=== PATIENT | female | born 1940 | race Caucasian/White ===

== ENCOUNTER → 2016-07-23 | Outpatient (CLI) | payer OTHER, MEDICARE ==
[~2016-07-23] MED LIST: ASPEC81 PO; CARV25TA2 PO; CARV6.252 PO; CHOL2000 PO; CHOL4POW4 PO; CITA20TA9 PO; CLOP1TAB15 PO; DIGO0.2518 PO; DOCU-94 PO; ERGO500037 PO; FENO54TA PO; FURO20TA PO; GLC500 PO; HYG/25 PO; INSDGI SC; LDDP5 TD; LISI-729 PO; LOSA50TA6 PO; LPT40 PO; LVMIPEN SQ; NTRSLP4 SL; NVLGIPEN SQ; POTA10CA28 PO; POTA10TA PO; SDMC1 PO; VERA120T8 PO; WARF5TAB7 PO
== END | disposition home or self-care (01) ==
LOC: C.RDSM 15:00
PROVIDERS: ATTEND Physical Medicine & Rehabilitation Sports Medicine
DX: S62.109A Fracture of unspecified carpal bone, unspecified wrist, initial encounter for closed fracture (principal); X58.XXXA Exposure to other specified factors, initial encounter

== ENCOUNTER → 2016-09-06 | Outpatient (CLI) | payer OTHER, MEDICARE ==
--- NOTE | 2016-09-06 14:32 | DIAGNOSTIC IMAGING REPORT ---
LEFT WRIST 2 VIEWS CLINICAL HISTORY: CLOSED DISPLACED FX OF STYLOID PROCESS LEFT WRIST fracture COMPARISON: 06/25/2016 DISCUSSION: Patient is now out of casting material. Partial interval healing of a slightly impacted fracture distal radius. Degenerative change considered moderate of all remaining osseous structures. IMPRESSION: Partial interval healing of a slightly impacted fracture distal radius Electronically signed by: Romel Strickland M.D. 09/06/2016 2:30 PM Dictated Date/Time: 09/06/2016 2:29 PM
== END | disposition home or self-care (01) ==
LOC: C.RDSM 13:18
PROVIDERS: ATTEND Physical Medicine & Rehabilitation Sports Medicine
DX: S52.512D Displaced fracture of left radial styloid process, subsequent encounter for closed fracture with routine healing (principal); X58.XXXD Exposure to other specified factors, subsequent encounter

== ENCOUNTER 2017-01-17 13:38 | Inpatient (IN) | payer OTHER, MEDICARE ==
[~2017-01-17] VITALS: Ht 154.9 cm; Wt 60.0 kg
[~2017-01-17 13:38] MED LIST changes: -CARV6.252 PO; -CITA20TA9 PO; -CLOP1TAB15 PO; -DOCU-94 PO; -ERGO500037 PO; -FENO54TA PO; -FURO20TA PO; -HYG/25 PO; -LDDP5 TD; -LISI-729 PO; -LVMIPEN SQ; -NVLGIPEN SQ; -POTA10CA28 PO; -SDMC1 PO; -WARF5TAB7 PO
[2017-01-17] MEDS ORDERED: TRAMADOL HCL 50 MG TAB PO STA (14:01)
--- NOTE | 2017-01-17 14:06 | EMERGENCY ROOM VISIT NOTE ---
History First contact with patient: 13:44 Chief Complaint: BACK PAIN Stated Complaint: BACK PAIN-PAIN GOES TO LT SIDE OF PELVIS, LEG, History of Present Illness The patient is a 76 year old female who presents to the Emergency Room via private vehicle with complaints of "back pain, patient goes to left side of the pelvis, left leg". The patient states that for the past few weeks she has had left inferior low back pain that has been progressing, and now radiates around the left lower flank to the left side and the pelvis and down the front of the left leg. She has had 3 massages without relief. She is tried ice without relief. She is tried Tylenol and ibuprofen without relief. She rates the pain at this time as a 10/10. She ambulates without difficulty. She denies any recent heavy lifting. There is associated nausea, of which she says is secondary to the pain. There is also minimal left-sided abdominal pain. She has a history of coronary bypass, and pacemaker placement. She denies any urinary symptoms, vaginal discharge, fevers, chills, chest pain, shortness of breath. Review of Systems A complete 10-point Review of Systems was discussed with the patient, with pertinent positives and negatives listed in the History of Present Illness. All remaining Review of Systems questions can be considered negative unless otherwise specified. 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 (3) Hyponatremia (4) Pacemaker Family History Hypertension Stroke Social History Smoking Status: Former Smoker Alcohol Use: none Drug Use: none Marital Status: Housing Status: lives with family Occupation Status: retired Current/Historical Medications Scheduled Carvedilol (Coreg), 6.25 MG PO BID Chlorthalidone (Hygroton), 25 MG PO QAM Citalopram Hydrobromide (Celexa), 20 MG PO QAM Clopidogrel (Plavix), 75 MG PO QAM Ergocalciferol (Vitamin D 36792 Unit), 50,000 UNIT PO SATURDAY Fenofibrate (Tricor), 54 MG PO QAM Insulin Aspart (Novolog Flexpen), 18 UNITS SQ AC Insulin Detemir (Levemir Flextouch), 50 UNITS SQ BID Lisinopril (Zestril), 5 MG PO QAM Potassium Chloride (Micro-K Ext Rel), 10 MEQ PO BID Verapamil Hcl (Calan Sr Ext Rel), 120 MG PO HS Warfarin Sod (Jantoven), 5 MG PO HS Warfarin Sod (Jantoven), 7.5 MG PO HS Scheduled PRN Docusate Sodium (Colace), 1 CAP PO BID PRN for Constipation Allergies Coded Allergies: Amoxicillin (Unverified Allergy, Intermediate, ITCHING/, 01/17/17) Morphine (Verified Adverse Reaction, Mild, NOSE ITCHING , 01/11/16) Nifedipine (Verified Adverse Reaction, Mild, SHAKING, 01/11/16) Physical Exam Vital Signs Date Time Temp Pulse Resp B/P (MAP) Pulse Ox O2 Delivery O2 Flow Rate FiO2 01/17/17 19:32 83 16 194/80 97 Room Air 01/17/17 19:06 79 01/17/17 18:04 117/99 01/17/17 17:20 75 17 96 01/17/17 17:15 78 16 95 01/17/17 17:10 78 17 96 01/17/17 17:01 144/69 01/17/17 16:40 76 13 97 01/17/17 16:35 76 13 97 01/17/17 16:30 156/86 01/17/17 16:05 76 13 96 01/17/17 16:00 76 16 142/83 95 01/17/17 15:42 75 16 166/74 98 Room Air 01/17/17 15:41 166/74 01/17/17 14:14 75 01/17/17 14:11 96 Room Air 01/17/17 14:11 75 16 153/92 96 Room Air 01/17/17 13:40 36.5 102 20 150/86 97 Physical Exam VITAL SIGNS - Vital signs and nursing notes were reviewed. Patient is afebrile , hypertensive 150/86, suddenly tachycardic at a rate of 102 bpm, and is saturating well on room air at 97%. GENERAL -76-year-old female appearing her stated age who is in no acute distress. Communicates well with provider and answers questions appropriately. SKIN - Without rashes. Skin overlying the left flank is unremarkable. HEAD - NC/AT. LUNGS - Chest wall symmetric without accessory muscle use, intercostals retractions, or central cyanosis. Normal vesicular breath sounds CTA B/L. No wheezes, rales, or rhonchi appreciated. CARDIAC - RRR with S1/S2. No murmur, rubs, or gallops appreciated. ABDOMEN - Abdominal contour without pulsations or visible masses. BS normoactive all four quadrants. There is tenderness to palpation overlying the left mid and left lower quadrant. No suprapubic tenderness. No palpable masses , hepatosplenomegaly, or ascites noted. EXTREMITIES - No clubbing or peripheral cyanosis. No pretibial edema present. +5 /5 strength noted in UE/LE bilaterally. Positive straight leg raise on the left. There is tenderness to palpation overlying the left inferior lumbar region, left hip extending into the left leg. NEUROLOGIC - Cranial nerves II through XII grossly intact. Sensory intact to light touch throughout. PSYCH - A&Ox3 and cooperates fully with examiner. Pt is very pleasant and interacts well with examiner. RECTAL: There are what appear to be small external hemorrhoids, however rectal exam does reveal a rather circumstantial tightening of the rectum, without tenderness elicited. Hemoccult negative. Medical Decision & Procedures ER Provider Diagnostic Interpretation: LEFT PELVIS/UNILATERAL HIP 2-3VIEWS CLINICAL HISTORY: Left hip and lower back pain. COMPARISON: Pelvis and left hip radiograph June 16, 2015. FINDINGS: The sacroiliac joints and symphysis pubis are intact. There is no acute fracture within the pelvis or hips. Surgical clips projecting inferior to the left inferior pubic ramus. Left hip joint space is preserved. There is osteophytosis of the left hip. Degenerative changes at the symphysis pubis are noted. IMPRESSION: 1. No acute fracture within the pelvis or hips. 2. Mild osteoarthritis of the left hip. Electronically signed by: Delta Ervin M.D. 01/17/2017 3:09 PM Dictated Date/Time: 01/17/2017 3:07 PM L-SPINE MIN 4 VIEWS ROUTINE CLINICAL HISTORY: 76 years-old Female presenting with Left low back pain. TECHNIQUE: Frontal, lateral, and bilateral oblique views of the lumbar spine were obtained. COMPARISON: None. FINDINGS: Mild loss of vertebral body height at L5. No evidence of compression fracture. Intervertebral disc spaces are preserved. Mild spondylosis noted. No gross evidence of osseous neural foraminal narrowing. Normal bowel gas pattern. Atherosclerosis of the abdominal aorta and splenic artery noted. IMPRESSION: 1. No evidence of compression fracture. Multilevel degenerative changes with mild vertebral body height loss at L5. Electronically signed by: Cornel Naidu 01/17/2017 3:07 PM Dictated Date/Time: 01/17/2017 3:[address] SCAN OF THE ABDOMEN AND PELVIS WITHOUT CONTRAST CLINICAL HISTORY: Left low back pain, left flank and abdominal pain. COMPARISON STUDY: No previous studies for comparison. TECHNIQUE: CT scan of the abdomen and pelvis was performed from the lung bases to the proximal femurs. Images are reviewed in the axial, sagittal, and coronal planes. IV contrast was not administered for this examination. CT DOSE: 272.01 mGy.cm FINDINGS: Lower chest: There are mild basilar atelectatic changes. Liver: The unenhanced liver is normal in size, contour, and attenuation. There is no intrahepatic biliary ductal dilatation. Gallbladder: Not visualized and either contracted or surgically absent. Spleen: The spleen is mildly enlarged measuring 13 cm Pancreas: Unremarkable. Adrenal glands: Unremarkable. Kidneys: There is a 42 mm left renal cyst. There is a punctate nonobstructing lower pole right renal calculus. There is a 4 mm lower pole left renal calculus. No ureteral or bladder calculi are visualized. Bowel: There are no transition zones indicate bowel obstruction. There are scattered colonic diverticula present. There is no acute diverticulitis. There is mild fecal retention. By history the appendix is surgically absent. There is soft tissue prominence the lower rectum/anus. Correlation with digital rectal examination is recommended. Peritoneum: There is no intraperitoneal free air or abdominal ascites. Vasculature: The abdominal aorta is normal in course and caliber. Adenopathy: None. Pelvic viscera: The uterus appears surgically absent Skeletal structures: There is nonspecific edema within the left anterior abdominal wall. IMPRESSION: 1. Bilateral nephrolithiasis. No ureteral or bladder calculi identified 2. No evidence of bowel obstruction. No evidence of free air 3. Diverticulosis. No evidence of acute diverticulitis 4. Surgically absent appendix 5. Mild fecal retention 6. Nonspecific soft tissue prominence of the lower rectum/anus. Electronically signed by: Shane Nichole M.D. 01/17/2017 6:04 PM Dictated Date/Time: 01/17/2017 5:57 PM Laboratory Results 01/17/17 14:05 Red Blood Count 3.76, Mean Corpuscular Volume 89.9, Mean Corpuscular Hemoglobin 33.8, Mean Corpuscular Hemoglobin Concent 37.6, Mean Platelet Volume 9.4, Neutrophils (%) (Auto) 52.8, Lymphocytes (%) (Auto) 33.4, Monocytes (%) (Auto) 10.5, Eosinophils (%) (Auto) 2.7, Basophils (%) (Auto) 0.4, Neutrophils # (Auto ) 2.56, Lymphocytes # (Auto) 1.62, Monocytes # (Auto) 0.51, Eosinophils # (Auto ) 0.13, Basophils # (Auto) 0.02 01/17/17 14:05 01/17/17 16:56 Test 01/17/17 14:05 01/17/17 14:15 01/17/17 15:35 01/17/17 16:56 White Blood Count 4.85 K/uL (4.8-10.8) Red Blood Count 3.76 M/uL (4.2-5.4) Hemoglobin 12.7 g/dL (12.0-16.0) Hematocrit 33.8 % (37-47) Mean Corpuscular Volume 89.9 fL (80-100) Mean Corpuscular Hemoglobin 33.8 pg (25-34) Mean Corpuscular Hemoglobin Concent 37.6 g/dl (32-36) Platelet Count 169 K/uL (130-400) Mean Platelet Volume 9.4 fL (7.4-10.4) Neutrophils (%) (Auto) 52.8 % Lymphocytes (%) (Auto) 33.4 % Monocytes (%) (Auto) 10.5 % Eosinophils (%) (Auto) 2.7 % Basophils (%) (Auto) 0.4 % Neutrophils # (Auto) 2.56 K/uL (1.4-6.5) Lymphocytes # (Auto) 1.62 K/uL (1.2-3.4) Monocytes # (Auto) 0.51 K/uL (0.11-0.59) Eosinophils # (Auto) 0.13 K/uL (0-0.5) Basophils # (Auto) 0.02 K/uL (0-0.2) RDW Standard Deviation 43.2 fL (36.4-46.3) RDW Coefficient of Variation 13.2 % (11.5-14.5) Immature Granulocyte % (Auto) 0.2 % Immature Granulocyte # (Auto) 0.01 K/uL (0.00-0.02) Anion Gap 12.0 mmol/L (3-11) Est Creatinine Clear Calc Drug Dose 20.9 ml/min Estimated GFR () 29.2 Estimated GFR (Non- 25.2 BUN/Creatinine Ratio 15.4 (10-20) Calcium Level 9.8 mg/dl (8.5-10.1) Total Bilirubin 0.4 mg/dl (0.2-1) Alanine Aminotransferase (ALT/SGPT) 27 U/L (12-78) Alkaline Phosphatase 50 U/L (45-117) Creatine Kinase MB 1.3 ng/ml (0.5-3.6) Creatine Kinase MB Ratio (0-3.0) Total Protein 7.8 gm/dl (6.4-8.2) Albumin 4.2 gm/dl (3.4-5.0) Globulin 3.6 gm/dl (2.5-4.0) Albumin/Globulin Ratio 1.2 (0.9-2) Lipase 227 U/L (73-393) Beta-Hydroxybutyric Acid 1.38 mg/dL (0.2-2.81) Prothrombin Time 27.4 SECONDS (9.0-12.0) Prothromb Time International Ratio 2.5 (0.9-1.1) Activated Partial Thromboplast Time 43.1 SECONDS (21.0-31.0) Partial Thromboplastin Ratio 1.7 Urine Color YELLOW Urine Appearance CLEAR (CLEAR) Urine pH 6.5 (4.5-7.5) Urine Specific [place] 1.017 (1.000-1.030) Urine Protein NEG (NEG) Urine Glucose (UA) 3+ (NEG) Urine Ketones NEG (NEG) Urine Occult Blood NEG (NEG) Urine Nitrite NEG (NEG) Urine Bilirubin NEG (NEG) Urine Urobilinogen NEG (NEG) Urine Leukocyte Esterase NEG (NEG) Magnesium Level 1.9 mg/dl (1.8-2.4) Aspartate Amino Transf (AST/SGOT) 19 U/L (15-37) Total Creatine Kinase 88 U/L (26-192) Chemistry Specimen Hemolysis Test 01/17/17 19:55 Osmolality 287 mOsm/kg (280-300) Medications Administered Medications (Trade) Dose Ordered Sig/Estephanie Route Start Time Stop Time Status Last Admin Dose Admin Tramadol HCl (Ultram Tab) 50 mg NOW STAT PO 01/17/17 14:01 01/17/17 14:02 DC 01/17/17 14:08 50 MG Sodium Chloride 1,000 ml @ 200 mls/hr Q5H STAT IV 01/17/17 15:10 01/17/17 20:09 DC 01/17/17 15:37 200 MLS/HR Sodium Chloride 500 ml @ 500 mls/hr Q1H STAT IV 01/17/17 15:16 01/17/17 16:15 DC 01/17/17 15:37 500 MLS/HR Acetaminophen/ Hydrocodone Bitart ([place] 5/325 Tab) 1 tab NOW STAT PO 01/17/17 19:38 01/17/17 19:39 DC 01/17/17 19:47 1 TAB Medical Decision Patient was seen and evaluated as above. After obtaining a thorough history and physical examination IV access was initiated and the above workup was performed. Patient was asked to stay with left hip pain, as well as pain rating around from the low back to the left groin. There is been no vaginal discharge. Radiographs did not reveal any acute process. The case was discussed with my attending, and the decision was made to obtain a contrasted study of the abdomen and pelvis via oral contrast. Patient's creatinine was noted to be elevated therefore IV contrast was not pursued. This reveals that there is a potential rectal mass, as well as abdominal wall edema, but no fracture. Patient's CBC reveals no leukocytosis. Anemia noted with red blood cell count at 3.76. Hemoglobin is unremarkable. INR is 2.5. CMP reveals sodium low at 125, potassium is within normal limits, chloride low at 89, anion gap high at 12, BUN high at 29, and creatinine high at 1.9. Patient's random glucose was high at 338. I suspect the patient at this time is also experiencing nausea perhaps secondary to the sodium abnormality. She'll be given normal saline. She was given tramadol for her pain reevaluated still feeling pain therefore was given [place] tablet. At this time I do believe that inpatient management is warranted secondary to the patient's overall pain, low sodium, acute renal failure and clinical scenario. The case was discussed with my attending, and subsequently the hospitalist. Please refer to further documentation regarding her stay. In evaluation treatment this patient following differential diagnoses were entertained: Hyponatremia, fracture of the hip, abdominal etiologies, infection , among others. Patient's blood pressure was elevated today, which I believe secondary to the pain. I personally reviewed the medication list. Impression Primary Impression: Hip pain Additional Impressions: Hyponatremia Acute renal failure (ARF) Departure Information Referrals Shankar Payne M.D. (PCP) Patient Instructions My [facility] Problem Qualifiers Primary Impression: Hip pain Laterality: left Qualified Codes: M25.552 - Pain in left hip
[2017-01-17] MEDS ORDERED: DOCU-94 PO (14:20)
[2017-01-17 14:22] LABS: BASO % 0.4 %; BASO ABS # 0.02 K/uL (0-0.2); COMPLETE YES; EOS % 2.7 %; HEMATOCRIT 33.8 % (37-47); IG% 0.2 %; LYMPH % 33.4 %; LYMPH ABS # 1.62 K/uL (1.2-3.4); MEAN CELL VOLUME 89.9 fL (80-100); MEAN CORPUSCULAR HEMOGLOBIN 33.8 pg (25-34); MEAN CORPUSCULAR HGB CONC 37.6 g/dl (32-36); MEAN PLATELET VOLUME 9.4 fL (7.4-10.4); MONO % 10.5 %; NEUT % 52.8 %; PLATELET COUNT 169 K/uL (130-400); RED BLOOD COUNT 3.76 M/uL (4.2-5.4); WHITE BLOOD COUNT 4.85 K/uL (4.8-10.8)
[2017-01-17] MEDS ORDERED: LISI-729 PO (14:33)
[2017-01-17] MEDS ORDERED: POTA10CA28 PO (14:33)
[2017-01-17] MEDS ORDERED: ERGO500037 PO (14:33)
[2017-01-17] MEDS ORDERED: NVLGIPEN SQ (14:33)
[2017-01-17] MEDS ORDERED: CARV6.252 PO (14:33)
[2017-01-17] MEDS ORDERED: LVMIPEN SQ ×2 (14:33→14:42)
[2017-01-17] MEDS ORDERED: FENO54TA PO (14:33)
[2017-01-17] MEDS ORDERED: CLOP1TAB15 PO (14:33)
[2017-01-17] MEDS ORDERED: HYG/25 PO (14:33)
[2017-01-17] MEDS ORDERED: WARF5TAB7 PO (14:33)
[2017-01-17] MEDS ORDERED: CITA20TA9 PO (14:33)
[2017-01-17 15:07] LABS: ALB/GLOB RATIO 1.2 (0.9-2); ALKALINE PHOSPHATASE 50 U/L (45-117); ALT/SGPT 27 U/L (12-78); BLOOD UREA NITROGEN 29 mg/dl (7-18); BUN/CREATININE RATIO 15.4 (10-20); CALCIUM 9.8 mg/dl (8.5-10.1); CARBON DIOXIDE 24 mmol/L (21-32); CHLORIDE 89 mmol/L (98-107); GLUCOSE 338 mg/dl (70-99); SODIUM 125 mmol/L (136-145)
--- NOTE | 2017-01-17 15:08 | DIAGNOSTIC IMAGING REPORT ---
L-SPINE MIN 4 VIEWS ROUTINE CLINICAL HISTORY: 76 years-old Female presenting with Left low back pain. TECHNIQUE: Frontal, lateral, and bilateral oblique views of the lumbar spine were obtained. COMPARISON: None. FINDINGS: Mild loss of vertebral body height at L5. No evidence of compression fracture. Intervertebral disc spaces are preserved. Mild spondylosis noted. No gross evidence of osseous neural foraminal narrowing. Normal bowel gas pattern. Atherosclerosis of the abdominal aorta and splenic artery noted. IMPRESSION: 1. No evidence of compression fracture. Multilevel degenerative changes with mild vertebral body height loss at L5. Electronically signed by: Cornel Naidu 01/17/2017 3:07 PM Dictated Date/Time: 01/17/2017 3:04 PM
[2017-01-17] MEDS ORDERED: SODIUM CHLORIDE 0.9% 1000ML 1,000 ML IV STA (15:10)
--- NOTE | 2017-01-17 15:10 | DIAGNOSTIC IMAGING REPORT ---
LEFT PELVIS/UNILATERAL HIP 2-3VIEWS CLINICAL HISTORY: Left hip and lower back pain. COMPARISON: Pelvis and left hip radiograph June 16, 2015. FINDINGS: The sacroiliac joints and symphysis pubis are intact. There is no acute fracture within the pelvis or hips. Surgical clips projecting inferior to the left inferior pubic ramus. Left hip joint space is preserved. There is osteophytosis of the left hip. Degenerative changes at the symphysis pubis are noted. IMPRESSION: 1. No acute fracture within the pelvis or hips. 2. Mild osteoarthritis of the left hip. Electronically signed by: Delta Ervin M.D. 01/17/2017 3:09 PM Dictated Date/Time: 01/17/2017 3:07 PM
[2017-01-17] MEDS ORDERED: SODIUM CHLORIDE 0.9% 500ML 500 ML IV STA (15:16)
[2017-01-17 15:28] LABS: BETA-HYDROXYBUTYRATE 1.38 mg/dL (0.2-2.81)
[2017-01-17 15:54] LABS: URINE APPEARANCE CLEAR (CLEAR); URINE BILIRUBIN NEG (NEG); URINE COLOR YELLOW; URINE NITRITE NEG (NEG); URINE PH 6.5 (4.5-7.5); URINE SPECIFIC GRAVITY 1.017 (1.000-1.030); UROBILINOGEN NEG (NEG); ZZUR CULT IF INDIC CLEAN CATCH NO
[2017-01-17 16:03] LABS: MANUAL MICROSCOPIC REQUIRED? NO; REVIEW REQ? NO
[2017-01-17 16:05] LABS: INR 2.5 (0.9-1.1); PARTIAL THROMBOPLASTIN RATIO 1.7; PROTHROMBIN TIME (PATIENT) 27.4 SECONDS (9.0-12.0)
--- NOTE | 2017-01-17 16:32 | EMERGENCY ROOM VISIT NOTE ---
ED Visit Note First contact with patient: 13:44 Patient was seen by our PA/INVENTORY CONTROL MANAGER. I was involved in the patient's care and did evaluate the patient myself. I was involved in the care throughout the ER stay. The patient presents with some left sided flank and abdominal pain. Laboratory workup is suggestive of some renal insufficiency/failure. Sodium slightly low. Sugar is high in the 300s. No leukocytosis. A CT has been ordered of the abdomen and pelvis. This is being done for the possibility of urinary obstruction or even diverticulitis. This result is pending. The patient's disposition will be determined based on the results of the CT scan and her continued course in the ER.
[2017-01-17 18:05] LABS: MAGNESIUM 1.9 mg/dl (1.8-2.4)
--- NOTE | 2017-01-17 18:05 | DIAGNOSTIC IMAGING REPORT ---
CT SCAN OF THE ABDOMEN AND PELVIS WITHOUT CONTRAST CLINICAL HISTORY: Left low back pain, left flank and abdominal pain. COMPARISON STUDY: No previous studies for comparison. TECHNIQUE: CT scan of the abdomen and pelvis was performed from the lung bases to the proximal femurs. Images are reviewed in the axial, sagittal, and coronal planes. IV contrast was not administered for this examination. CT DOSE: 272.01 mGy.cm FINDINGS: Lower chest: There are mild basilar atelectatic changes. Liver: The unenhanced liver is normal in size, contour, and attenuation. There is no intrahepatic biliary ductal dilatation. Gallbladder: Not visualized and either contracted or surgically absent. Spleen: The spleen is mildly enlarged measuring 13 cm Pancreas: Unremarkable. Adrenal glands: Unremarkable. Kidneys: There is a 42 mm left renal cyst. There is a punctate nonobstructing lower pole right renal calculus. There is a 4 mm lower pole left renal calculus. No ureteral or bladder calculi are visualized. Bowel: There are no transition zones indicate bowel obstruction. There are scattered colonic diverticula present. There is no acute diverticulitis. There is mild fecal retention. By history the appendix is surgically absent. There is soft tissue prominence the lower rectum/anus. Correlation with digital rectal examination is recommended. Peritoneum: There is no intraperitoneal free air or abdominal ascites. Vasculature: The abdominal aorta is normal in course and caliber. Adenopathy: None. Pelvic viscera: The uterus appears surgically absent Skeletal structures: There is nonspecific edema within the left anterior abdominal wall. IMPRESSION: 1. Bilateral nephrolithiasis. No ureteral or bladder calculi identified 2. No evidence of bowel obstruction. No evidence of free air 3. Diverticulosis. No evidence of acute diverticulitis 4. Surgically absent appendix 5. Mild fecal retention 6. Nonspecific soft tissue prominence of the lower rectum/anus. Electronically signed by: Shane Nichole M.D. 01/17/2017 6:04 PM Dictated Date/Time: 01/17/2017 5:57 PM
[2017-01-17] MEDS ORDERED: HYDROCODONE/ACETAMOPHEN 5/325MG TAB PO STA (19:38)
[2017-01-17] MEDS ORDERED: DOCUSATE SODIUM 100 MG CAP PO PRN (19:45)
--- NOTE | 2017-01-17 19:59 | History and Physical ---
History & Physical Date & Time of Service: Jan 17, 2017 at 19:57 Chief Complaint: Back Pain-Pain Goes To Lt Side Of Pelvis, Leg, Primary Care Physician: Shankar Payne M.D. History of Present Illness Source: patient Family History Hypertension Stroke Social History Smoking Status: Former Smoker Drug Use: none Marital Status: Occupational Status: retired Immunizations History of Influenza Vaccine: Yes History of Tetanus Vaccine?: Yes History of Pneumococcal: No History of Hepatitis B Vaccine: No Multi-Drug Resistant Organisms History of MDRO: No Allergies Coded Allergies: Amoxicillin (Unverified Allergy, Intermediate, ITCHING/, 01/17/17) Morphine (Verified Adverse Reaction, Mild, NOSE ITCHING , 01/11/16) Nifedipine (Verified Adverse Reaction, Mild, SHAKING, 01/11/16) Home Medications Scheduled Carvedilol (Coreg), 6.25 MG PO BID Chlorthalidone (Hygroton), 25 MG PO QAM Citalopram Hydrobromide (Celexa), 20 MG PO QAM Clopidogrel (Plavix), 75 MG PO QAM Ergocalciferol (Vitamin D 89870 Unit), 50,000 UNIT PO SATURDAY Fenofibrate (Tricor), 54 MG PO QAM Insulin Aspart (Novolog Flexpen), 18 UNITS SQ AC Insulin Detemir (Levemir Flextouch), 50 UNITS SQ BID Lisinopril (Zestril), 5 MG PO QAM Potassium Chloride (Micro-K Ext Rel), 10 MEQ PO BID Verapamil Hcl (Calan Sr Ext Rel), 120 MG PO HS Warfarin Sod (Jantoven), 5 MG PO HS Warfarin Sod (Jantoven), 7.5 MG PO HS Scheduled PRN Docusate Sodium (Colace), 1 CAP PO BID PRN for Constipation Physical Exam Vital Signs Date Time Temp Pulse Resp B/P (MAP) Pulse Ox O2 Delivery O2 Flow Rate FiO2 01/17/17 19:32 83 16 194/80 97 Room Air 01/17/17 19:06 79 01/17/17 18:04 117/99 01/17/17 17:20 75 17 96 01/17/17 17:15 78 16 95 01/17/17 17:10 78 17 96 01/17/17 17:01 144/69 01/17/17 16:40 76 13 97 01/17/17 16:35 76 13 97 01/17/17 16:30 156/86 01/17/17 16:05 76 13 96 01/17/17 16:00 76 16 142/83 95 01/17/17 15:42 75 16 166/74 98 Room Air 01/17/17 15:41 166/74 01/17/17 14:14 75 01/17/17 14:11 96 Room Air 01/17/17 14:11 75 16 153/92 96 Room Air 01/17/17 13:40 36.5 102 20 150/86 97 Diagnostics Laboratory Results Results Past 24 Hours Test 01/17/17 14:05 01/17/17 14:15 01/17/17 15:35 01/17/17 16:56 Range/Units White Blood Count 4.85 4.8-10.8 K/uL Red Blood Count 3.76 4.2-5.4 M/uL Hemoglobin 12.7 12.0-16.0 g/dL Hematocrit 33.8 37-47 % Mean Corpuscular Volume 89.9 80-100 fL Mean Corpuscular Hemoglobin 33.8 25-34 pg Mean Corpuscular Hemoglobin Concent 37.6 32-36 g/dl Platelet Count 169 130-400 K/uL Mean Platelet Volume 9.4 7.4-10.4 fL Neutrophils (%) (Auto) 52.8 % Lymphocytes (%) (Auto) 33.4 % Monocytes (%) (Auto) 10.5 % Eosinophils (%) (Auto) 2.7 % Basophils (%) (Auto) 0.4 % Neutrophils # (Auto) 2.56 1.4-6.5 K/uL Lymphocytes # (Auto) 1.62 1.2-3.4 K/uL Monocytes # (Auto) 0.51 0.11-0.59 K/uL Eosinophils # (Auto) 0.13 0-0.5 K/uL Basophils # (Auto) 0.02 0-0.2 K/uL RDW Standard Deviation 43.2 36.4-46.3 fL RDW Coefficient of Variation 13.2 11.5-14.5 % Immature Granulocyte % (Auto) 0.2 % Immature Granulocyte # (Auto) 0.01 0.00-0.02 K/uL Sodium Level 125 136-145 mmol/L Potassium Level 4.0 3.5-5.1 mmol/L Chloride Level 89 98-107 mmol/L Carbon Dioxide Level 24 21-32 mmol/L Anion Gap 12.0 3-11 mmol/L Blood Urea Nitrogen 29 7-18 mg/dl Creatinine 1.90 0.60-1.20 mg/dl Est Creatinine Clear Calc Drug Dose 20.9 ml/min Estimated GFR () 29.2 Estimated GFR (Non- 25.2 BUN/Creatinine Ratio 15.4 10-20 Random Glucose 338 70-99 mg/dl Calcium Level 9.8 8.5-10.1 mg/dl Magnesium Level 1.9 1.8-2.4 mg/dl Total Bilirubin 0.4 0.2-1 mg/dl Aspartate Amino Transf (AST/SGOT) 19 15-37 U/L Alanine Aminotransferase (ALT/SGPT) 27 12-78 U/L Alkaline Phosphatase 50 45-117 U/L Total Creatine Kinase 88 26-192 U/L Creatine Kinase MB 1.3 0.5-3.6 ng/ml Creatine Kinase MB Ratio 0-3.0 Total Protein 7.8 6.4-8.2 gm/dl Albumin 4.2 3.4-5.0 gm/dl Globulin 3.6 2.5-4.0 gm/dl Albumin/Globulin Ratio 1.2 0.9-2 Lipase 227 73-393 U/L Beta-Hydroxybutyric Acid 1.38 0.2-2.81 mg/dL Prothrombin Time 27.4 9.0-12.0 SECONDS Prothromb Time International Ratio 2.5 0.9-1.1 Activated Partial Thromboplast Time 43.1 21.0-31.0 SECONDS Partial Thromboplastin Ratio 1.7 Urine Color YELLOW Urine Appearance CLEAR CLEAR Urine pH 6.5 4.5-7.5 Urine Specific [place] 1.017 1.000-1.030 Urine Protein NEG NEG Urine Glucose (UA) 3+ NEG Urine Ketones NEG NEG Urine Occult Blood NEG NEG Urine Nitrite NEG NEG Urine Bilirubin NEG NEG Urine Urobilinogen NEG NEG Urine Leukocyte Esterase NEG NEG Chemistry Specimen Hemolysis Test 01/17/17 19:08 Range/Units Diagnostic Radiology XR hip 1. No acute fracture within the pelvis or hips. 2. Mild osteoarthritis of the left hip. CT abd/pelvis 1. Bilateral nephrolithiasis. No ureteral or bladder calculi identified 2. No evidence of bowel obstruction. No evidence of free air 3. Diverticulosis. No evidence of acute diverticulitis 4. Surgically absent appendix 5. Mild fecal retention 6. Nonspecific soft tissue prominence of the lower rectum/anus. Impression VTE Prophylaxis VTE Risk Assessment Done? Y/N: Yes Risk Level: Moderate
[2017-01-17] MEDS ORDERED: HEPARIN SOD 5000 UNIT/0.5 ML CARP SQ SCH (20:00)
[2017-01-17] MEDS ORDERED: MAGNESIUM HYDROXIDE SUSP 30 ML UDC PO PRN (20:00)
[2017-01-17] MEDS ORDERED: ALUMINUM/MAGNESIUM/SIMETH (MAALOX MAX) 30 ML UDC PO PRN (20:00)
--- NOTE | 2017-01-17 20:30 | History and Physical ---
History & Physical Date & Time of Service: Jan 17, 2017 at 20:12 Chief Complaint: Back Pain-Pain Goes To Lt Side Of Pelvis, Leg, Primary Care Physician: Shankar Payne M.D. History of Present Illness Source: patient 76 y/o F Hx CAD - CABG 12/28, IDDM, HTN, AF, atrial pacer. Pt presents with a primary compliant of L hip pain. She states that this has been progressive over the course of 2 days and she now has difficulty walking. She denies trauma to the area. She denies CP, SOB, N/V, diarrhea, dysuria or fevers. Initial labs are notable for a sodium of 125, ARF and hyperglycemia. Imaging did not reveal any acute fractures. A CT abdomen/pelvis was however suspicious for a soft tissue mass in the rectum. She did not have any related symptoms. Past Medical/Surgical History 1) CAD - NSTEMI 12/28 - cath revealed 90% stenosis of the LAD and RCA - she was referred for CABG at [place] 2) Osteoarhritis - B/L knee arthroscopy, L wrist surgery 3) IDDM 4) HTN 5) HPL 6) Chronic AF 7) Atrial pacer Family History Hypertension Stroke Social History Smoking Status: Former Smoker Drug Use: none Marital Status: Occupational Status: retired Immunizations History of Influenza Vaccine: Yes History of Tetanus Vaccine?: Yes History of Pneumococcal: No History of Hepatitis B Vaccine: No Multi-Drug Resistant Organisms History of MDRO: No Allergies Coded Allergies: Amoxicillin (Unverified Allergy, Intermediate, ITCHING/, 01/17/17) Morphine (Verified Adverse Reaction, Mild, NOSE ITCHING , 01/11/16) Nifedipine (Verified Adverse Reaction, Mild, SHAKING, 01/11/16) Home Medications Scheduled Carvedilol (Coreg), 6.25 MG PO BID Chlorthalidone (Hygroton), 25 MG PO QAM Citalopram Hydrobromide (Celexa), 20 MG PO QAM Clopidogrel (Plavix), 75 MG PO QAM Ergocalciferol (Vitamin D 05603 Unit), 50,000 UNIT PO SATURDAY Fenofibrate (Tricor), 54 MG PO QAM Insulin Aspart (Novolog Flexpen), 18 UNITS SQ AC Insulin Detemir (Levemir Flextouch), 50 UNITS SQ BID Lisinopril (Zestril), 5 MG PO QAM Potassium Chloride (Micro-K Ext Rel), 10 MEQ PO BID Verapamil Hcl (Calan Sr Ext Rel), 120 MG PO HS Warfarin Sod (Jantoven), 5 MG PO HS Warfarin Sod (Jantoven), 7.5 MG PO HS Scheduled PRN Docusate Sodium (Colace), 1 CAP PO BID PRN for Constipation Review of Systems Constitutional: No fever, No chills, No sweats Eyes: No worsening of vision ENT: No hearing loss, No unusual epistaxis, No nasal symptoms Respiratory: No cough, No wheezing Cardiovascular: No chest pain, No orthopnea, No PND Abdomen: No pain, No nausea, No vomiting Musculoskeletal: + joint pain (L hip pain as above) Genitourinary - Female: No dysuria, No urinary frequency, No urinary urgency Neurologic: No memory loss, No paralysis, No weakness Psychiatric: No depression symptoms Endocrine: No fatigue Hematologic / Lymphatic: No abnormal bleeding/bruising Integumentary: No rash Allergic / Immunologic: No environmental allergies Physical Exam Vital Signs Date Time Temp Pulse Resp B/P (MAP) Pulse Ox O2 Delivery O2 Flow Rate FiO2 01/17/17 19:32 83 16 194/80 97 Room Air 01/17/17 19:06 79 01/17/17 18:04 117/99 01/17/17 17:20 75 17 96 01/17/17 17:15 78 16 95 01/17/17 17:10 78 17 96 01/17/17 17:01 144/69 01/17/17 16:40 76 13 97 01/17/17 16:35 76 13 97 01/17/17 16:30 156/86 01/17/17 16:05 76 13 96 01/17/17 16:00 76 16 142/83 95 01/17/17 15:42 75 16 166/74 98 Room Air 01/17/17 15:41 166/74 01/17/17 14:14 75 01/17/17 14:11 96 Room Air 01/17/17 14:11 75 16 153/92 96 Room Air 01/17/17 13:40 36.5 102 20 150/86 97 General Appearance: WD/WN, no apparent distress Head: normocephalic Eyes: normal inspection ENT: normal ENT inspection, hearing grossly normal, TMs normal, pharynx normal Neck: supple, no JVD Respiratory/Chest: chest non-tender, lungs clear Cardiovascular: regular rate, rhythm, no edema, no gallop, + systolic murmur ( Mild) Abdomen/GI: normal bowel sounds, non tender, soft Genitourinary - Female: external genitalia normal, normal pelvic exam, normal cervix Back: normal inspection, no CVA tenderness, no muscle spasm Extremities/Musculoskelatal: normal inspection, no calf tenderness, normal capillary refill, no pedal edema, + pertinent finding (There was no ROM limitiation of the LLE - hip pain was elicited with passive movement. ) Neurologic/Psych: automation qtp tester II-XII nml as tested, no motor/sensory deficits, alert, normal mood/affect, normal reflexes, oriented x 3 Skin: normal color, warm/dry, no rash Diagnostics Laboratory Results Results Past 24 Hours Test 01/17/17 14:05 01/17/17 14:15 01/17/17 15:35 01/17/17 16:56 Range/Units White Blood Count 4.85 4.8-10.8 K/uL Red Blood Count 3.76 4.2-5.4 M/uL Hemoglobin 12.7 12.0-16.0 g/dL Hematocrit 33.8 37-47 % Mean Corpuscular Volume 89.9 80-100 fL Mean Corpuscular Hemoglobin 33.8 25-34 pg Mean Corpuscular Hemoglobin Concent 37.6 32-36 g/dl Platelet Count 169 130-400 K/uL Mean Platelet Volume 9.4 7.4-10.4 fL Neutrophils (%) (Auto) 52.8 % Lymphocytes (%) (Auto) 33.4 % Monocytes (%) (Auto) 10.5 % Eosinophils (%) (Auto) 2.7 % Basophils (%) (Auto) 0.4 % Neutrophils # (Auto) 2.56 1.4-6.5 K/uL Lymphocytes # (Auto) 1.62 1.2-3.4 K/uL Monocytes # (Auto) 0.51 0.11-0.59 K/uL Eosinophils # (Auto) 0.13 0-0.5 K/uL Basophils # (Auto) 0.02 0-0.2 K/uL RDW Standard Deviation 43.2 36.4-46.3 fL RDW Coefficient of Variation 13.2 11.5-14.5 % Immature Granulocyte % (Auto) 0.2 % Immature Granulocyte # (Auto) 0.01 0.00-0.02 K/uL Sodium Level 125 136-145 mmol/L Potassium Level 4.0 3.5-5.1 mmol/L Chloride Level 89 98-107 mmol/L Carbon Dioxide Level 24 21-32 mmol/L Anion Gap 12.0 3-11 mmol/L Blood Urea Nitrogen 29 7-18 mg/dl Creatinine 1.90 0.60-1.20 mg/dl Est Creatinine Clear Calc Drug Dose 20.9 ml/min Estimated GFR () 29.2 Estimated GFR (Non- 25.2 BUN/Creatinine Ratio 15.4 10-20 Random Glucose 338 70-99 mg/dl Calcium Level 9.8 8.5-10.1 mg/dl Magnesium Level 1.9 1.8-2.4 mg/dl Total Bilirubin 0.4 0.2-1 mg/dl Aspartate Amino Transf (AST/SGOT) 19 15-37 U/L Alanine Aminotransferase (ALT/SGPT) 27 12-78 U/L Alkaline Phosphatase 50 45-117 U/L Total Creatine Kinase 88 26-192 U/L Creatine Kinase MB 1.3 0.5-3.6 ng/ml Creatine Kinase MB Ratio 0-3.0 Total Protein 7.8 6.4-8.2 gm/dl Albumin 4.2 3.4-5.0 gm/dl Globulin 3.6 2.5-4.0 gm/dl Albumin/Globulin Ratio 1.2 0.9-2 Lipase 227 73-393 U/L Beta-Hydroxybutyric Acid 1.38 0.2-2.81 mg/dL Prothrombin Time 27.4 9.0-12.0 SECONDS Prothromb Time International Ratio 2.5 0.9-1.1 Activated Partial Thromboplast Time 43.1 21.0-31.0 SECONDS Partial Thromboplastin Ratio 1.7 Urine Color YELLOW Urine Appearance CLEAR CLEAR Urine pH 6.5 4.5-7.5 Urine Specific [place] 1.017 1.000-1.030 Urine Protein NEG NEG Urine Glucose (UA) 3+ NEG Urine Ketones NEG NEG Urine Occult Blood NEG NEG Urine Nitrite NEG NEG Urine Bilirubin NEG NEG Urine Urobilinogen NEG NEG Urine Leukocyte Esterase NEG NEG Chemistry Specimen Hemolysis Test 01/17/17 19:55 Range/Units Diagnostic Radiology CT abdomen / pelvis 1. Bilateral nephrolithiasis. No ureteral or bladder calculi identified 2. No evidence of bowel obstruction. No evidence of free air 3. Diverticulosis. No evidence of acute diverticulitis 4. Surgically absent appendix 5. Mild fecal retention 6. Nonspecific soft tissue prominence of the lower rectum/anus. XR hip 1. No acute fracture within the pelvis or hips. 2. Mild osteoarthritis of the left hip. EKG Atrial pacing 75 BPM - previous anterior infarct Impression Assessment and Plan 76 y/o F Hx CAD - CABG 12/28, IDDM, HTN, AF, atrial pacer. Pt presents with a primary compliant of L hip pain. She states that this has been progressive over the course of 2 days and she now has difficulty walking. She denies trauma to the area. She denies CP, SOB, N/V, diarrhea, dysuria or fevers. Initial labs are notable for a sodium of 125, ARF and hyperglycemia. Imaging did not reveal any acute fractures. A CT abdomen/pelvis was however suspicious for a soft tissue mass in the rectum. She did not have any related symptoms. 1) Hip pain - having difficulty with ambulation - no evidence of fracture - per pt request we will consult her orthopedist. She can be scheduled for PT after evaluation. 2) Hyponatremia - likely closer to 128 when corrected for Glu - this is chronic to a degree so that target should likely be around 132 per previous records. Will provide IVF and recheck AM. Will obtain Jose and UOSM. We will hold Chlorthalidone and she may need a substitution prior to D/C. 3) ARF - possibly prerenal - Jose, Ucreat ordered - IVF - hold Chlorthalidone and Lisinopril - recheck BMP AM 4) Mass seen in rectum - surgery consulted - no related symptoms at present. 5) HTN - cont, Coreg - can provide Hydralazine PRN if needed 6) CAD - post CABG 12/28 - cont Coreg, statin, ASA 7) DM - placed on SS Full code - Heparin prophylaxis Total time for this admit including review of labs, meds, EKG, imaging, records - discussion with pt and ER attending - 40 min Level of Care Med/Surg Resuscitation Status FULL RESUSCITATION VTE Prophylaxis VTE Risk Assessment Done? Y/N: Yes Risk Level: Moderate Given or contraindicated: Unfractionated heparin SQ
[2017-01-17 21:00] VITALS: BP 161/88; PULSE 76; TEMP 36.9; O2SAT 94; BMI 25.0
[2017-01-17] MEDS: VERAPAMIL HCL 120 MG TABCR PO SCH (21:54)
[2017-01-17] MEDS: CARVEDILOL 6.25 MG TAB PO SCH (21:54)
[2017-01-17] MEDS: WARFARIN SOD 5 MG TAB PO SCH (21:55)
[2017-01-17] MEDS ORDERED: POLYETHYLENE (MIRALAX) 17 GM PACK PO PRN (22:00)
[2017-01-17] MEDS ORDERED: GLUCOSE 40% GEL 15 GM TUBE PO PRN (22:00)
[2017-01-17] MEDS: SODIUM CHLORIDE 0.9% 1000ML 1,000 ML IV SCH (22:00)
[2017-01-17] MEDS ORDERED: GLUCOSE 10 TABS/TUBE PO PRN (22:00)
[2017-01-17] MEDS ORDERED: GLUCAGON FOR INJ 1 MG VIAL SQ PRN (22:00)
[2017-01-17] MEDS ORDERED: DEXTROSE 50% 50 ML SYR IV PRN (22:00)
[2017-01-17] MEDS ORDERED: IV FLUIDS COMPLETED PRN (22:15)
--- NOTE | 2017-01-17 22:34 | Orthopedic Consultation ---
Orthopedic Consultation Date of Consultation: Jan 17, 2017. Attending Physician: Glen Martin M.D. Reason for Consultation: back /hip pain History of Present Illness several day history of back pain referred to l hip/ leg Past Medical/Surgical History Medical Problems: (1) Pacemaker malfunction Status: Acute (2) TIA (transient ischemic attack) Status: Acute Family History Hypertension Stroke lives with family Social History Smoking Status: Former Smoker Smokeless Tobacco Use: No Alcohol Use: none Drug Use: none Marital Status: Housing Status: lives with family Occupation Status: retired Allergies Coded Allergies: Amoxicillin (Unverified Allergy, Intermediate, ITCHING/, 01/17/17) Morphine (Verified Adverse Reaction, Mild, NOSE ITCHING , 01/11/16) Nifedipine (Verified Adverse Reaction, Mild, SHAKING, 01/11/16) Home Medications Scheduled Carvedilol (Coreg), 6.25 MG PO BID Chlorthalidone (Hygroton), 25 MG PO QAM Citalopram Hydrobromide (Celexa), 20 MG PO QAM Clopidogrel (Plavix), 75 MG PO QAM Ergocalciferol (Vitamin D 22771 Unit), 50,000 UNIT PO SATURDAY Fenofibrate (Tricor), 54 MG PO QAM Insulin Aspart (Novolog Flexpen), 18 UNITS SQ AC Insulin Detemir (Levemir Flextouch), 50 UNITS SQ BID Lisinopril (Zestril), 5 MG PO QAM Potassium Chloride (Micro-K Ext Rel), 10 MEQ PO BID Verapamil Hcl (Calan Sr Ext Rel), 120 MG PO HS Warfarin Sod (Jantoven), 5 MG PO HS Warfarin Sod (Jantoven), 7.5 MG PO HS Scheduled PRN Docusate Sodium (Colace), 1 CAP PO BID PRN for Constipation Current Inpatient Medications Current Inpatient Medications Medications (Trade) Dose Ordered Sig/Estephanie Route Start Time Stop Time Status Last Admin Dose Admin Carvedilol (Coreg Tab) 6.25 mg BID PO 01/17/17 21:00 02/16/17 20:59 Citalopram Hydrobromide (celeXA TAB) 20 mg QAM PO 01/18/17 09:00 02/17/17 08:59 Clopidogrel Bisulfate (plAVix TAB) 75 mg QAM PO 01/18/17 09:00 02/17/17 08:59 Docusate Sodium (coLACE CAP) 100 mg BID PRN PO 01/17/17 19:45 02/16/17 19:44 Insulin Detemir (Levemir Flexpen/ FlexTouch) 50 units BID SQ 01/17/17 21:00 02/16/17 20:59 Lisinopril (Zestril Tab) 5 mg QAM PO 01/18/17 09:00 02/17/17 08:59 Verapamil HCl (Calan-Sr Tab) 120 mg HS PO 01/17/17 21:00 02/16/17 20:59 Warfarin Sodium (Coumadin Tab) 5 mg HS PO 01/17/17 21:00 02/16/17 20:59 Sodium Chloride 1,000 ml @ 100 mls/hr Q10H IV 01/17/17 21:45 01/18/17 17:44 Tramadol HCl (Ultram Tab) 50 mg Q4H PRN PO 01/17/17 20:00 02/16/17 19:59 Acetaminophen (Tylenol Tab) 650 mg Q4H PRN PO 01/17/17 20:00 02/16/17 19:59 Al Hydrox/Mg Hydrox/Simethicone (Maalox Max Susp) 15 ml Q4H PRN PO 01/17/17 20:00 02/16/17 19:59 Magnesium Hydroxide (Milk Of Magnesia Susp) 30 ml Q6H PRN PO 01/17/17 20:00 02/16/17 19:59 Polyethylene (Miralax Powder Packet) 17 gm DAILY PRN PO 01/17/17 22:00 02/16/17 21:59 Ondansetron HCl (Zofran Inj) 4 mg Q6H PRN IV 01/17/17 20:00 02/16/17 19:59 Insulin Aspart (novoLOG ASPART) SLIDING SCALE G... ACHS SC 01/17/17 21:00 02/16/17 20:59 Glucose (Glucose 40% Gel) 15-30 GRAMS 15 GRAMS... UD PRN PO 01/17/17 22:00 02/16/17 21:59 Glucose (Glucose Chew Tab) 4-8 Tablets 4 Tabl... UD PRN PO 01/17/17 22:00 02/16/17 21:59 Dextrose (Dextrose 50% 50ML Syringe) 25-50ML OF 50% DW IV FOR... UD PRN IV 01/17/17 22:00 02/16/17 21:59 Glucagon (Glucagon Inj) 1 mg UD PRN SQ 01/17/17 22:00 02/16/17 21:59 Miscellaneous (Iv Fluids Completed) 1 ea PRN PRN N/A 01/17/17 22:15 01/17/18 22:14 Review of Systems Constitutional: + problem reported, No fever, No chills, No sweats, No weight loss, No weakness, No fatigue Musculoskeletal: + joint pain, + muscle pain, + swelling, + calf pain, + problem reported Genitourinary - Female: No dysuria, No urinary frequency, No urinary urgency, No urinary incontinence, No urinary retention, No hematuria, No dysmenorrhea, No menorrhagia, No metrorrhagia, No rash, No vaginal bleeding, No vaginal discharge, No vaginal itching, No vulvodynia, No , No problem reported Neurologic: No memory loss, No paralysis, No weakness, No numbness/tingling, No vertigo, No balance problems, No problem reported Psychiatric: No depression symptoms, No anhedonism, No anxiety, No insomnia, No substance abuse, No problem reported Hematologic / Lymphatic: No abnormal bleeding/bruising, No clotting problems, No swollen lymph nodes, No night sweats, No problem reported Integumentary: No rash, No itch, No new/changing skin lesions, No color change , No bleeding, No problem reported Physical Exam Date Time Temp Pulse Resp B/P (MAP) Pulse Ox O2 Delivery O2 Flow Rate FiO2 01/17/17 21:00 36.9 76 16 161/88 01/17/17 20:45 76 16 182/96 97 Room Air 01/17/17 19:32 83 16 194/80 97 Room Air 01/17/17 19:06 79 01/17/17 18:04 117/99 01/17/17 17:20 75 17 96 01/17/17 17:15 78 16 95 01/17/17 17:10 78 17 96 01/17/17 17:01 144/69 01/17/17 16:40 76 13 97 01/17/17 16:35 76 13 97 01/17/17 16:30 156/86 01/17/17 16:05 76 13 96 01/17/17 16:00 76 16 142/83 95 01/17/17 15:42 75 16 166/74 98 Room Air 01/17/17 15:41 166/74 01/17/17 14:14 75 01/17/17 14:11 96 Room Air 01/17/17 14:11 75 16 153/92 96 Room Air 01/17/17 13:40 36.5 102 20 150/86 97 General Appearance: + mild distress Head: normocephalic, atraumatic Eyes: PERRL, EOMI Neck: supple Respiratory/Chest: chest non-tender, no respiratory distress, no accessory muscle use Cardiovascular: regular rate, rhythm Abdomen/GI: non tender Back: + decreased range of motion Extremities/Musculoskelatal: normal inspection, no calf tenderness, no pedal edema, + pertinent finding (SI tenderness/mild trochanteric bursitis tenderness) Neurologic/Psych: flow match sofa cutter II-XII nml as tested, no motor/sensory deficits, alert, normal reflexes, oriented x 3 Laboratory Results Last 24 Hours Test 01/17/17 14:05 01/17/17 14:15 01/17/17 15:35 01/17/17 16:56 White Blood Count 4.85 K/uL Red Blood Count 3.76 M/uL Hemoglobin 12.7 g/dL Hematocrit 33.8 % Mean Corpuscular Volume 89.9 fL Mean Corpuscular Hemoglobin 33.8 pg Mean Corpuscular Hemoglobin Concent 37.6 g/dl Platelet Count 169 K/uL Mean Platelet Volume 9.4 fL Neutrophils (%) (Auto) 52.8 % Lymphocytes (%) (Auto) 33.4 % Monocytes (%) (Auto) 10.5 % Eosinophils (%) (Auto) 2.7 % Basophils (%) (Auto) 0.4 % Neutrophils # (Auto) 2.56 K/uL Lymphocytes # (Auto) 1.62 K/uL Monocytes # (Auto) 0.51 K/uL Eosinophils # (Auto) 0.13 K/uL Basophils # (Auto) 0.02 K/uL RDW Standard Deviation 43.2 fL RDW Coefficient of Variation 13.2 % Immature Granulocyte % (Auto) 0.2 % Immature Granulocyte # (Auto) 0.01 K/uL Sodium Level 125 mmol/L Potassium Level mmol/L mmol/L 4.0 mmol/L Chloride Level 89 mmol/L Carbon Dioxide Level 24 mmol/L Anion Gap 12.0 mmol/L Blood Urea Nitrogen 29 mg/dl Creatinine 1.90 mg/dl Est Creatinine Clear Calc Drug Dose 20.9 ml/min Estimated GFR () 29.2 Estimated GFR (Non- 25.2 BUN/Creatinine Ratio 15.4 Random Glucose 338 mg/dl Calcium Level 9.8 mg/dl Magnesium Level mg/dl mg/dl 1.9 mg/dl Total Bilirubin 0.4 mg/dl Aspartate Amino Transf (AST/SGOT) U/L U/L 19 U/L Alanine Aminotransferase (ALT/SGPT) 27 U/L Alkaline Phosphatase 50 U/L Total Creatine Kinase U/L U/L 88 U/L Creatine Kinase MB 1.3 ng/ml Creatine Kinase MB Ratio Total Protein 7.8 gm/dl Albumin 4.2 gm/dl Globulin 3.6 gm/dl Albumin/Globulin Ratio 1.2 Lipase 227 U/L Beta-Hydroxybutyric Acid 1.38 mg/dL Prothrombin Time 27.4 SECONDS Prothromb Time International Ratio 2.5 Activated Partial Thromboplast Time 43.1 SECONDS Partial Thromboplastin Ratio 1.7 Urine Color YELLOW Urine Appearance CLEAR Urine pH 6.5 Urine Specific [place] 1.017 Urine Protein NEG Urine Glucose (UA) 3+ Urine Ketones NEG Urine Occult Blood NEG Urine Nitrite NEG Urine Bilirubin NEG Urine Urobilinogen NEG Urine Leukocyte Esterase NEG Chemistry Specimen Hemolysis Test 01/17/17 19:55 01/17/17 21:12 01/17/17 21:15 Osmolality 287 mOsm/kg Bedside Glucose 318 mg/dl Urine Osmolality 245 mOms/kg Assessment & Plan (1) Hip pain Permanent Comment: back and SI joint pain Last Edited By: Sal Etienne on Jan 17, 2017 23:00 Assessment & Plan: back and hip 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
[2017-01-17] MEDS: INSULIN DETEMIR FLEXPEN/FLEX TOUCH 100 UNITS/ML 3ML SQ SCH (22:51)
[2017-01-17] MEDS: INSULIN ASPART 100 UNITS/ML 3 ML PEN SC SCH (22:52)
[2017-01-17 23:03] VITALS: BP 159/77; PULSE 76; TEMP 36.9; O2SAT 97
[2017-01-17] MEDS ORDERED: NURSING VERBAL MED ORDER ONE (23:15)
[2017-01-17] MEDS: TRAMADOL HCL 50 MG TAB PO PRN (23:39)
[2017-01-18] MEDS: TRAMADOL HCL 50 MG TAB PO PRN ×4 (03:46→17:45)
[2017-01-18] MEDS: SODIUM CHLORIDE 0.9% 1000ML 1,000 ML IV SCH (07:31)
[2017-01-18 07:33] LABS: INR 2.7 (0.9-1.1); PROTHROMBIN TIME (PATIENT) 29.8 SECONDS (9.0-12.0)
[2017-01-18 07:39] VITALS: BP 143/74; PULSE 75; TEMP 36.5; O2SAT 95
[2017-01-18 07:52] LABS: MEAN CELL VOLUME 88.1 fL (80-100); MEAN CORPUSCULAR HEMOGLOBIN 32.8 pg (25-34); MEAN CORPUSCULAR HGB CONC 37.2 g/dl (32-36); MEAN PLATELET VOLUME 8.9 fL (7.4-10.4); PLATELET COUNT 135 K/uL (130-400); RED BLOOD COUNT 3.29 M/uL (4.2-5.4); WHITE BLOOD COUNT 4.53 K/uL (4.8-10.8)
[2017-01-18 08:10] LABS: BUN/CREATININE RATIO 17.1 (10-20); CALCIUM 9.4 mg/dl (8.5-10.1); CREATININE 1.5 mg/dl (0.60-1.20); MAGNESIUM 1.7 mg/dl (1.8-2.4); POTASSIUM 3.7 mmol/L (3.5-5.1)
[2017-01-18] MEDS: INSULIN ASPART 100 UNITS/ML 3 ML PEN SC SCH ×4 (09:46→20:45)
[2017-01-18] MEDS: INSULIN DETEMIR FLEXPEN/FLEX TOUCH 100 UNITS/ML 3ML SQ SCH ×2 (09:47→20:45)
[2017-01-18] MEDS: CLOPIDOGREL BISULFATE 75 MG TAB PO SCH (09:47)
[2017-01-18] MEDS: CITALOPRAM 20 MG TAB PO SCH (09:47)
[2017-01-18] MEDS: LISINOPRIL 5 MG TAB PO SCH (09:47)
[2017-01-18] MEDS: CARVEDILOL 6.25 MG TAB PO SCH ×2 (09:47→20:48)
--- NOTE | 2017-01-18 10:09 | Medical Consult ---
Consultation Date of Consultation: Jan 18, 2017. Attending Physician: Glen Martin M.D. Reason for Consultation: Evaluation of soft tissue prominence of lower rectum/anus found on CT. History of Present Illness Ms. Garcia is a 76-year-old female who states that her granddaughter brought her to [facility] ED yesterday due to intense back pain. She states that this back pain is not new. Patient denies abdominal pain. Denies nausea or vomiting. Denies changes in bowel habits. Denies rectal bleeding. Reports that she is eating well at home. Patient reports that she has had polyps removed on two different occasions- the most recent occasion was last year with LUIS EDUARDO Bergman ([place])- she is not sure when she is supposed to follow-up with him. Past Medical/Surgical History Medical Problems: (1) Acute renal failure (ARF) Status: Acute (2) Hip pain Permanent Comment: back and SI joint pain Status: Acute (3) Pacemaker malfunction Status: Acute (4) TIA (transient ischemic attack) Status: Acute Family History Hypertension Stroke Social History Smoking Status: Former Smoker Smokeless Tobacco Use: No Alcohol Use: none Drug Use: none Marital Status: Housing Status: lives with family Occupation Status: retired Allergies Coded Allergies: Amoxicillin (Unverified Allergy, Intermediate, ITCHING/, 01/17/17) Morphine (Verified Adverse Reaction, Mild, NOSE ITCHING , 01/11/16) Nifedipine (Verified Adverse Reaction, Mild, SHAKING, 01/11/16) Home Medications Carvedilol (Coreg), 6.25 MG PO BID Chlorthalidone (Hygroton), 25 MG PO QAM Citalopram Hydrobromide (Celexa), 20 MG PO QAM Clopidogrel (Plavix), 75 MG PO QAM Ergocalciferol (Vitamin D 04194 Unit), 50,000 UNIT PO SATURDAY Fenofibrate (Tricor), 54 MG PO QAM Insulin Aspart (Novolog Flexpen), 18 UNITS SQ AC Insulin Detemir (Levemir Flextouch), 50 UNITS SQ BID Lisinopril (Zestril), 5 MG PO QAM Potassium Chloride (Micro-K Ext Rel), 10 MEQ PO BID Verapamil Hcl (Calan Sr Ext Rel), 120 MG PO HS Warfarin Sod (Jantoven), 5 MG PO HS Warfarin Sod (Jantoven), 7.5 MG PO HS Current Inpatient Medications Current Inpatient Medications Medications (Trade) Dose Ordered Sig/Estephanie Route Start Time Stop Time Status Last Admin Dose Admin Carvedilol (Coreg Tab) 6.25 mg BID PO 01/17/17 21:00 02/16/17 20:59 01/18/17 09:47 6.25 MG Citalopram Hydrobromide (celeXA TAB) 20 mg QAM PO 01/18/17 09:00 02/17/17 08:59 01/18/17 09:47 20 MG Clopidogrel Bisulfate (plAVix TAB) 75 mg QAM PO 01/18/17 09:00 02/17/17 08:59 01/18/17 09:47 75 MG Docusate Sodium (coLACE CAP) 100 mg BID PRN PO 01/17/17 19:45 02/16/17 19:44 Insulin Detemir (Levemir Flexpen/ FlexTouch) 50 units BID SQ 01/17/17 21:00 02/16/17 20:59 01/18/17 09:47 50 UNITS Lisinopril (Zestril Tab) 5 mg QAM PO 01/18/17 09:00 02/17/17 08:59 01/18/17 09:47 5 MG Verapamil HCl (Calan-Sr Tab) 120 mg HS PO 01/17/17 21:00 02/16/17 20:59 01/17/17 21:54 120 MG Warfarin Sodium (Coumadin Tab) 5 mg HS PO 01/17/17 21:00 02/16/17 20:59 01/17/17 21:55 5 MG Sodium Chloride 1,000 ml @ 100 mls/hr Q10H IV 01/17/17 21:45 01/18/17 17:44 01/18/17 07:31 100 MLS/HR Tramadol HCl (Ultram Tab) 50 mg Q4H PRN PO 01/17/17 20:00 02/16/17 19:59 01/18/17 07:45 50 MG Acetaminophen (Tylenol Tab) 650 mg Q4H PRN PO 01/17/17 20:00 02/16/17 19:59 Al Hydrox/Mg Hydrox/Simethicone (Maalox Max Susp) 15 ml Q4H PRN PO 01/17/17 20:00 02/16/17 19:59 Magnesium Hydroxide (Milk Of Magnesia Susp) 30 ml Q6H PRN PO 01/17/17 20:00 02/16/17 19:59 Polyethylene (Miralax Powder Packet) 17 gm DAILY PRN PO 01/17/17 22:00 02/16/17 21:59 Ondansetron HCl (Zofran Inj) 4 mg Q6H PRN IV 01/17/17 20:00 02/16/17 19:59 Insulin Aspart (novoLOG ASPART) SLIDING SCALE G... ACHS SC 01/17/17 21:00 02/16/17 20:59 01/18/17 09:46 9 UNITS Glucose (Glucose 40% Gel) 15-30 GRAMS 15 GRAMS... UD PRN PO 01/17/17 22:00 02/16/17 21:59 Glucose (Glucose Chew Tab) 4-8 Tablets 4 Tabl... UD PRN PO 01/17/17 22:00 02/16/17 21:59 Dextrose (Dextrose 50% 50ML Syringe) 25-50ML OF 50% DW IV FOR... UD PRN IV 01/17/17 22:00 02/16/17 21:59 Glucagon (Glucagon Inj) 1 mg UD PRN SQ 01/17/17 22:00 02/16/17 21:59 Miscellaneous (Iv Fluids Completed) 1 ea PRN PRN N/A 01/17/17 22:15 01/17/18 22:14 Review of Systems Constitutional: No fever, No chills Abdomen: No pain, No nausea, No vomiting, No diarrhea, No constipation, No GI bleeding Physical Exam Date Time Temp Pulse Resp B/P (MAP) Pulse Ox O2 Delivery O2 Flow Rate FiO2 01/18/17 08:05 Room Air 01/18/17 07:39 36.5 75 16 143/74 (97) 95 Room Air 01/17/17 23:40 Room Air 01/17/17 23:03 36.9 76 16 159/77 (104) 97 Room Air 01/17/17 21:00 36.9 76 16 161/88 94 Room Air 01/17/17 20:45 76 16 182/96 97 Room Air 01/17/17 19:32 83 16 194/80 97 Room Air 01/17/17 19:06 79 01/17/17 18:04 117/99 01/17/17 17:20 75 17 96 01/17/17 17:15 78 16 95 01/17/17 17:10 78 17 96 01/17/17 17:01 144/69 01/17/17 16:40 76 13 97 01/17/17 16:35 76 13 97 01/17/17 16:30 156/86 01/17/17 16:05 76 13 96 01/17/17 16:00 76 16 142/83 95 01/17/17 15:42 75 16 166/74 98 Room Air 01/17/17 15:41 166/74 01/17/17 14:14 75 01/17/17 14:11 96 Room Air 01/17/17 14:11 75 16 153/92 96 Room Air 01/17/17 13:40 36.5 102 20 150/86 97 General Appearance: WD/WN, no apparent distress Abdomen/GI: normal bowel sounds, non tender, soft, normal rectal exam (Digital rectal exam- benign. ) Laboratory Results Last 24 Hours Test 01/17/17 14:05 01/17/17 14:15 01/17/17 15:35 01/17/17 16:56 White Blood Count 4.85 K/uL Red Blood Count 3.76 M/uL Hemoglobin 12.7 g/dL Hematocrit 33.8 % Mean Corpuscular Volume 89.9 fL Mean Corpuscular Hemoglobin 33.8 pg Mean Corpuscular Hemoglobin Concent 37.6 g/dl Platelet Count 169 K/uL Mean Platelet Volume 9.4 fL Neutrophils (%) (Auto) 52.8 % Lymphocytes (%) (Auto) 33.4 % Monocytes (%) (Auto) 10.5 % Eosinophils (%) (Auto) 2.7 % Basophils (%) (Auto) 0.4 % Neutrophils # (Auto) 2.56 K/uL Lymphocytes # (Auto) 1.62 K/uL Monocytes # (Auto) 0.51 K/uL Eosinophils # (Auto) 0.13 K/uL Basophils # (Auto) 0.02 K/uL RDW Standard Deviation 43.2 fL RDW Coefficient of Variation 13.2 % Immature Granulocyte % (Auto) 0.2 % Immature Granulocyte # (Auto) 0.01 K/uL Sodium Level 125 mmol/L Potassium Level mmol/L mmol/L 4.0 mmol/L Chloride Level 89 mmol/L Carbon Dioxide Level 24 mmol/L Anion Gap 12.0 mmol/L Blood Urea Nitrogen 29 mg/dl Creatinine 1.90 mg/dl Est Creatinine Clear Calc Drug Dose 20.9 ml/min Estimated GFR () 29.2 Estimated GFR (Non- 25.2 BUN/Creatinine Ratio 15.4 Random Glucose 338 mg/dl Calcium Level 9.8 mg/dl Magnesium Level mg/dl mg/dl 1.9 mg/dl Total Bilirubin 0.4 mg/dl Aspartate Amino Transf (AST/SGOT) U/L U/L 19 U/L Alanine Aminotransferase (ALT/SGPT) 27 U/L Alkaline Phosphatase 50 U/L Total Creatine Kinase U/L U/L 88 U/L Creatine Kinase MB 1.3 ng/ml Creatine Kinase MB Ratio Total Protein 7.8 gm/dl Albumin 4.2 gm/dl Globulin 3.6 gm/dl Albumin/Globulin Ratio 1.2 Lipase 227 U/L Beta-Hydroxybutyric Acid 1.38 mg/dL Prothrombin Time 27.4 SECONDS Prothromb Time International Ratio 2.5 Activated Partial Thromboplast Time 43.1 SECONDS Partial Thromboplastin Ratio 1.7 Urine Color YELLOW Urine Appearance CLEAR Urine pH 6.5 Urine Specific [place] 1.017 Urine Protein NEG Urine Glucose (UA) 3+ Urine Ketones NEG Urine Occult Blood NEG Urine Nitrite NEG Urine Bilirubin NEG Urine Urobilinogen NEG Urine Leukocyte Esterase NEG Chemistry Specimen Hemolysis Test 01/17/17 19:55 01/17/17 21:12 01/17/17 21:15 01/18/17 01:58 Osmolality 287 mOsm/kg Bedside Glucose 318 mg/dl 293 mg/dl Urine Osmolality 245 mOms/kg Urine Random Creatinine 15.0 mg/dl Urine Random Sodium 55 mEq/L Test 01/18/17 06:02 01/18/17 07:56 White Blood Count 4.53 K/uL Red Blood Count 3.29 M/uL Hemoglobin 10.8 g/dL Hematocrit 29.0 % Mean Corpuscular Volume 88.1 fL Mean Corpuscular Hemoglobin 32.8 pg Mean Corpuscular Hemoglobin Concent 37.2 g/dl RDW Standard Deviation 42.5 fL RDW Coefficient of Variation 13.0 % Platelet Count 135 K/uL Mean Platelet Volume 8.9 fL Prothrombin Time 29.8 SECONDS Prothromb Time International Ratio 2.7 Sodium Level 128 mmol/L Potassium Level 3.7 mmol/L Chloride Level 93 mmol/L Carbon Dioxide Level 25 mmol/L Anion Gap 10.0 mmol/L Blood Urea Nitrogen 26 mg/dl Creatinine 1.50 mg/dl Est Creatinine Clear Calc Drug Dose 26.5 ml/min Estimated GFR () 38.8 Estimated GFR (Non- 33.5 BUN/Creatinine Ratio 17.1 Random Glucose 203 mg/dl Calcium Level 9.4 mg/dl Magnesium Level 1.7 mg/dl Chemistry Specimen Hemolysis Bedside Glucose 235 mg/dl Assessment & Plan Dr. Perez in to see and examine patient. No abnormal findings with rectal exam. Recommend that patient follow-up with Dr. Bruno, GI ([place]). No surgical intervention indicated. Thank you for this consult.
[2017-01-18 15:25] VITALS: BP 136/79; PULSE 74; TEMP 36.5; O2SAT 96
[2017-01-18 15:53] VITALS: BP 142/74; PULSE 77; O2SAT 96
[2017-01-18] MEDS: ONDANSETRON INJ 2 MG/ML 2 ML VIAL IV PRN (20:32)
[2017-01-18] MEDS: VERAPAMIL HCL 120 MG TABCR PO SCH (20:47)
[2017-01-18] MEDS: LIDODERM (LIDOCAINE) PATCH 5% TD SCH (20:47)
[2017-01-18] MEDS: WARFARIN SOD 5 MG TAB PO SCH (20:48)
[2017-01-18 23:15] VITALS: BP 166/85; PULSE 75; TEMP 36.5; O2SAT 96
--- NOTE | 2017-01-19 01:28 | Hospitalist Progress Note ---
Hospitalist Progress Note Date of Service Jan 18, 2017. Subjective Pt evaluation today including: conversation w/ patient Patient has back pain improved with tramadol Objective Vital Signs Date Time Temp Pulse Resp B/P (MAP) Pulse Ox O2 Delivery O2 Flow Rate FiO2 01/19/17 00:05 Room Air 01/18/17 23:15 36.5 75 16 166/85 (112) 96 Room Air 01/18/17 15:53 77 96 01/18/17 15:30 Room Air 01/18/17 15:25 36.5 74 18 136/79 (98) 96 Room Air 01/18/17 08:05 Room Air 01/18/17 07:39 36.5 75 16 143/74 (97) 95 Room Air Physical Exam General Appearance: no apparent distress ENT: hearing grossly normal Neck: supple, trachea midline Respiratory/Chest: lungs clear Cardiovascular: regular rate, rhythm Abdomen: non tender Neurologic/Psychiatric: alert Laboratory Results Last 24 Hours Test 01/18/17 01:58 01/18/17 06:02 01/18/17 07:56 01/18/17 11:55 Bedside Glucose 293 mg/dl 235 mg/dl 264 mg/dl White Blood Count 4.53 K/uL Red Blood Count 3.29 M/uL Hemoglobin 10.8 g/dL Hematocrit 29.0 % Mean Corpuscular Volume 88.1 fL Mean Corpuscular Hemoglobin 32.8 pg Mean Corpuscular Hemoglobin Concent 37.2 g/dl RDW Standard Deviation 42.5 fL RDW Coefficient of Variation 13.0 % Platelet Count 135 K/uL Mean Platelet Volume 8.9 fL Prothrombin Time 29.8 SECONDS Prothromb Time International Ratio 2.7 Sodium Level 128 mmol/L Potassium Level 3.7 mmol/L Chloride Level 93 mmol/L Carbon Dioxide Level 25 mmol/L Anion Gap 10.0 mmol/L Blood Urea Nitrogen 26 mg/dl Creatinine 1.50 mg/dl Est Creatinine Clear Calc Drug Dose 26.5 ml/min Estimated GFR () 38.8 Estimated GFR (Non- 33.5 BUN/Creatinine Ratio 17.1 Random Glucose 203 mg/dl Calcium Level 9.4 mg/dl Magnesium Level 1.7 mg/dl Chemistry Specimen Hemolysis Test 01/18/17 17:08 01/18/17 20:39 Bedside Glucose 234 mg/dl 248 mg/dl Assessment and Plan (1) Hyponatremia Assessment & Plan: Continue IV hydration (2) Hip pain Assessment & Plan: 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
[2017-01-19 07:32] VITALS: BP 148/80; PULSE 76; TEMP 36.4; O2SAT 96
[2017-01-19] MEDS: ONDANSETRON INJ 2 MG/ML 2 ML VIAL IV PRN ×2 (08:41→17:16)
--- NOTE | 2017-01-19 08:46 | Orthopedic Progress Note ---
Orthopedic Progress Note Date of Service Jan 19, 2017. Subjective Post OP Day: Additional Notes: Patient reports intermittent nausea and emesis. She denies any chest pain shortness of breath fever chills or fever. She most that the tramadol makes her a little bit lightheaded. She likes the Lidoderm patch. She notes her pain is much better. She is requesting to go home. Objective calves soft nontender, N/V intact Date Time Temp Pulse Resp B/P (MAP) Pulse Ox O2 Delivery O2 Flow Rate FiO2 01/19/17 07:32 36.4 76 16 148/80 (102) 96 Room Air 01/19/17 07:15 Room Air 01/19/17 00:05 Room Air 01/18/17 23:15 36.5 75 16 166/85 (112) 96 Room Air 01/18/17 15:53 77 96 01/18/17 15:30 Room Air 01/18/17 15:25 36.5 74 18 136/79 (98) 96 Room Air Assessment & Plan Assessment: Doing better from an orthopedic perspective. The nausea and emesis will need to be assessed by medicine. She has no abdominal pain or chest pain. This could be medication related. We'll wait for medicines assessment. From an orthopedic perspective she should be set up for outpatient pain medicine/ physiatry assessment. She is requesting Dr. Joseluis Dickey. He is at [facility]. Appointment can be made for her there. Phone number is [phone]. Plan: See above notation assessment. (1) Hip pain
[2017-01-19] MEDS: INSULIN ASPART 100 UNITS/ML 3 ML PEN SC SCH ×4 (08:52→21:40)
[2017-01-19] MEDS: INSULIN DETEMIR FLEXPEN/FLEX TOUCH 100 UNITS/ML 3ML SQ SCH ×2 (08:54→21:41)
[2017-01-19] MEDS: LIDODERM (LIDOCAINE) PATCH 5% TD SCH (09:26)
[2017-01-19] MEDS: CITALOPRAM 20 MG TAB PO SCH (10:03)
[2017-01-19] MEDS: LISINOPRIL 5 MG TAB PO SCH (10:03)
[2017-01-19] MEDS: CLOPIDOGREL BISULFATE 75 MG TAB PO SCH (10:03)
[2017-01-19] MEDS: CARVEDILOL 6.25 MG TAB PO SCH ×2 (10:03→21:35)
[2017-01-19 15:30] VITALS: BP 150/90; PULSE 77; TEMP 36.8; O2SAT 96
[2017-01-19] MEDS ORDERED: PHARMACY GLYCEMIC MGMT CONSULT PRN (17:55)
[2017-01-19] MEDS ORDERED: NURSING VERBAL MED ORDER ONE (18:45)
[2017-01-19] MEDS ORDERED: SODIUM CHLOR 0.45% + 20MEQ KCL 1,000 ML IV SCH (19:00)
--- NOTE | 2017-01-19 19:09 | Hospitalist Progress Note ---
Hospitalist Progress Note Date of Service Jan 19, 2017. Subjective Patient complaining of intractable nausea and vomiting Abdomen: + vomiting Objective Vital Signs Date Time Temp Pulse Resp B/P (MAP) Pulse Ox O2 Delivery O2 Flow Rate FiO2 01/19/17 15:45 Room Air 01/19/17 15:30 36.8 77 18 150/90 (110) 96 Room Air 01/19/17 07:32 36.4 76 16 148/80 (102) 96 Room Air 01/19/17 07:15 Room Air 01/19/17 00:05 Room Air 01/18/17 23:15 36.5 75 16 166/85 (112) 96 Room Air Physical Exam General Appearance: no apparent distress ENT: hearing grossly normal Neck: trachea midline Respiratory/Chest: lungs clear Cardiovascular: regular rate, rhythm Abdomen: normal bowel sounds, non tender, soft Laboratory Results Last 24 Hours Test 01/18/17 20:39 01/19/17 08:20 01/19/17 12:14 01/19/17 17:05 Bedside Glucose 248 mg/dl 251 mg/dl 228 mg/dl 215 mg/dl Assessment and Plan (1) Hyponatremia Assessment & Plan: Intractable nausea and vomiting will utilize IV hydration they can by mouth (2) Hip pain Assessment & Plan: Lidocaine patch working (3) Pacemaker Problem Qualifiers (1) Hip pain: Laterality: left Qualified Codes: M25.552 - Pain in left hip
--- NOTE | 2017-01-19 19:13 | Pharmacy Progress Note ---
Glycemic Control Intl Consult Date of Service Jan 19, 2017. Scope Glycemic Pharmacist consulted by Dr Lujan on 01/19/17 for glycemic control and to write orders per [facility] inpatient glycemic control protocol Objective Weight (Kilograms): 60.000 Accuchecks BSG (last 24hrs): Test 01/18/17 20:39 01/19/17 08:20 01/19/17 12:14 01/19/17 17:05 Bedside Glucose 248 mg/dl (70-90) 251 mg/dl (70-90) 228 mg/dl (70-90) 215 mg/dl (70-90) Recent Pertinent Medications Outpatient Anti-diabetic Regimen: * Levemir 50 units BID + Novolog 18 units AC The patient is currently receiving: * Basal insulin: Levemire 50 units every 12 hours * Correctional Insulin: Novolog Correction per scale ACHS Goal Range: Low 120 mg/dL - High 160 mg/dL Correction Factor: 40 mg/dL/unit * Prandial insulin: Per carb ratio of 1 unit per 10 grams CHO consumed Risk Factors for Insulin Resistance: * Diet: NPO except ice chips Assessment & Plan ASSESSMENT: * ADA & AACE recommend a goal blood sugar range 140-180 mg/dl for the majority of critically ill & non-critically ill patients. However, more stringent targets may be selected in individual cases. Will utilize more stringent goal of 110-140mg/dl based on patient age & comorbidities. Additionally, tighter glycemic control is warranted to minimize any complications from back pain. * Ms Garcia was admitted 01/17/17 with back pain. She was initially started on her home dose of Levemir 50 units twice daily plus correctional insulin with CF of 40 mg/dL/unit and CR of 1:10. Yesterday, the patient's blood sugars ranged from 203-264 mg/dL with a fasting of 235 mg/dL. Her total insulin dose was 127 units. At home her daily insulin dose is 154 units/day. * Now Ms Garcia is NPO except for ice chips. I reduced her Lantus dose by 20% to reflect an NPO status. The correctional insulin was still tightened signficiantly. Based upon an estimated current total daily insulin dose of 150 units/day, the correction factor should be 10 and carbohydrate ratio 4. I chose numbers between the current dose and what was recommended here. An 0200 accucheck was added to ensure overnight blood sugars are not high. PLAN FOR INPATIENT GLYCEMIC CONTROL: * DECREASING Lantus to 40 units SQ BID due to NPO status * TIGHTENING correction factor to 20 mg/dl/unit * TIGHTENING carb ratio to 1 unit per 6 grams CHO consumed * TIGHTENING goal range to Low 110 mg/dL - High 140 mg/dL * Please note that the plan above was derived based on current level of insulin resistance and hospital stress. These recommendations are appropriate for inpatient admission only. Plan of care upon discharge will need to be reassessed to avoid potential outpatient hypo/hyperglycemia. Thank you.
[2017-01-19] MEDS: METOCLOPRAMIDE HCL INJ 5 MG/ML 2 ML VIAL IV. SCH (19:44)
[2017-01-19] MEDS: NSS + 20MEQ KCL 1000ML 1,000 ML IV SCH (19:45)
[2017-01-19 21:33] VITALS: BP 158/86; PULSE 76
[2017-01-19] MEDS: VERAPAMIL HCL 120 MG TABCR PO SCH (21:35)
[2017-01-19] MEDS: WARFARIN SOD 5 MG TAB PO SCH (21:35)
[2017-01-19 22:55] VITALS: BP 153/87; PULSE 75; TEMP 36.9; O2SAT 96
[2017-01-19] MEDS ORDERED: NURSING DECISION MEDICATION ORDER SCH (23:30)
[2017-01-20] VITALS (7 sets, daily range): BP systolic 150–185; BP diastolic 71–89; PULSE 73–75; TEMP 36.7–36.8; O2SAT 94–96
[2017-01-20] MEDS: METOCLOPRAMIDE HCL INJ 5 MG/ML 2 ML VIAL IV. SCH ×4 (01:48→19:33)
[2017-01-20] MEDS ORDERED: INSULIN ASPART 100 UNITS/ML 3 ML PEN SC SCH (02:00)
[2017-01-20] MEDS: ONDANSETRON INJ 2 MG/ML 2 ML VIAL IV PRN ×2 (05:09→17:02)
[2017-01-20] MEDS: INSULIN ASPART 100 UNITS/ML 3 ML PEN SC SCH ×3 (06:22→19:57)
[2017-01-20 06:58] LABS: ALB/GLOB RATIO 1.1 (0.9-2); BUN/CREATININE RATIO 17.3 (10-20); CALCIUM 8.7 mg/dl (8.5-10.1); CREATININE 1.1 mg/dl (0.60-1.20); POTASSIUM 3.1 mmol/L (3.5-5.1)
[2017-01-20 07:41] LABS: HEMATOCRIT 26.5 % (37-47); MEAN CELL VOLUME 86.3 fL (80-100); MEAN CORPUSCULAR HEMOGLOBIN 32.8 pg (25-34); MEAN CORPUSCULAR HGB CONC 37.7 g/dl (32-36); MEAN PLATELET VOLUME 8.6 fL (7.4-10.4); PLATELET COUNT 126 K/uL (130-400); RED BLOOD COUNT 3.07 M/uL (4.2-5.4)
[2017-01-20 07:42] LABS: BASO % 0.2 %; BASO ABS # 0.01 K/uL (0-0.2); COMPLETE YES; EOS % 2.2 %; LYMPH % 28.8 %; MONO % 7.8 %
--- NOTE | 2017-01-20 07:54 | Progress Note ---
Progress Note Date of Service Jan 20, 2017. Progress Note Orthopedically no major issues at this point continues to need the support for nausea and vomiting. Hematocrit drifting likely based on my hydration and poor nutrition at this point. No obvious signs of blood loss. Need to be diligent for GI issues. Pain well-managed at this point orthopedically with Lidoderm. Mobilize to tolerance. Fall precautions. Continue management per hospitalist. We'll sign off orthopedically.
[2017-01-20] MEDS: CLOPIDOGREL BISULFATE 75 MG TAB PO SCH (08:50)
[2017-01-20] MEDS: CARVEDILOL 6.25 MG TAB PO SCH ×2 (08:50→21:12)
[2017-01-20] MEDS: CITALOPRAM 20 MG TAB PO SCH (08:50)
[2017-01-20] MEDS: LIDODERM (LIDOCAINE) PATCH 5% TD SCH (08:51)
[2017-01-20] MEDS: LISINOPRIL 5 MG TAB PO SCH (08:51)
[2017-01-20] MEDS: NSS + 20MEQ KCL 1000ML 1,000 ML IV SCH ×2 (08:59→22:34)
[2017-01-20] MEDS: INSULIN DETEMIR FLEXPEN/FLEX TOUCH 100 UNITS/ML 3ML SQ SCH ×2 (09:02→21:11)
--- NOTE | 2017-01-20 14:26 | Pharmacy Progress Note ---
Glycemic: Assessment & Plan Date of Service Jan 20, 2017. Assessment & Plan Current Insulin Regimen: * Basal insulin: Levemir 40 units every 12 hours * Correctional Insulin: Novolog Correction per scale ACHS Goal Range: Low 110 mg/dL - High 140 mg/dL Correction Factor: 20 mg/dL/unit * Prandial insulin: Per carb ratio of 1 unit per 6 grams CHO consumed ASSESSMENT: * Please see 01/19/17 note for full assessment * The patient received 102 units of insulin over the past 24 hours with BSGs ranging from 138 - 228 mg/dl. * Continue to tighten bolus insulin parameters for hyperglycemia throughout the day * Fasting BSG improved today - no changes to Lantus at this time * ADA & AACE recommend a goal blood sugar range 140-180 mg/dl for the majority of critically ill & non-critically ill patients. However, more stringent targets may be selected in individual cases. Will utilize more stringent goal of 110-140mg/dl based on patient age & comorbidities. Additionally, tighter glycemic control is warranted to minimize any complications from back pain. PLAN FOR INPATIENT GLYCEMIC CONTROL: * Continue Lantus 40 units SQ BID due to NPO status * TIGHTENING correction factor to 15 mg/dl/unit * TIGHTENING carb ratio to 1 unit per 5 grams CHO consumed * Continue goal range to Low 110 mg/dL - High 140 mg/dL * A1c ordered * Please note that the plan above was derived based on current level of insulin resistance and hospital stress. These recommendations are appropriate for inpatient admission only. Plan of care upon discharge will need to be reassessed to avoid potential outpatient hypo/hyperglycemia. Thank you.
[2017-01-20] MEDS: ACETAMINOPHEN 325 MG TAB PO PRN (17:02)
[2017-01-20] MEDS ORDERED: NURSING VERBAL MED ORDER ONE (17:30)
--- NOTE | 2017-01-20 18:22 | DIAGNOSTIC IMAGING REPORT ---
AP CHEST WITH ABDOMINAL SERIES CLINICAL HISTORY: Emesis. FINDINGS: An AP chest radiograph is obtained. No prior studies are available for comparison at the time of dictation. Examination is degraded by apical and out of positioning and patient rotation cardiac cardiac pacemaker is in place. The patient is status post midline sternotomy. The heart is enlarged and there is atherosclerotic calcification of the thoracic aorta. The pulmonary vasculature is noncongested. Chronic appearing interstitial thickening is observed. There is no airspace consolidation or large pleural effusion. No pneumothorax is seen. The skeletal structures are osteopenic. Degenerative changes noted throughout the thoracic spine. Supine and decubitus abdominal radiographs are correlated with abdominal CT dated 01/17/2017. There is a nonobstructed abdominal bowel gas pattern. Residual enteric contrast is present in the rectum. No evidence of intraperitoneal free air is seen. There are no abnormal abdominal calcifications. Small renal calculi seen by CT were not apparent on x-ray. The lumbosacral spine and bony pelvis appear intact. IMPRESSION: 1. Cardiomegaly and cardiac pacemaker. There is no radiographic evidence of congestive failure. 2. No airspace consolidation or pleural effusion is seen. 3. Nonobstructed abdominal bowel gas pattern. 4. No evidence of intraperitoneal free air is seen. Electronically signed by: Skyler Mac M.D. 01/20/2017 6:21 PM Dictated Date/Time: 01/20/2017 6:18 PM
--- NOTE | 2017-01-20 19:30 | Hospitalist Progress Note ---
Hospitalist Progress Note Date of Service Jan 20, 2017. Subjective Pt evaluation today including: conversation w/ patient PO Intake: patient with intractable nausea and vomiting Objective Vital Signs Date Time Temp Pulse Resp B/P (MAP) Pulse Ox O2 Delivery O2 Flow Rate FiO2 01/20/17 18:38 184/86 (118) 01/20/17 16:53 185/89 (121) 01/20/17 15:15 36.7 73 18 181/71 (107) 96 Room Air 01/20/17 08:30 Room Air 01/20/17 07:12 36.8 75 16 163/86 (111) 94 Room Air 01/19/17 23:35 Room Air 01/19/17 22:55 36.9 75 18 153/87 (109) 96 Room Air 01/19/17 21:33 76 158/86 (110) Physical Exam General Appearance: no apparent distress ENT: hearing grossly normal Neck: trachea midline Respiratory/Chest: lungs clear Cardiovascular: regular rate, rhythm Abdomen: + tenderness Extremities: normal range of motion Laboratory Results Last 24 Hours Test 01/19/17 20:22 01/19/17 23:50 01/20/17 01:46 01/20/17 05:29 Bedside Glucose 228 mg/dl 176 mg/dl 164 mg/dl White Blood Count 5.90 K/uL Red Blood Count 3.07 M/uL Hemoglobin 9.8 g/dL Hematocrit 26.5 % Mean Corpuscular Volume 86.3 fL Mean Corpuscular Hemoglobin 32.8 pg Mean Corpuscular Hemoglobin Concent 37.7 g/dl Platelet Count 126 K/uL Mean Platelet Volume 8.6 fL Neutrophils (%) (Auto) 61.0 % Lymphocytes (%) (Auto) 28.8 % Monocytes (%) (Auto) 7.8 % Eosinophils (%) (Auto) 2.2 % Basophils (%) (Auto) 0.2 % Neutrophils # (Auto) 3.60 K/uL Lymphocytes # (Auto) 1.70 K/uL Monocytes # (Auto) 0.46 K/uL Eosinophils # (Auto) 0.13 K/uL Basophils # (Auto) 0.01 K/uL RDW Standard Deviation 40.7 fL RDW Coefficient of Variation 12.7 % Immature Granulocyte % (Auto) 0.0 % Immature Granulocyte # (Auto) 0.00 K/uL Sodium Level 122 mmol/L Potassium Level 3.1 mmol/L Chloride Level 85 mmol/L Carbon Dioxide Level 30 mmol/L Anion Gap 7.0 mmol/L Blood Urea Nitrogen 19 mg/dl Creatinine 1.10 mg/dl Est Creatinine Clear Calc Drug Dose 36.2 ml/min Estimated GFR () 56.5 Estimated GFR (Non- 48.7 BUN/Creatinine Ratio 17.3 Random Glucose 138 mg/dl Calcium Level 8.7 mg/dl Total Bilirubin 0.5 mg/dl Aspartate Amino Transf (AST/SGOT) 17 U/L Alanine Aminotransferase (ALT/SGPT) 28 U/L Alkaline Phosphatase 42 U/L Total Protein 6.3 gm/dl Albumin 3.3 gm/dl Globulin 3.0 gm/dl Albumin/Globulin Ratio 1.1 Amylase Level 32 U/L Lipase 150 U/L Chemistry Specimen Hemolysis Test 01/20/17 06:12 01/20/17 12:00 01/20/17 18:34 Bedside Glucose 147 mg/dl 192 mg/dl 185 mg/dl Assessment and Plan (1) Hyponatremia Assessment & Plan: Continue IV hydration with saline CT of the abdomen and pelvis did not reveal obstruction however we will check abdominal films. Continue Reglan and Zofran and will consult gastroenterology in the morning on January 21 (2) Hip pain Assessment & Plan: Improved with lidocaine patch (3) Pacemaker Problem Qualifiers (1) Hip pain: Laterality: left Qualified Codes: M25.552 - Pain in left hip
[2017-01-20] MEDS: HYDROmorphone INJ 0.5 MG/0.5 ML SYR IV PRN (19:33)
[2017-01-20] MEDS: VERAPAMIL HCL 120 MG TABCR PO SCH (21:12)
[2017-01-20] MEDS: WARFARIN SOD 5 MG TAB PO SCH (21:12)
[2017-01-21] MEDS: HYDROmorphone INJ 0.5 MG/0.5 ML SYR IV PRN ×3 (00:05→21:15)
[2017-01-21] MEDS: INSULIN ASPART 100 UNITS/ML 3 ML PEN SC SCH ×5 (00:10→21:06)
[2017-01-21] MEDS: METOCLOPRAMIDE HCL INJ 5 MG/ML 2 ML VIAL IV. SCH ×4 (02:15→21:02)
[2017-01-21] MEDS ORDERED: INSULIN ASPART 100 UNITS/ML 3 ML PEN SC SCH (03:00)
[2017-01-21] MEDS: ONDANSETRON INJ 2 MG/ML 2 ML VIAL IV PRN ×2 (03:25→15:41)
[2017-01-21 07:05] VITALS: BP 164/80; PULSE 75; TEMP 36.7; O2SAT 95
[2017-01-21 07:55] LABS: ESTIMATED AVERAGE GLUCOSE 240 mg/dl; HA1C FLAG Normal (Normal)
[2017-01-21] MEDS: CITALOPRAM 20 MG TAB PO SCH (09:23)
[2017-01-21] MEDS: LISINOPRIL 5 MG TAB PO SCH (09:23)
[2017-01-21] MEDS: CARVEDILOL 6.25 MG TAB PO SCH ×2 (09:23→21:02)
[2017-01-21] MEDS: CLOPIDOGREL BISULFATE 75 MG TAB PO SCH (09:23)
[2017-01-21] MEDS: LIDODERM (LIDOCAINE) PATCH 5% TD SCH (09:24)
[2017-01-21] MEDS: INSULIN DETEMIR FLEXPEN/FLEX TOUCH 100 UNITS/ML 3ML SQ SCH ×2 (09:32→21:03)
--- NOTE | 2017-01-21 09:49 | Pharmacy Progress Note ---
Glycemic Control Progress Note Date of Service Jan 21, 2017. Scope Glycemic Pharmacist consulted for glycemic control to write orders per [facility] inpatient glycemic control protocol. Objective Accuchecks BSG (last 24hrs): Test 01/20/17 12:00 01/20/17 18:34 01/20/17 19:42 01/21/17 00:04 Bedside Glucose 192 mg/dl (70-90) 185 mg/dl (70-90) 205 mg/dl (70-90) 156 mg/dl (70-90) Test 01/21/17 03:05 01/21/17 06:11 Bedside Glucose 141 mg/dl (70-90) 157 mg/dl (70-90) HbA1c: Test 01/20/17 05:29 Hemoglobin A1c 10.0 % (4.5-5.6) H Recent Pertinent Medications The patient is currently receiving: * Basal insulin: Levemir 40 units every 12 hours * Correctional Insulin: Novolog Correction per scale ACHS Goal Range: Low 110 mg/dL - High 140 mg/dL Correction Factor: 15 mg/dL/unit * Prandial insulin: Per carb ratio of 1 unit per 5 grams CHO consumed Outpatient Anti-Diabetic Meds Basal Insulin Bolus Insulin Total daily outpatient insulin dose ~ 154 units/day Assessment & Plan ASSESSMENT: * See progress note from 01/19/17 for more background info, in short: * Pt receiving SQ basal bolus insulin regimen for hyperglycemia secondary to baseline DM. Pt is currently received reduced outpatient insulin dosing secondary to NPO. * Patient is currently receiving an average of 93 units of insulin per day * 80 units of basal insulin * 13 units of prandial/correctional insulin * BSGs ranging 141 - 205 mg/dl over the past 24hrs * Changes needed to insulin regimen: * AM Fasting BSG = 157 mg/dl. This is in slightly above goal range for patient based on inpatient targets and co-morbidities. Therefore Basal insulin needs increased. Pt is currently receiving reduced outpatient dosing for NPO. Dose reduction may have been too much. * Post-prandial BSGs are in range therefore no changes needed to CF/CR. Pt NPO so not really able to evaluate CR. * Total daily dose = 93 units/day. Pt uses 154 units/day as an outpatient. Dosing is reduced for NPO. May need a slightly increase in total daily dose to maintain BSGs < 180mg/dl. Total daily dose is all basal insulin + correctional insulin for hyperglycemia. PLAN FOR INPATIENT GLYCEMIC CONTROL: * Basal insulin: slightly increase * Levemir 44 units SQ BID * Bolus insulin: no change * NovoLog per scale ACHS or Q6hrs while NPO * Goal Range: Low 110 mg/dL - High 140 mg/dL * Correction Factor: 15 mg/dL/unit * Nutritional / Prandial insulin per carb ratio of 1 unit per 5 grams CHO consumed * Please note that the plan above was derived based on current level of insulin resistance and hospital stress. These recommendations are appropriate for inpatient admission only. Plan of care upon discharge will need to be reassessed to avoid potential outpatient hypo/hyperglycemia. Thank you.
--- NOTE | 2017-01-21 10:31 | Clinical Documentation Query ---
ASTON Flowers : CLINICAL DOCUMENTATION QUERY Admission documentation included acute renal failure. Subsequently, documentation of this clinical diagnosis has been discontinued. 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 In your clinical opinion is this patient being managed for: ( ) Acute kidney failure, POA, resolved ( ) Other explanation of clinical findings (Please Explain) ( ) Unable to determine (Please Define) ( ) Need to Discuss ( ) Not Agree The medical record reflects the following clinical findings, treatment, and risk factors. Clinical Indicators: As above Treatment: Labs, IVF, holding of nephrotoxic medications Risk Factors: Poor intake secondary to pain, nausea Please clarify and document your clinical opinion in the progress notes and discharge summary. Terms such as "probable", "suspected", "likely", "questionable", "possible", or "still to be ruled out" are acceptable. IF IN AGREEMENT, YOU MUST DOCUMENT ABOVE DIAGNOSTIC STATEMENT IN DAILY PROGRESS NOTES AND DISCHARGE SUMMARY. This document is not part of the patient's record. Thank You, Aston Sharp, RN [phone]
[2017-01-21] MEDS: NSS + 20MEQ KCL 1000ML 1,000 ML IV SCH (12:01)
[2017-01-21 14:28] VITALS: Ht 154.9 cm; Wt 60.0 kg
--- NOTE | 2017-01-21 14:57 | Progress Note ---
Subjective Date of Service: Jan 21, 2017. Subjective Pt evaluation today including: conversation w/ patient, physical exam, chart review, lab review, review of studies, review of inpatient medication list Pt resting comfortably in bed States pain better controlled No abd pain/chest pain No concerns addressed Wanting to go home Problem List Medical Problems: (1) Acute renal failure (ARF) Status: Acute (2) Hip pain Permanent Comment: back and SI joint pain Status: Acute (3) Pacemaker malfunction Status: Acute (4) TIA (transient ischemic attack) Status: Acute Review of Systems Constitutional: No fever, No chills, No sweats, No weight loss, No weakness ENT: No hearing loss, No unusual epistaxis, No nasal symptoms, No sore throat Respiratory: No cough, No sputum, No wheezing, No shortness of breath, No dyspnea on exertion Cardiac: No chest pain, No orthopnea, No PND, No edema Abdomen: No pain, No nausea, No vomiting, No diarrhea, No constipation Musculoskeletal: + joint pain, No muscle pain, No swelling, No calf pain Female : No dysuria, No urinary frequency, No hematuria, No incontinence Neurologic: No memory loss, No paralysis, No weakness, No numbness/tingling Psychiatric: No depression symptoms, No anhedonism, No anxiety, No insomnia Heme: No abnormal bleeding/bruising, No clotting problems Endo: No fatigue, No excessive thirst, No excessive urination Skin: No rash, No itch Objective Vital Signs Date Time Temp Pulse Resp B/P (MAP) Pulse Ox O2 Delivery O2 Flow Rate FiO2 01/21/17 08:30 Room Air 01/21/17 07:05 36.7 75 16 164/80 (108) 95 Room Air 01/21/17 00:10 Room Air 01/20/17 23:10 36.8 75 14 150/81 (104) 94 Room Air 01/20/17 21:07 75 164/89 (114) 01/20/17 19:58 75 168/83 (111) 01/20/17 18:38 184/86 (118) 01/20/17 16:53 185/89 (121) 01/20/17 15:20 Room Air 01/20/17 15:15 36.7 73 18 181/71 (107) 96 Room Air Physical Exam General Appearance: WD/WN, no apparent distress Eyes: normal inspection, PERRL, EOMI, sclerae normal Neck: supple, no adenopathy, thyroid normal, no JVD Respiratory/Chest: chest non-tender, lungs clear, normal breath sounds, no respiratory distress Cardiovascular: regular rate, rhythm, no edema, no gallop, no JVD Abdomen: normal bowel sounds, non tender, soft, no organomegaly Extremities: normal range of motion, non-tender, normal inspection, no pedal edema Neurologic/Psychiatric: no motor/sensory deficits, alert, normal mood/affect, oriented x 3 Laboratory Results Last 24 Hours Test 01/20/17 18:34 01/20/17 19:42 01/21/17 00:04 01/21/17 03:05 Bedside Glucose 185 mg/dl 205 mg/dl 156 mg/dl 141 mg/dl Test 01/21/17 06:11 01/21/17 12:10 01/21/17 14:45 Bedside Glucose 157 mg/dl 173 mg/dl Assessment and Plan (1) Hyponatremia (2) Hip pain (3) Pacemaker 76 y/o F Hx CAD - CABG 12/28, IDDM, HTN, AF, atrial pacer. Pt presents with a primary compliant of L hip pain. She states that this has been progressive over the course of 2 days and she now has difficulty walking. She denies trauma to the area. She denies CP, SOB, N/V, diarrhea, dysuria or fevers. Imaging did not reveal any acute fractures. A CT abdomen/pelvis was however suspicious for a soft tissue mass in the rectum. She did not have any related symptoms. Hip pain - having difficulty with ambulation - no evidence of fracture - orthopedics consulted, no surgical intervention required, pain controlled on lidoderm patch in addition to dilaudid Hyponatremia - 122 yesterday, awaiting labs for today, worsened with IVF, will check urine lytes to rule out SIADH, pt asymptomatic at this time. Chronic component as well but pt far from baseline of low 130s ARF - likely prerenal in nature - Improving, hold IVF likely secondary to SIADH Mass seen in rectum - surgery consulted - no related symptoms at present. HTN - cont, Coreg - can provide Hydralazine PRN if needed CAD - post CABG 12/28 - cont Coreg, statin, ASA DM - Hg A1c 10, cont levemir 44 units BID in addition to SSI, glycemic control consult appreciated Problem Qualifiers (1) Hip pain: Laterality: left Qualified Codes: M25.552 - Pain in left hip
[2017-01-21 15:10] VITALS: BP 176/83; PULSE 75; TEMP 36.8; O2SAT 96
[2017-01-21 15:56] LABS: BUN/CREATININE RATIO 16.3 (10-20); CALCIUM 8.6 mg/dl (8.5-10.1); POTASSIUM 3.1 mmol/L (3.5-5.1)
[2017-01-21] MEDS ORDERED: PROMETHAZINE HCL INJ 12.5 MG in SODIUM CHLORIDE 0.9% 50ML 50 ML IV PRN (16:00)
[2017-01-21] MEDS ORDERED: POTASSIUM CHLORIDE 10 MEQ TABCR PO ONE (16:30)
[2017-01-21] MEDS ORDERED: POTASSIUM CHLORIDE 20 MEQ TABCR PO ONE (16:30)
[2017-01-21] MEDS ORDERED: INSULIN DETEMIR FLEXPEN/FLEX TOUCH 100 UNITS/ML 3ML SQ SCH (21:00)
[2017-01-21] MEDS: WARFARIN SOD 5 MG TAB PO SCH (21:02)
[2017-01-21] MEDS: VERAPAMIL HCL 120 MG TABCR PO SCH (21:02)
[2017-01-21 22:15] VITALS: BP 184/92
[2017-01-21 22:55] VITALS: BP 194/97; PULSE 75; TEMP 36.9; O2SAT 97
[2017-01-21] MEDS ORDERED: NURSING VERBAL MED ORDER ONE (23:00)
[2017-01-21 23:48] VITALS: BP 183/101
[2017-01-21 23:51] VITALS: BP 184/93
[2017-01-22] VITALS (7 sets, daily range): BP systolic 122–170; BP diastolic 72–91; PULSE 73–78; TEMP 36.5–36.9; O2SAT 94–97
[2017-01-22] MEDS ORDERED: NURSING VERBAL MED ORDER ONE (00:15)
[2017-01-22] MEDS ORDERED: HydrALAZINE HCL 20 MG/ML VIAL IV. SCH (00:30)
[2017-01-22] MEDS: METOCLOPRAMIDE HCL INJ 5 MG/ML 2 ML VIAL IV. SCH ×4 (01:17→21:21)
[2017-01-22] MEDS: ONDANSETRON INJ 2 MG/ML 2 ML VIAL IV PRN (05:16)
[2017-01-22] MEDS: INSULIN DETEMIR FLEXPEN/FLEX TOUCH 100 UNITS/ML 3ML SQ SCH (05:24)
[2017-01-22 07:06] LABS: BUN/CREATININE RATIO 18.6 (10-20); CALCIUM 8.5 mg/dl (8.5-10.1); CREATININE 0.97 mg/dl (0.60-1.20); POTASSIUM 2.9 mmol/L (3.5-5.1)
[2017-01-22] MEDS ORDERED: POTASSIUM CHLR 20 MEQ / WTR 20 MEQ in PREMIXED WATER 100 ML IV STA (07:24)
[2017-01-22] MEDS: POTASSIUM CHLR 10MEQ / WTR IV SCH ×2 (08:04→09:26)
[2017-01-22] MEDS: CITALOPRAM 20 MG TAB PO SCH (08:28)
[2017-01-22] MEDS: CARVEDILOL 6.25 MG TAB PO SCH ×2 (08:29→21:23)
[2017-01-22] MEDS: POTASSIUM CHLORIDE 20 MEQ TABCR PO SCH ×2 (08:31→21:22)
[2017-01-22] MEDS: CLOPIDOGREL BISULFATE 75 MG TAB PO SCH (08:32)
[2017-01-22] MEDS: LISINOPRIL 5 MG TAB PO SCH (08:35)
[2017-01-22] MEDS: LIDODERM (LIDOCAINE) PATCH 5% TD SCH (08:36)
[2017-01-22] MEDS: TOLVAPTAN TAB 15 MG TAB PO SCH (09:06)
[2017-01-22] MEDS: INSULIN ASPART 100 UNITS/ML 3 ML PEN SC SCH ×4 (09:21→21:18)
--- NOTE | 2017-01-22 11:06 | Nephrology Consultation ---
Nephrology Consultation Date & Providers Date of Consultation: Jan 22, 2017. Primary Care Provider: Shankar Payne M.D. Referring Provider: Reason for Consultation Hyponatremia History of Present Illness Mrs. Garcia is a 76 year old white female who is seen at the request of Dr. Galindo for evaluation of hyponatremia. Medical records in the hospital EMR were reviewed and are summarized as follows: Mrs. Garcia has had stable stage III CKD monitored by Dr. Gregg ([place]). Baseline creatinine has been 1.0 w / EGFR 56 cc/min. She has also had longstanding arterial HTN. Her blood pressure has been controlled w/ a thiazide diuretic but she has had chronic hyponatremia w/ serum sodium 125 - 130 dating back to 2008. Mrs. Garcia's medical history is also significant for depression, hyperlipidemia, IDDM, chronic atrial fibrillation and ASCVD s/p CABG 2015. The patient reports a history of osteoarthritis and chronic low back pain. She was admitted to the hospital 01/16/17 with low back/L flank pain radiating down her back. X-ray studies were negative for vertebral compression or hip fracture. Noncontrast abdominal CT revealed a nonobstructing L lower pole renal calculus. Patient reports mild improvement in her discomfort following physical therapy. Since admission to the hospital Mrs. Garcia has been hydrated w/ 0.9 NS. Her serum sodium has progressively dropped from 125 to 114 mmol/L. Urine osmolality has been inappropriately elevated at 245. The patient currently denies [place], visual change or weakness. Primary service has stopped thiazide diuretic, stopped IVF and administered 15 mg Tolvaptan at 9am this morning. Past Medical/Surgical History Medical: # Chronic hyponatremia w/ serum sodium 125 - 130 mmol/L dating back to 2008 in hospital EMR # HTN # IDDM # Hyperlipidemia # Chronic atrial fibrillation # ASCVD s/p CABG 2016 # OA Surgical: # Atrial pacemaker # CABG Allergies Coded Allergies: Amoxicillin (Unverified Allergy, Intermediate, ITCHING/, 01/17/17) Morphine (Verified Adverse Reaction, Mild, NOSE ITCHING , 01/11/16) Nifedipine (Verified Adverse Reaction, Mild, SHAKING, 01/11/16) Inpatient Medications Current Inpatient Medications Medications (Trade) Dose Ordered Sig/Estephanie Route Start Time Stop Time Status Last Admin Dose Admin Carvedilol (Coreg Tab) 6.25 mg BID PO 01/17/17 21:00 02/16/17 20:59 01/22/17 08:29 6.25 MG Citalopram Hydrobromide (celeXA TAB) 20 mg QAM PO 01/18/17 09:00 02/17/17 08:59 01/22/17 08:28 20 MG Clopidogrel Bisulfate (plAVix TAB) 75 mg QAM PO 01/18/17 09:00 02/17/17 08:59 01/22/17 08:32 75 MG Docusate Sodium (coLACE CAP) 100 mg BID PRN PO 01/17/17 19:45 02/16/17 19:44 Lisinopril (Zestril Tab) 5 mg QAM PO 01/18/17 09:00 02/17/17 08:59 01/22/17 08:35 5 MG Verapamil HCl (Calan-Sr Tab) 120 mg HS PO 01/17/17 21:00 02/16/17 20:59 01/21/17 21:02 120 MG Warfarin Sodium (Coumadin Tab) 5 mg HS PO 01/17/17 21:00 02/16/17 20:59 01/21/17 21:02 5 MG Tramadol HCl (Ultram Tab) 50 mg Q4H PRN PO 01/17/17 20:00 02/16/17 19:59 01/18/17 17:45 50 MG Acetaminophen (Tylenol Tab) 650 mg Q4H PRN PO 01/17/17 20:00 02/16/17 19:59 01/20/17 17:02 650 MG Al Hydrox/Mg Hydrox/Simethicone (Maalox Max Susp) 15 ml Q4H PRN PO 01/17/17 20:00 02/16/17 19:59 01/19/17 11:09 15 ML Magnesium Hydroxide (Milk Of Magnesia Susp) 30 ml Q6H PRN PO 01/17/17 20:00 02/16/17 19:59 Polyethylene (Miralax Powder Packet) 17 gm DAILY PRN PO 01/17/17 22:00 02/16/17 21:59 Ondansetron HCl (Zofran Inj) 4 mg Q6H PRN IV 01/17/17 20:00 02/16/17 19:59 01/22/17 05:16 4 MG Glucose (Glucose 40% Gel) 15-30 GRAMS 15 GRAMS... UD PRN PO 01/17/17 22:00 02/16/17 21:59 Glucose (Glucose Chew Tab) 4-8 Tablets 4 Tabl... UD PRN PO 01/17/17 22:00 02/16/17 21:59 Dextrose (Dextrose 50% 50ML Syringe) 25-50ML OF 50% DW IV FOR... UD PRN IV 01/17/17 22:00 02/16/17 21:59 Glucagon (Glucagon Inj) 1 mg UD PRN SQ 01/17/17 22:00 02/16/17 21:59 Miscellaneous (Iv Fluids Completed) 1 ea PRN PRN N/A 01/17/17 22:15 01/17/18 22:14 Lidocaine (Lidoderm Patch 5%) 1 patch QAM TD 01/18/17 20:00 02/17/17 19:59 01/22/17 08:36 1 PATCH Miscellaneous (Remove Lidoderm Patch) 1 ea DAILY@21 N/A 01/19/17 06:00 02/18/17 05:59 01/21/17 21:05 1 EA Miscellaneous Information (Consult Glycemic Management Pharmacy) 1 ea UD PRN N/A 01/19/17 17:55 02/18/17 17:54 Metoclopramide HCl (Reglan Inj) 10 mg Q6H IV. 01/19/17 20:00 02/18/17 18:29 01/22/17 07:37 10 MG Hydromorphone HCl (Dilaudid Inj) 0.5 mg Q4H PRN IV 01/20/17 18:00 02/03/17 17:59 01/21/17 21:15 0.5 MG Promethazine HCl 12.5 mg/Sodium Chloride 50.5 ml @ 204 mls/hr Q6H PRN IV 01/21/17 16:00 02/20/17 15:59 Insulin Aspart (novoLOG ASPART) SLIDING SCALE G... ACHS SC 01/22/17 08:00 02/21/17 07:59 01/22/17 09:21 6 UNITS Tolvaptan (Samsca Tab) 15 mg QAM PO 01/22/17 09:00 8/10/17 08:59 01/22/17 09:06 15 MG Potassium Chloride (Klor-Con Tab) 40 meq BID PO 01/22/17 09:00 02/21/17 08:59 01/22/17 08:31 40 MEQ Insulin Detemir (Levemir Flexpen/ FlexTouch) 44 units BID SQ 01/22/17 21:00 02/21/17 20:59 Family History Hypertension Stroke Negative for CKD / ESRD Social History Smoking Status: Former Smoker Smokeless Tobacco Use: No Alcohol Use: none Drug Use: none Marital Status: Occupation: retired . Retired. Remote h/o tobacco use. Review of Systems Constitutional: No fever Respiratory: No shortness of breath Cardiovascular: No chest pain Abdomen: No pain, No nausea, No vomiting Genitourinary - Female: No dysuria Neurologic: No memory loss, No weakness A complete review of systems was performed. Pertinent positives are noted above. All other systems are negative. Physical Exam Date Time Temp Pulse Resp B/P (MAP) Pulse Ox O2 Delivery O2 Flow Rate FiO2 01/22/17 07:57 96 Room Air 01/22/17 07:31 36.6 78 14 158/86 (110) 96 Room Air 01/22/17 07:20 Room Air 01/22/17 02:54 152/83 (106) 01/22/17 00:42 170/89 (116) 01/21/17 23:51 184/93 (123) 01/21/17 23:48 183/101 (128) 01/21/17 23:30 Room Air 01/21/17 22:55 36.9 75 18 194/97 (129) 97 Room Air 01/21/17 22:15 184/92 (122) 01/21/17 16:30 Room Air 01/21/17 15:10 36.8 75 18 176/83 (114) 96 Room Air General Appearance: no apparent distress Head: normocephalic, atraumatic Eyes: PERRL, EOMI Neck: no adenopathy Respiratory/Chest: lungs clear, no respiratory distress Cardiovascular: regular rate, rhythm Abdomen/GI: normal bowel sounds, non tender, soft Back: no CVA tenderness Extremities/Musculoskelatal: no calf tenderness, no pedal edema Neurologic/Psych: alert, oriented x 3 Laboratory Results Last 24 Hours Test 01/21/17 12:10 01/21/17 15:08 01/21/17 18:02 01/21/17 20:58 Bedside Glucose 173 mg/dl 125 mg/dl 161 mg/dl Sodium Level 116 mmol/L Potassium Level 3.1 mmol/L Chloride Level 81 mmol/L Carbon Dioxide Level 24 mmol/L Anion Gap 11.0 mmol/L Blood Urea Nitrogen 16 mg/dl Creatinine 1.00 mg/dl Est Creatinine Clear Calc Drug Dose 39.8 ml/min Estimated GFR () 63.4 Estimated GFR (Non- 54.7 BUN/Creatinine Ratio 16.3 Random Glucose 132 mg/dl Calcium Level 8.6 mg/dl Test 01/22/17 05:38 01/22/17 07:52 01/22/17 10:26 01/22/17 10:28 Sodium Level 114 mmol/L Potassium Level 2.9 mmol/L Chloride Level 79 mmol/L Carbon Dioxide Level 25 mmol/L Anion Gap 10.0 mmol/L Blood Urea Nitrogen 18 mg/dl Creatinine 0.97 mg/dl Est Creatinine Clear Calc Drug Dose 41.0 ml/min Estimated GFR () 65.8 Estimated GFR (Non- 56.7 BUN/Creatinine Ratio 18.6 Random Glucose 116 mg/dl Calcium Level 8.5 mg/dl Bedside Glucose 132 mg/dl Impression (1) Hypertension (2) Hyponatremia (3) Hip pain (4) Acute renal failure (ARF) Mrs. Garcia was admitted for evaluation of low back, L leg pain and KELLY. She has chronic hyponatremia w/ serum sodium 125 - 130 mmol/l while on thiazide diuretic. Kidney function has recovered with IV hydration but serum sodium has progressively dropped to 114 mmol/L. Uosm is inappropriately elevated at 245. IVF and thiazide diuretic have been stopped. Patient has been given one dose of Tolvaptan this morning. She is asymptomatic. She has no headache, visual change or weakness. Recommendations HYPONATREMIA: -- Likely due to multiple factors including thiazide diuretic, pain, SSRI. -- Uosm is inappropriately elevated -- Agree w/ stopping thiazide diuretic and IVF -- Agree w/ administering one dose of Tolvaptan. Will monitor serial PRP -- Will recheck serum and urine osmolality in am -- 01/20 CXR films reviewed: negative for mass / nodule. No symptoms such as weight loss, night sweats, hemoptysis to suggest need for chest CT HYPOKALEMIA: -- Mg is mildly low. Will provide po Mag-ox -- Agree w/ IV KCl supplementation HYPERTENSION: -- Blood pressure is mildly elevated -- Once serum potassium is corrected will consider low dose loop diuretic vs. titration of Verapamil or Lisinopril -- Avoid thiazide diuretics OTHER: -- Continue physical therapy for strengthening
[2017-01-22 11:34] LABS: BUN/CREATININE RATIO 19.5 (10-20); CALCIUM 8.4 mg/dl (8.5-10.1); CREATININE 0.99 mg/dl (0.60-1.20); POTASSIUM 3.4 mmol/L (3.5-5.1)
[2017-01-22] MEDS: ACETAMINOPHEN 325 MG TAB PO PRN ×2 (13:18→21:21)
--- NOTE | 2017-01-22 14:24 | Progress Note ---
Subjective Date of Service: Jan 22, 2017. Subjective Pt evaluation today including: conversation w/ patient, physical exam, chart review, lab review, review of studies, review of inpatient medication list States having nausea this AM No acute events overnight Problem List Medical Problems: (1) Acute renal failure (ARF) Status: Acute (2) Hip pain Permanent Comment: back and SI joint pain Status: Acute (3) Pacemaker malfunction Status: Acute (4) TIA (transient ischemic attack) Status: Acute Review of Systems Constitutional: No fever, No chills, No sweats, No weight loss, No weakness ENT: No hearing loss, No unusual epistaxis, No nasal symptoms, No sore throat Respiratory: No cough, No sputum, No wheezing, No shortness of breath, No dyspnea on exertion Cardiac: No chest pain, No orthopnea, No PND, No edema, No claudication Abdomen: + nausea, No pain, No vomiting, No diarrhea, No constipation Musculoskeletal: No joint pain, No muscle pain, No swelling, No calf pain Female : No dysuria, No urinary frequency, No hematuria, No incontinence Neurologic: No memory loss, No paralysis, No weakness, No numbness/tingling Psychiatric: No depression symptoms, No anhedonism, No anxiety, No insomnia Skin: No rash, No itch Objective Vital Signs Date Time Temp Pulse Resp B/P (MAP) Pulse Ox O2 Delivery O2 Flow Rate FiO2 01/22/17 12:10 36.5 74 14 154/79 (104) 97 Room Air 01/22/17 07:57 96 Room Air 01/22/17 07:31 36.6 78 14 158/86 (110) 96 Room Air 01/22/17 07:20 Room Air 01/22/17 02:54 152/83 (106) 01/22/17 00:42 170/89 (116) 01/21/17 23:51 184/93 (123) 01/21/17 23:48 183/101 (128) 01/21/17 23:30 Room Air 01/21/17 22:55 36.9 75 18 194/97 (129) 97 Room Air 01/21/17 22:15 184/92 (122) 01/21/17 16:30 Room Air 01/21/17 15:10 36.8 75 18 176/83 (114) 96 Room Air Physical Exam General Appearance: WD/WN, + mild distress Eyes: normal inspection, PERRL, EOMI, sclerae normal Neck: supple, no adenopathy, thyroid normal, no JVD Respiratory/Chest: chest non-tender, lungs clear, normal breath sounds, no respiratory distress Cardiovascular: regular rate, rhythm, no edema, no gallop, no JVD Abdomen: normal bowel sounds, non tender, soft, no organomegaly Extremities: normal range of motion, non-tender, normal inspection, no pedal edema Neurologic/Psychiatric: no motor/sensory deficits, alert, normal mood/affect, oriented x 3 Laboratory Results Last 24 Hours Test 01/21/17 15:08 01/21/17 18:02 01/21/17 20:58 01/22/17 00:00 Sodium Level 116 mmol/L Potassium Level 3.1 mmol/L Chloride Level 81 mmol/L Carbon Dioxide Level 24 mmol/L Anion Gap 11.0 mmol/L Blood Urea Nitrogen 16 mg/dl Creatinine 1.00 mg/dl Est Creatinine Clear Calc Drug Dose 39.8 ml/min Estimated GFR () 63.4 Estimated GFR (Non- 54.7 BUN/Creatinine Ratio 16.3 Random Glucose 132 mg/dl Calcium Level 8.6 mg/dl Bedside Glucose 125 mg/dl 161 mg/dl Urine Osmolality 407 mOms/kg Urine Random Sodium 82 mEq/L Urine Random Potassium 36.2 mEq/L Test 01/22/17 05:38 01/22/17 07:52 01/22/17 10:37 01/22/17 11:59 Sodium Level 114 mmol/L 114 mmol/L Potassium Level 2.9 mmol/L 3.4 mmol/L Chloride Level 79 mmol/L 80 mmol/L Carbon Dioxide Level 25 mmol/L 27 mmol/L Anion Gap 10.0 mmol/L 7.0 mmol/L Blood Urea Nitrogen 18 mg/dl 19 mg/dl Creatinine 0.97 mg/dl 0.99 mg/dl Est Creatinine Clear Calc Drug Dose 41.0 ml/min 40.2 ml/min Estimated GFR () 65.8 64.2 Estimated GFR (Non- 56.7 55.4 BUN/Creatinine Ratio 18.6 19.5 Random Glucose 116 mg/dl 151 mg/dl Calcium Level 8.5 mg/dl 8.4 mg/dl Bedside Glucose 132 mg/dl Osmolality 252 mOsm/kg Thyroid Stimulating Hormone (TSH) 1.310 uIu/ml Test 01/22/17 14:07 Assessment and Plan (1) Hyponatremia (2) Hip pain (3) Pacemaker 76 y/o F Hx CAD - CABG 12/28, IDDM, HTN, AF, atrial pacer. Pt presents with a primary compliant of L hip pain. She states that this has been progressive over the course of 2 days and she now has difficulty walking. She denies trauma to the area. She denies CP, SOB, N/V, diarrhea, dysuria or fevers. Imaging did not reveal any acute fractures. A CT abdomen/pelvis was however suspicious for a soft tissue mass in the rectum. She did not have any related symptoms. Hip pain - having difficulty with ambulation - no evidence of fracture - orthopedics consulted, no surgical intervention required, pain controlled on lidoderm patch in addition to dilaudid Symptomatic hyponatremia - IV hydration dced on 01/21 due to worsening hyponatremia 114 this AM Repeat serum Na q 4hrs Pt also reports worsening N/V Nephrology consulted Samsca 15 mg PO given x 1 Fluid restriction of 1000 ml daily WIll also obtain urine ans serum OSM and urine Na, K ARF - likely prerenal in nature - Improving, hold IVF likely secondary to SIADH Mass seen in rectum - surgery consulted - no related symptoms at present. No surgical intervention required HTN - Stable, cont, Coreg - can provide Hydralazine PRN if needed CAD - post CABG 12/28 - cont Coreg, statin, ASA DM - Hg A1c 10, cont levemir 44 units BID in addition to SSI, glycemic control consult appreciated Problem Qualifiers (1) Hip pain: Laterality: left Qualified Codes: M25.552 - Pain in left hip
[2017-01-22 16:57] LABS: CREATININE 1.1 mg/dl (0.60-1.20); POTASSIUM 3.8 mmol/L (3.5-5.1)
[2017-01-22] MEDS: TRAMADOL HCL 50 MG TAB PO PRN (18:36)
[2017-01-22] MEDS ORDERED: INSULIN DETEMIR FLEXPEN/FLEX TOUCH 100 UNITS/ML 3ML SQ SCH (21:00)
[2017-01-22] MEDS: VERAPAMIL HCL 120 MG TABCR PO SCH (21:21)
[2017-01-22] MEDS: WARFARIN SOD 5 MG TAB PO SCH (21:23)
[2017-01-23] MEDS: METOCLOPRAMIDE HCL INJ 5 MG/ML 2 ML VIAL IV. SCH ×4 (01:50→21:17)
[2017-01-23 05:06] LABS: BUN/CREATININE RATIO 20.6 (10-20); CALCIUM 9.6 mg/dl (8.5-10.1); CREATININE 1.3 mg/dl (0.60-1.20); POTASSIUM 3.8 mmol/L (3.5-5.1)
[2017-01-23 07:26] VITALS: BP 156/90; PULSE 72; TEMP 36.8; O2SAT 97; O2SAT 98
[2017-01-23 07:38] VITALS: O2SAT 98
--- NOTE | 2017-01-23 08:37 | Nephrology Progress Note ---
Nephrology Progress Note Date of Service Jan 23, 2017. Chief Complaint Hyponatremia Subjective Mrs. Garcia was seen & examined in her hospital room this morning. She complains of weakness and continued low back discomfort. She denies [place] or nausea. Review of Systems Constitutional: No fever Cardiovascular: No chest pain Respiratory: No dyspnea at rest Abdomen: No pain, No nausea Extremities: No leg edema A complete review of systems was performed. Pertinent positives are noted above. All other systems are negative. Vital Signs Last 8 Hrs Date Time Temp Pulse Resp B/P (MAP) Pulse Ox O2 Delivery O2 Flow Rate FiO2 01/23/17 07:38 98 Room Air 01/23/17 07:26 36.8 72 14 156/90 (112) 98 Room Air Last Recorded Weight Weight (Kilograms): 60.000 Physical Exam General Appearance: no apparent distress Head: atraumatic Eyes: PERRL Neck: no adenopathy Respiratory/Chest: lungs clear Cardiovascular: regular rate, rhythm Back: + pertinent finding (mild low back discomfort) Abdomen/GI: normal bowel sounds, non tender, soft Extremities/Musculoskelatal: no calf tenderness, no pedal edema Neurologic/Psych: alert Family History Hypertension Stroke Negative for CKD / ESRD Social History Smokeless Tobacco Use: No Alcohol Use: none Drug Use: none Marital Status: Occupation: retired . Retired. Remote h/o tobacco use. Laboratory Results Past 24 Hours 01/22/17 10:37 01/22/17 16:18 01/22/17 20:24 01/22/17 23:46 01/23/17 04:19 01/23/17 07:38 Test 01/22/17 10:37 01/22/17 11:55 01/22/17 11:59 01/22/17 16:18 Anion Gap 7.0 mmol/L (3-11) 9.0 mmol/L (3-11) Est Creatinine Clear Calc Drug Dose 40.2 ml/min 36.2 ml/min Estimated GFR () 64.2 56.5 Estimated GFR (Non- 55.4 48.7 BUN/Creatinine Ratio 19.5 (10-20) 20.0 (10-20) Osmolality 252 mOsm/kg (280-300) Calcium Level 8.4 mg/dl (8.5-10.1) 9.0 mg/dl (8.5-10.1) Bedside Glucose 161 mg/dl (70-90) Thyroid Stimulating Hormone (TSH) 1.310 uIu/ml (0.300-4.500) Test 01/22/17 16:55 01/22/17 20:32 01/23/17 04:19 01/23/17 08:00 Bedside Glucose 131 mg/dl (70-90) 142 mg/dl (70-90) 112 mg/dl (70-90) Anion Gap 10.0 mmol/L (3-11) Est Creatinine Clear Calc Drug Dose 30.6 ml/min Estimated GFR () 46.2 Estimated GFR (Non- 39.8 BUN/Creatinine Ratio 20.6 (10-20) Osmolality 265 mOsm/kg (280-300) Calcium Level 9.6 mg/dl (8.5-10.1) Allergies Coded Allergies: Amoxicillin (Unverified Allergy, Intermediate, ITCHING/, 01/17/17) Morphine (Verified Adverse Reaction, Mild, NOSE ITCHING , 01/11/16) Nifedipine (Verified Adverse Reaction, Mild, SHAKING, 01/11/16) Medications Current Inpatient Medications Medications (Trade) Dose Ordered Sig/Estephanie Route Start Time Stop Time Status Last Admin Dose Admin Carvedilol (Coreg Tab) 6.25 mg BID PO 01/17/17 21:00 02/16/17 20:59 01/22/17 21:23 6.25 MG Citalopram Hydrobromide (celeXA TAB) 20 mg QAM PO 01/18/17 09:00 02/17/17 08:59 01/22/17 08:28 20 MG Clopidogrel Bisulfate (plAVix TAB) 75 mg QAM PO 01/18/17 09:00 02/17/17 08:59 01/22/17 08:32 75 MG Docusate Sodium (coLACE CAP) 100 mg BID PRN PO 01/17/17 19:45 02/16/17 19:44 Lisinopril (Zestril Tab) 5 mg QAM PO 01/18/17 09:00 02/17/17 08:59 01/22/17 08:35 5 MG Verapamil HCl (Calan-Sr Tab) 120 mg HS PO 01/17/17 21:00 02/16/17 20:59 01/22/17 21:21 120 MG Warfarin Sodium (Coumadin Tab) 5 mg HS PO 01/17/17 21:00 02/16/17 20:59 01/22/17 21:23 5 MG Tramadol HCl (Ultram Tab) 50 mg Q4H PRN PO 01/17/17 20:00 02/16/17 19:59 01/22/17 18:36 50 MG Acetaminophen (Tylenol Tab) 650 mg Q4H PRN PO 01/17/17 20:00 02/16/17 19:59 01/22/17 21:21 650 MG Al Hydrox/Mg Hydrox/Simethicone (Maalox Max Susp) 15 ml Q4H PRN PO 01/17/17 20:00 02/16/17 19:59 01/19/17 11:09 15 ML Magnesium Hydroxide (Milk Of Magnesia Susp) 30 ml Q6H PRN PO 01/17/17 20:00 02/16/17 19:59 Polyethylene (Miralax Powder Packet) 17 gm DAILY PRN PO 01/17/17 22:00 02/16/17 21:59 Ondansetron HCl (Zofran Inj) 4 mg Q6H PRN IV 01/17/17 20:00 02/16/17 19:59 01/22/17 05:16 4 MG Glucose (Glucose 40% Gel) 15-30 GRAMS 15 GRAMS... UD PRN PO 01/17/17 22:00 02/16/17 21:59 Glucose (Glucose Chew Tab) 4-8 Tablets 4 Tabl... UD PRN PO 01/17/17 22:00 02/16/17 21:59 Dextrose (Dextrose 50% 50ML Syringe) 25-50ML OF 50% DW IV FOR... UD PRN IV 01/17/17 22:00 02/16/17 21:59 Glucagon (Glucagon Inj) 1 mg UD PRN SQ 01/17/17 22:00 02/16/17 21:59 Miscellaneous (Iv Fluids Completed) 1 ea PRN PRN N/A 01/17/17 22:15 01/17/18 22:14 Lidocaine (Lidoderm Patch 5%) 1 patch QAM TD 01/18/17 20:00 02/17/17 19:59 01/22/17 08:36 1 PATCH Miscellaneous (Remove Lidoderm Patch) 1 ea DAILY@21 N/A 01/19/17 06:00 02/18/17 05:59 01/22/17 21:23 1 EA Miscellaneous Information (Consult Glycemic Management Pharmacy) 1 ea UD PRN N/A 01/19/17 17:55 02/18/17 17:54 Metoclopramide HCl (Reglan Inj) 10 mg Q6H IV. 01/19/17 20:00 02/18/17 18:29 01/23/17 08:17 10 MG Hydromorphone HCl (Dilaudid Inj) 0.5 mg Q4H PRN IV 01/20/17 18:00 02/03/17 17:59 01/21/17 21:15 0.5 MG Promethazine HCl 12.5 mg/Sodium Chloride 50.5 ml @ 204 mls/hr Q6H PRN IV 01/21/17 16:00 02/20/17 15:59 Insulin Aspart (novoLOG ASPART) SLIDING SCALE G... ACHS SC 01/22/17 08:00 02/21/17 07:59 01/22/17 21:18 1 UNITS Tolvaptan (Samsca Tab) 15 mg QAM PO 01/22/17 09:00 02/21/17 08:59 01/22/17 09:06 15 MG Potassium Chloride (Klor-Con Tab) 40 meq BID PO 01/22/17 09:00 02/21/17 08:59 01/22/17 21:22 40 MEQ Insulin Detemir (Levemir Flexpen/ FlexTouch) 40 units BID SQ 01/23/17 09:00 02/22/17 08:59 Impression (1) Hypertension (2) Hyponatremia (3) Hip pain (4) Acute renal failure (ARF) Mrs. Garcia was admitted for evaluation of low back, L leg pain and KELLY. She has chronic hyponatremia w/ serum sodium 125 - 130 mmol/l while on thiazide diuretic. Kidney function has recovered with IV hydration but serum sodium has progressively dropped to 114 mmol/L. Uosm is inappropriately elevated at 245. IVF and thiazide diuretic have been stopped. Patient has been given one dose of Tolvaptan this morning. She is asymptomatic. She has no headache, visual change or weakness. Recommendations HYPONATREMIA: -- Likely due to multiple factors including thiazide diuretic, pain, SSRI. -- Uosm is inappropriately elevated -- Agree w/ stopping thiazide diuretic and IVF -- Patient is scheduled for 2nd dose Tolvaptan this morning. Will stop following this dose and attempt to manage w/ fluid restriction and NaCl administration -- Will recheck serum and urine osmolality in am HYPOKALEMIA: -- Corrected. Will monitor HYPERTENSION: -- Blood pressure improved. Will monitor -- Avoid thiazide diuretics OTHER: -- Continue physical therapy for strengthening
[2017-01-23] MEDS: CITALOPRAM 20 MG TAB PO SCH (08:38)
[2017-01-23] MEDS: CARVEDILOL 6.25 MG TAB PO SCH ×2 (08:39→21:20)
[2017-01-23] MEDS: CLOPIDOGREL BISULFATE 75 MG TAB PO SCH (08:42)
[2017-01-23] MEDS: POTASSIUM CHLORIDE 20 MEQ TABCR PO SCH ×2 (08:42→21:19)
[2017-01-23] MEDS: LISINOPRIL 5 MG TAB PO SCH (08:43)
[2017-01-23] MEDS: TOLVAPTAN TAB 15 MG TAB PO SCH (08:43)
[2017-01-23] MEDS: LIDODERM (LIDOCAINE) PATCH 5% TD SCH (08:46)
[2017-01-23] MEDS ORDERED: INSULIN DETEMIR FLEXPEN/FLEX TOUCH 100 UNITS/ML 3ML SQ SCH ×2 (09:00→21:00)
[2017-01-23] MEDS: INSULIN ASPART 100 UNITS/ML 3 ML PEN SC SCH ×4 (09:09→21:18)
[2017-01-23] MEDS: ACETAMINOPHEN 325 MG TAB PO PRN (09:20)
--- NOTE | 2017-01-23 13:17 | Pharmacy Progress Note ---
Glycemic Control Progress Note Date of Service Jan 23, 2017. Scope Glycemic Pharmacist consulted for glycemic control to write orders per [facility] inpatient glycemic control protocol. Objective Accuchecks BSG (last 24hrs): Test 01/22/17 10:37 01/22/17 11:55 01/22/17 16:18 01/22/17 16:55 Random Glucose 151 mg/dl (70-99) 128 mg/dl (70-99) Bedside Glucose 161 mg/dl (70-90) 131 mg/dl (70-90) Test 01/22/17 20:32 01/23/17 04:19 01/23/17 08:00 Bedside Glucose 142 mg/dl (70-90) 112 mg/dl (70-90) Random Glucose 92 mg/dl (70-99) HbA1c: Test 01/20/17 05:29 Hemoglobin A1c 10.0 % (4.5-5.6) H Recent Pertinent Medications Outpatient Anti-diabetic Regimen: * Levemir 50 units BID + Novolog 18 units AC The patient is currently receiving: * Basal insulin: Levemir 44 units every 12 hours * Correctional Insulin: Novolog Correction per scale ACHS Goal Range: Low 110 mg/dL - High 140 mg/dL Correction Factor: 15 mg/dL/unit * Prandial insulin: Per carb ratio of 1 unit per 5 grams CHO consumed Risk Factors for Insulin Resistance: * Diet: AHA/Type 2 diabetic diet Outpatient Anti-Diabetic Meds Levemir 50 units twice daily Novolog 18 units AC Assessment & Plan ASSESSMENT: * ADA & AACE recommend a goal blood sugar range 140-180 mg/dl for the majority of critically ill & non-critically ill patients. However, more stringent targets may be selected in individual cases. Will utilize more stringent goal of 110-140mg/dl based on patient age & comorbidities. Additionally, tighter glycemic control is warranted to minimize any complications from back pain. * Ms Garcia was admitted 01/17/17 with back pain. She was initially started on her home dose of Levemir 50 units twice daily plus correctional insulin with CF of 40 mg/dL/unit and CR of 1:10. After pharmacy was consulted for glycemic management, her Levemir and correctional insulin have been changed to reflect her NPO status. Her blood sugars yesterday ranged from 132 mg/dL to 161 mg/dL. She received 114 units (88 units were Levemir) yesterday. She did start a type 2 diabetic diet, but she has tolerated this poorly. She is on a fluid restricted diet. Her creatinine increased from 0.97 mg/dL to 1.3 mg/dL today which could potentially make her insulin sensitive. * Ms Garcia's Levemir was increased from 40 units twice daily to 44 units twice daily about 2 days ago. Today, her fasting was 92 mg/dL which was below her goal range. While this is an appropriate fasting blood sugar for many individuals, I was concerned about the decrease from 132 mg/dL yesterday to 92 mg/dL today. The blood sugar today may reflect Levemir steady state. I returned the Levemir dose to 40 units twice daily. Correctional insulin was maintained. Her lunch blood sugar was 239 mg/dL - she received 16 units of correctional insulin. I am concerned that this may be too effective for her (decrease her blood sugar too much). Therefore I will continue the same regimen but add a scale for Lantus in the evening. PLAN FOR INPATIENT GLYCEMIC CONTROL: * CHANGE Lantus to 40-44 units SQ BID (Lantus 40 units if blood sugar less than 180 mg/dL and Lantus 44 units if blood sugar 180 mg/dL or greater) * CONTINUING correction factor of 15 mg/dl/unit * CONTINUING carb ratio of 1 unit per 5 grams CHO consumed * CONTINUING goal range of Low 110 mg/dL - High 140 mg/dL * Please note that the plan above was derived based on current level of insulin resistance and hospital stress. These recommendations are appropriate for inpatient admission only. Plan of care upon discharge will need to be reassessed to avoid potential outpatient hypo/hyperglycemia. Thank you.
--- NOTE | 2017-01-23 13:34 | Progress Note ---
Subjective Date of Service: Jan 23, 2017. Subjective Pt evaluation today including: conversation w/ patient, physical exam, chart review, lab review, review of studies, review of inpatient medication list Pt resting comfortably in bed Denies any nausea this AM States feeling better No incidents overnight Problem List Medical Problems: (1) Acute renal failure (ARF) Status: Acute (2) Hip pain Permanent Comment: back and SI joint pain Status: Acute (3) Pacemaker malfunction Status: Acute (4) TIA (transient ischemic attack) Status: Acute Review of Systems Constitutional: No fever, No chills, No sweats, No weight loss, No weakness Eyes: No worsening of vision, No eye pain, No discharge Respiratory: No cough, No sputum, No wheezing, No shortness of breath, No dyspnea on exertion Cardiac: No chest pain, No orthopnea, No PND, No edema, No claudication Abdomen: No pain, No nausea, No vomiting, No diarrhea, No constipation Musculoskeletal: No joint pain, No muscle pain, No swelling, No calf pain Female : No dysuria, No urinary frequency, No hematuria, No incontinence Neurologic: No memory loss, No paralysis, No weakness, No numbness/tingling Psychiatric: No depression symptoms, No anhedonism, No anxiety, No insomnia Endo: No fatigue, No excessive thirst, No excessive urination Skin: No rash, No itch Objective Vital Signs Date Time Temp Pulse Resp B/P (MAP) Pulse Ox O2 Delivery O2 Flow Rate FiO2 01/23/17 07:45 Room Air 01/23/17 07:38 98 Room Air 01/23/17 07:26 36.8 72 14 156/90 (112) 98 Room Air 01/22/17 23:30 Room Air 01/22/17 23:03 36.9 75 18 122/72 (89) 94 Room Air 01/22/17 15:50 Room Air 01/22/17 15:00 36.8 73 18 158/88 (111) 97 Room Air Physical Exam General Appearance: WD/WN, no apparent distress Eyes: normal inspection, PERRL, EOMI, sclerae normal Neck: supple, no adenopathy, thyroid normal, no JVD Respiratory/Chest: chest non-tender, lungs clear, normal breath sounds, no respiratory distress Cardiovascular: regular rate, rhythm, no edema, no gallop, no JVD Abdomen: normal bowel sounds, non tender, soft, no organomegaly Extremities: normal range of motion, non-tender, normal inspection, no pedal edema, no calf tenderness Neurologic/Psychiatric: no motor/sensory deficits, alert, normal mood/affect, oriented x 3 Laboratory Results Last 24 Hours Test 01/22/17 16:18 01/22/17 16:55 01/22/17 20:24 01/22/17 20:32 Sodium Level 117 mmol/L 121 mmol/L Potassium Level 3.8 mmol/L Chloride Level 84 mmol/L Carbon Dioxide Level 24 mmol/L Anion Gap 9.0 mmol/L Blood Urea Nitrogen 22 mg/dl Creatinine 1.10 mg/dl Est Creatinine Clear Calc Drug Dose 36.2 ml/min Estimated GFR () 56.5 Estimated GFR (Non- 48.7 BUN/Creatinine Ratio 20.0 Random Glucose 128 mg/dl Calcium Level 9.0 mg/dl Bedside Glucose 131 mg/dl 142 mg/dl Test 01/22/17 23:46 01/23/17 04:19 01/23/17 07:38 01/23/17 08:00 Sodium Level 123 mmol/L 124 mmol/L 123 mmol/L Potassium Level 3.8 mmol/L Chloride Level 91 mmol/L Carbon Dioxide Level 23 mmol/L Anion Gap 10.0 mmol/L Blood Urea Nitrogen 27 mg/dl Creatinine 1.30 mg/dl Est Creatinine Clear Calc Drug Dose 30.6 ml/min Estimated GFR () 46.2 Estimated GFR (Non- 39.8 BUN/Creatinine Ratio 20.6 Random Glucose 92 mg/dl Osmolality 265 mOsm/kg Calcium Level 9.6 mg/dl Bedside Glucose 112 mg/dl Test 01/23/17 09:30 01/23/17 12:20 Urine Osmolality 221 mOms/kg Sodium Level 124 mmol/L Assessment and Plan (1) Hyponatremia (2) Hip pain (3) Pacemaker 76 y/o F Hx CAD - CABG 12/28, IDDM, HTN, AF, atrial pacer. Pt presents with a primary compliant of L hip pain. She states that this has been progressive over the course of 2 days and she now has difficulty walking. She denies trauma to the area. She denies CP, SOB, N/V, diarrhea, dysuria or fevers. Imaging did not reveal any acute fractures. A CT abdomen/pelvis was however suspicious for a soft tissue mass in the rectum. She did not have any related symptoms. Hip pain - having difficulty with ambulation - no evidence of fracture - orthopedics consulted, no surgical intervention required, PAIN RESOLVED Continue lidoderm patch Patient has not needed dilaudid in last 24 hrs Symptomatic hyponatremia - resolving IV hydration dced on 01/21 due to worsening hyponatremia 124 this AM, seconda dose of samsca 15 mg given 01/23 Continue to repeat serum Na q 4hrs Nephrology consulted Fluid restriction of 1000 ml daily ARF - likely prerenal in nature - slightly worsening, hold IVF likely secondary to SIADH Mass seen in rectum - surgery consulted - no related symptoms at present. No surgical intervention required HTN - Stable, cont, Coreg - can provide Hydralazine PRN if needed CAD - post CABG 12/28 - cont Coreg, statin, ASA DM - Hg A1c 10, cont levemir 44 units BID in addition to SSI, glycemic control consult appreciated Problem Qualifiers (1) Hip pain: Laterality: left Qualified Codes: M25.552 - Pain in left hip
[2017-01-23 13:43] VITALS: BP_SYST 128; BP_SYST 129; BP_DIAS 72; BP_DIAS 73; PULSE 72; TEMP 36.6; O2SAT 93
[2017-01-23] MEDS: TRAMADOL HCL 50 MG TAB PO PRN (14:14)
[2017-01-23 15:35] LABS: BUN/CREATININE RATIO 19.3 (10-20); CALCIUM 9.4 mg/dl (8.5-10.1); CREATININE 1.8 mg/dl (0.60-1.20); POTASSIUM 4.1 mmol/L (3.5-5.1)
[2017-01-23 15:43] VITALS: BP 161/92; PULSE 75; TEMP 36.4; O2SAT 97
[2017-01-23 18:39] VITALS: BP 147/88
[2017-01-23] MEDS: VERAPAMIL HCL 120 MG TABCR PO SCH (21:17)
[2017-01-23] MEDS: WARFARIN SOD 5 MG TAB PO SCH (21:20)
[2017-01-23 22:50] VITALS: BP 145/93; PULSE 75; TEMP 36.5; O2SAT 99
[2017-01-24] MEDS: METOCLOPRAMIDE HCL INJ 5 MG/ML 2 ML VIAL IV. SCH ×4 (02:28→20:30)
[2017-01-24 06:53] LABS: BUN/CREATININE RATIO 24.5 (10-20); CALCIUM 9.7 mg/dl (8.5-10.1); CREATININE 1.5 mg/dl (0.60-1.20); MAGNESIUM 2.2 mg/dl (1.8-2.4); POTASSIUM 4.6 mmol/L (3.5-5.1)
[2017-01-24 07:34] VITALS: BP 130/82; PULSE 76; TEMP 36.6; O2SAT 96
[2017-01-24 08:13] VITALS: O2SAT 96
[2017-01-24] MEDS: CITALOPRAM 20 MG TAB PO SCH (08:37)
[2017-01-24] MEDS: CARVEDILOL 6.25 MG TAB PO SCH ×2 (08:38→21:06)
[2017-01-24] MEDS: POTASSIUM CHLORIDE 20 MEQ TABCR PO SCH ×2 (08:39→21:05)
[2017-01-24] MEDS: TOLVAPTAN TAB 15 MG TAB PO SCH (08:40)
[2017-01-24] MEDS: CLOPIDOGREL BISULFATE 75 MG TAB PO SCH (08:40)
[2017-01-24] MEDS: LISINOPRIL 5 MG TAB PO SCH (08:41)
[2017-01-24] MEDS: LIDODERM (LIDOCAINE) PATCH 5% TD SCH (08:42)
[2017-01-24] MEDS ORDERED: SODIUM CHLORIDE 1 GM TAB PO ONE (09:00)
[2017-01-24 09:02] LABS: BASO % 0.2 %; BASO ABS # 0.01 K/uL (0-0.2); COMPLETE YES; EOS % 3.6 %; HEMATOCRIT 32.7 % (37-47); IG% 0.5 %; LYMPH % 33.6 %; LYMPH ABS # 1.86 K/uL (1.2-3.4); MEAN CELL VOLUME 88.9 fL (80-100); MEAN CORPUSCULAR HEMOGLOBIN 31.8 pg (25-34); MEAN CORPUSCULAR HGB CONC 35.8 g/dl (32-36); MEAN PLATELET VOLUME 8.3 fL (7.4-10.4); MONO % 10.7 %; NEUT % 51.4 %; PLATELET COUNT 187 K/uL (130-400); RED BLOOD COUNT 3.68 M/uL (4.2-5.4); WHITE BLOOD COUNT 5.53 K/uL (4.8-10.8)
[2017-01-24] MEDS: INSULIN ASPART 100 UNITS/ML 3 ML PEN SC SCH ×4 (09:10→21:10)
[2017-01-24] MEDS: INSULIN DETEMIR FLEXPEN/FLEX TOUCH 100 UNITS/ML 3ML SQ SCH ×2 (09:11→21:11)
--- NOTE | 2017-01-24 09:45 | Nephrology Progress Note ---
Nephrology Progress Note Date of Service Jan 24, 2017. Chief Complaint Hyponatremia Subjective Mrs. Garcia was seen & examined in her room this morning. She participated in physical therapy yesterday. She was able to walk using a rolling walker and climb stairs with assistance. This morning she complains of weakness and persistent low back pain. The patient has received a third dose of Tolvaptan this morning at 9 am. Review of Systems Constitutional: No fever Cardiovascular: No chest pain Respiratory: No dyspnea at rest Abdomen: No pain, No nausea Extremities: No leg edema A complete review of systems was performed. Pertinent positives are noted above. All other systems are negative. Vital Signs Last 8 Hrs Date Time Temp Pulse Resp B/P (MAP) Pulse Ox O2 Delivery O2 Flow Rate FiO2 01/24/17 08:13 96 Room Air 01/24/17 07:34 36.6 76 12 130/82 (98) 96 Room Air 01/24/17 07:10 Room Air Last Recorded Weight Weight (Kilograms): 60.000 Physical Exam General Appearance: no apparent distress Head: atraumatic Eyes: PERRL Neck: no adenopathy Respiratory/Chest: lungs clear, no respiratory distress Cardiovascular: regular rate, rhythm Abdomen/GI: normal bowel sounds, non tender, soft Extremities/Musculoskelatal: no pedal edema Neurologic/Psych: alert, oriented x 3 Family History Hypertension Stroke Negative for CKD / ESRD Social History Smokeless Tobacco Use: No Alcohol Use: none Drug Use: none Marital Status: Occupation: retired . Retired. Remote h/o tobacco use. Laboratory Results Past 24 Hours 01/24/17 06:04 Red Blood Count 3.68, Mean Corpuscular Volume 88.9, Mean Corpuscular Hemoglobin 31.8, Mean Corpuscular Hemoglobin Concent 35.8, Mean Platelet Volume 8.3, Neutrophils (%) (Auto) 51.4, Lymphocytes (%) (Auto) 33.6, Monocytes (%) (Auto) 10.7, Eosinophils (%) (Auto) 3.6, Basophils (%) (Auto) 0.2, Neutrophils # (Auto ) 2.84, Lymphocytes # (Auto) 1.86, Monocytes # (Auto) 0.59, Eosinophils # (Auto ) 0.20, Basophils # (Auto) 0.01 01/23/17 12:20 01/23/17 15:03 01/24/17 06:04 Test 01/23/17 11:53 01/23/17 15:03 01/23/17 17:09 01/23/17 20:59 Bedside Glucose 239 mg/dl (70-90) 80 mg/dl (70-90) 216 mg/dl (70-90) Anion Gap 10.0 mmol/L (3-11) Est Creatinine Clear Calc Drug Dose 22.1 ml/min Estimated GFR () 31.1 Estimated GFR (Non- 26.9 BUN/Creatinine Ratio 19.3 (10-20) Calcium Level 9.4 mg/dl (8.5-10.1) Test 01/24/17 06:04 01/24/17 08:16 White Blood Count 5.53 K/uL (4.8-10.8) Red Blood Count 3.68 M/uL (4.2-5.4) Hemoglobin 11.7 g/dL (12.0-16.0) Hematocrit 32.7 % (37-47) Mean Corpuscular Volume 88.9 fL (80-100) Mean Corpuscular Hemoglobin 31.8 pg (25-34) Mean Corpuscular Hemoglobin Concent 35.8 g/dl (32-36) Platelet Count 187 K/uL (130-400) Mean Platelet Volume 8.3 fL (7.4-10.4) Neutrophils (%) (Auto) 51.4 % Lymphocytes (%) (Auto) 33.6 % Monocytes (%) (Auto) 10.7 % Eosinophils (%) (Auto) 3.6 % Basophils (%) (Auto) 0.2 % Neutrophils # (Auto) 2.84 K/uL (1.4-6.5) Lymphocytes # (Auto) 1.86 K/uL (1.2-3.4) Monocytes # (Auto) 0.59 K/uL (0.11-0.59) Eosinophils # (Auto) 0.20 K/uL (0-0.5) Basophils # (Auto) 0.01 K/uL (0-0.2) RDW Standard Deviation 44.4 fL (36.4-46.3) RDW Coefficient of Variation 13.6 % (11.5-14.5) Immature Granulocyte % (Auto) 0.5 % Immature Granulocyte # (Auto) 0.03 K/uL (0.00-0.02) Anion Gap 9.0 mmol/L (3-11) Est Creatinine Clear Calc Drug Dose 26.5 ml/min Estimated GFR () 38.8 Estimated GFR (Non- 33.5 BUN/Creatinine Ratio 24.5 (10-20) Calcium Level 9.7 mg/dl (8.5-10.1) Magnesium Level 2.2 mg/dl (1.8-2.4) Bedside Glucose 171 mg/dl (70-90) Allergies Coded Allergies: Amoxicillin (Unverified Allergy, Intermediate, ITCHING/, 01/17/17) Morphine (Verified Adverse Reaction, Mild, NOSE ITCHING , 01/11/16) Nifedipine (Verified Adverse Reaction, Mild, SHAKING, 01/11/16) Medications Current Inpatient Medications Medications (Trade) Dose Ordered Sig/Estehpanie Route Start Time Stop Time Status Last Admin Dose Admin Carvedilol (Coreg Tab) 6.25 mg BID PO 01/17/17 21:00 02/16/17 20:59 01/24/17 08:38 6.25 MG Citalopram Hydrobromide (celeXA TAB) 20 mg QAM PO 01/18/17 09:00 02/17/17 08:59 01/24/17 08:37 20 MG Clopidogrel Bisulfate (plAVix TAB) 75 mg QAM PO 01/18/17 09:00 02/17/17 08:59 01/24/17 08:40 75 MG Docusate Sodium (coLACE CAP) 100 mg BID PRN PO 01/17/17 19:45 02/16/17 19:44 Lisinopril (Zestril Tab) 5 mg QAM PO 01/18/17 09:00 02/17/17 08:59 01/24/17 08:41 5 MG Verapamil HCl (Calan-Sr Tab) 120 mg HS PO 01/17/17 21:00 02/16/17 20:59 01/23/17 21:17 120 MG Warfarin Sodium (Coumadin Tab) 5 mg HS PO 01/17/17 21:00 02/16/17 20:59 01/23/17 21:20 5 MG Tramadol HCl (Ultram Tab) 50 mg Q4H PRN PO 01/17/17 20:00 02/16/17 19:59 01/23/17 14:14 50 MG Acetaminophen (Tylenol Tab) 650 mg Q4H PRN PO 01/17/17 20:00 02/16/17 19:59 01/23/17 09:20 650 MG Al Hydrox/Mg Hydrox/Simethicone (Maalox Max Susp) 15 ml Q4H PRN PO 01/17/17 20:00 02/16/17 19:59 01/19/17 11:09 15 ML Magnesium Hydroxide (Milk Of Magnesia Susp) 30 ml Q6H PRN PO 01/17/17 20:00 02/16/17 19:59 Polyethylene (Miralax Powder Packet) 17 gm DAILY PRN PO 01/17/17 22:00 02/16/17 21:59 Ondansetron HCl (Zofran Inj) 4 mg Q6H PRN IV 01/17/17 20:00 02/16/17 19:59 01/22/17 05:16 4 MG Glucose (Glucose 40% Gel) 15-30 GRAMS 15 GRAMS... UD PRN PO 01/17/17 22:00 02/16/17 21:59 Glucose (Glucose Chew Tab) 4-8 Tablets 4 Tabl... UD PRN PO 01/17/17 22:00 02/16/17 21:59 Dextrose (Dextrose 50% 50ML Syringe) 25-50ML OF 50% DW IV FOR... UD PRN IV 01/17/17 22:00 02/16/17 21:59 Glucagon (Glucagon Inj) 1 mg UD PRN SQ 01/17/17 22:00 02/16/17 21:59 Miscellaneous (Iv Fluids Completed) 1 ea PRN PRN N/A 01/17/17 22:15 01/17/18 22:14 Lidocaine (Lidoderm Patch 5%) 1 patch QAM TD 01/18/17 20:00 02/17/17 19:59 01/24/17 08:42 1 PATCH Miscellaneous (Remove Lidoderm Patch) 1 ea DAILY@21 N/A 01/19/17 06:00 02/18/17 05:59 01/23/17 21:21 1 EA Miscellaneous Information (Consult Glycemic Management Pharmacy) 1 ea UD PRN N/A 01/19/17 17:55 02/18/17 17:54 Metoclopramide HCl (Reglan Inj) 10 mg Q6H IV. 01/19/17 20:00 02/18/17 18:29 01/24/17 07:57 10 MG Hydromorphone HCl (Dilaudid Inj) 0.5 mg Q4H PRN IV 01/20/17 18:00 02/03/17 17:59 01/21/17 21:15 0.5 MG Promethazine HCl 12.5 mg/Sodium Chloride 50.5 ml @ 204 mls/hr Q6H PRN IV 01/21/17 16:00 02/20/17 15:59 Insulin Aspart (novoLOG ASPART) SLIDING SCALE G... ACHS SC 01/22/17 08:00 02/21/17 07:59 01/24/17 09:10 11 UNITS Potassium Chloride (Klor-Con Tab) 40 meq BID PO 01/22/17 09:00 02/21/17 08:59 01/24/17 08:39 40 MEQ Insulin Detemir (Levemir Flexpen/ FlexTouch) 44 units BID SQ 01/24/17 09:00 02/23/17 08:59 01/24/17 09:11 44 UNITS Impression (1) Hypertension (2) Hyponatremia (3) Hip pain (4) Acute renal failure (ARF) Mrs. Garcia was admitted for evaluation of low back, L leg pain and KELLY. She has chronic hyponatremia w/ serum sodium 125 - 130 mmol/l while on thiazide diuretic. Kidney function has recovered with IV hydration but serum sodium has progressively dropped to 114 mmol/L. Uosm is inappropriately elevated at 245. IVF and thiazide diuretic have been stopped. Patient has been given Tolvaptan this morning. She is asymptomatic. She has no headache or visual change. Recommendations HYPONATREMIA: -- Likely due to multiple factors including thiazide diuretic, pain, SSRI. -- Uosm has been inappropriately elevated -- Recommend avoiding Thiazide diuretics -- Patient received 3rd dose Tolvaptan this morning. Will stop Tolvaptan following this dose and attempt to manage w/ fluid restriction and NaCl administration -- Will recheck serum and urine osmolality in am -- Recommend hospitalization until serum sodium is stable on oral regimen of NaCl, oral fluid restriction +/- low dose loop diuretic HYPOKALEMIA: -- Corrected. Will monitor HYPERTENSION: -- Blood pressure improved. Will monitor -- Avoid thiazide diuretics OTHER: -- Continue physical therapy for strengthening
--- NOTE | 2017-01-24 12:24 | Progress Note ---
Subjective Date of Service: Jan 24, 2017. Subjective Pt evaluation today including: conversation w/ patient, physical exam, chart review, lab review, review of studies, review of inpatient medication list Pt resting comfortably in bed No acute distress No acute events overnight Problem List Medical Problems: (1) Acute renal failure (ARF) Status: Acute (2) Hip pain Permanent Comment: back and SI joint pain Status: Acute (3) Pacemaker malfunction Status: Acute (4) TIA (transient ischemic attack) Status: Acute Review of Systems Constitutional: No fever, No chills, No sweats, No weight loss ENT: No hearing loss, No unusual epistaxis, No nasal symptoms, No sore throat Respiratory: No cough, No sputum, No wheezing, No shortness of breath Cardiac: No chest pain, No orthopnea, No PND, No edema Abdomen: No pain, No nausea, No vomiting, No diarrhea Musculoskeletal: No joint pain, No muscle pain, No swelling, No calf pain Female : No dysuria, No urinary frequency, No hematuria, No incontinence Neurologic: No memory loss, No paralysis, No weakness, No numbness/tingling Psychiatric: No depression symptoms, No anhedonism, No anxiety, No insomnia Endo: No fatigue, No excessive thirst Skin: No rash, No itch Objective Vital Signs Date Time Temp Pulse Resp B/P (MAP) Pulse Ox O2 Delivery O2 Flow Rate FiO2 01/24/17 08:13 96 Room Air 01/24/17 07:34 36.6 76 12 130/82 (98) 96 Room Air 01/24/17 07:10 Room Air 01/24/17 00:10 Room Air 01/23/17 22:50 36.5 75 16 145/93 (110) 99 Room Air 01/23/17 18:39 147/88 (107) 01/23/17 16:10 Room Air 01/23/17 15:43 36.4 75 18 161/92 (115) 97 Room Air 01/23/17 13:43 36.6 72 14 128/72 (90) 93 Room Air Physical Exam General Appearance: WD/WN, no apparent distress Eyes: normal inspection, PERRL, EOMI, sclerae normal ENT: normal ENT inspection, hearing grossly normal, TMs normal, pharynx normal Respiratory/Chest: chest non-tender, lungs clear, normal breath sounds, no respiratory distress Cardiovascular: no edema, no gallop, no JVD, no murmur Abdomen: normal bowel sounds, non tender, soft, no organomegaly Neurologic/Psychiatric: no motor/sensory deficits, alert, normal mood/affect, oriented x 3 Laboratory Results Last 24 Hours Test 01/23/17 15:03 01/23/17 17:09 01/23/17 20:59 01/24/17 06:04 Sodium Level 127 mmol/L 128 mmol/L Potassium Level 4.1 mmol/L 4.6 mmol/L Chloride Level 95 mmol/L 99 mmol/L Carbon Dioxide Level 22 mmol/L 20 mmol/L Anion Gap 10.0 mmol/L 9.0 mmol/L Blood Urea Nitrogen 35 mg/dl 37 mg/dl Creatinine 1.80 mg/dl 1.50 mg/dl Est Creatinine Clear Calc Drug Dose 22.1 ml/min 26.5 ml/min Estimated GFR () 31.1 38.8 Estimated GFR (Non- 26.9 33.5 BUN/Creatinine Ratio 19.3 24.5 Random Glucose 105 mg/dl 140 mg/dl Calcium Level 9.4 mg/dl 9.7 mg/dl Bedside Glucose 80 mg/dl 216 mg/dl White Blood Count 5.53 K/uL Red Blood Count 3.68 M/uL Hemoglobin 11.7 g/dL Hematocrit 32.7 % Mean Corpuscular Volume 88.9 fL Mean Corpuscular Hemoglobin 31.8 pg Mean Corpuscular Hemoglobin Concent 35.8 g/dl Platelet Count 187 K/uL Mean Platelet Volume 8.3 fL Neutrophils (%) (Auto) 51.4 % Lymphocytes (%) (Auto) 33.6 % Monocytes (%) (Auto) 10.7 % Eosinophils (%) (Auto) 3.6 % Basophils (%) (Auto) 0.2 % Neutrophils # (Auto) 2.84 K/uL Lymphocytes # (Auto) 1.86 K/uL Monocytes # (Auto) 0.59 K/uL Eosinophils # (Auto) 0.20 K/uL Basophils # (Auto) 0.01 K/uL RDW Standard Deviation 44.4 fL RDW Coefficient of Variation 13.6 % Immature Granulocyte % (Auto) 0.5 % Immature Granulocyte # (Auto) 0.03 K/uL Magnesium Level 2.2 mg/dl Test 01/24/17 08:16 01/24/17 11:52 Bedside Glucose 171 mg/dl Assessment and Plan (1) Hyponatremia (2) Hip pain (3) Pacemaker 76 y/o F Hx CAD - CABG 12/28, IDDM, HTN, AF, atrial pacer. Pt presents with a primary compliant of L hip pain. She states that this has been progressive over the course of 2 days and she now has difficulty walking. She denies trauma to the area. She denies CP, SOB, N/V, diarrhea, dysuria or fevers. Imaging did not reveal any acute fractures. A CT abdomen/pelvis was however suspicious for a soft tissue mass in the rectum. She did not have any related symptoms. Hip pain - having difficulty with ambulation - no evidence of fracture - orthopedics consulted, no surgical intervention required, PAIN RESOLVED Continue lidoderm patch 5% daily Patient has not needed dilaudid in last 2 days Symptomatic hyponatremia - resolving IV hydration dced on 01/21 due to worsening hyponatremia 128 this AM, Total of 3 doses of samsca 15 mg PO given including dose this AM Continue to repeat serum Na q 4hrs Nephrology consulted Fluid restriction of 1000 ml daily in addition to salt tabs Would like to watch pt for one more night, likely DC in AM ARF - likely prerenal in nature - slightly improving, hold IVF, better PO intake Mass seen in rectum - surgery consulted - no related symptoms at present. No surgical intervention required HTN - Stable, cont, Coreg - can provide Hydralazine PRN if needed CAD - post CABG 12/28 - cont Coreg, statin, ASA DM - Hg A1c 10, cont levemir 44 units BID in addition to SSI, glycemic control consult appreciated Problem Qualifiers (1) Hip pain: Laterality: left Qualified Codes: M25.552 - Pain in left hip
[2017-01-24 12:27] LABS: SODIUM 129 mmol/L (136-145)
--- NOTE | 2017-01-24 13:48 | Pharmacy Progress Note ---
Glycemic Control Progress Note Date of Service Jan 24, 2017. Scope Glycemic Pharmacist consulted for glycemic control to write orders per [facility] inpatient glycemic control protocol. Objective Accuchecks BSG (last 24hrs): Test 01/23/17 15:03 01/23/17 17:09 01/23/17 20:59 01/24/17 06:04 Random Glucose 105 mg/dl (70-99) 140 mg/dl (70-99) Bedside Glucose 80 mg/dl (70-90) 216 mg/dl (70-90) Test 01/24/17 08:16 Bedside Glucose 171 mg/dl (70-90) HbA1c: Test 01/20/17 05:29 Hemoglobin A1c 10.0 % (4.5-5.6) H Recent Pertinent Medications Outpatient Anti-diabetic Regimen: * Levemir 50 units BID + Novolog 18 units AC The patient is currently receiving: * Basal insulin: Levemir 44 units every 12 hours * Correctional Insulin: Novolog Correction per scale ACHS Goal Range: Low 110 mg/dL - High 140 mg/dL Correction Factor: 15 mg/dL/unit * Prandial insulin: Per carb ratio of 1 unit per 5 grams CHO consumed Risk Factors for Insulin Resistance: * Diet: AHA/Type 2 diabetic diet Outpatient Anti-Diabetic Meds Levemir 50 units BID Novolog 18 units with meals Assessment & Plan ASSESSMENT: * ADA & AACE recommend a goal blood sugar range 140-180 mg/dl for the majority of critically ill & non-critically ill patients. However, more stringent targets may be selected in individual cases. Will utilize more stringent goal of 110-140mg/dl based on patient age & comorbidities. Additionally, tighter glycemic control is warranted to minimize any complications from back pain. * Ms Garcia was admitted 01/17/17 with back pain. She was initially started on her home dose of Levemir 50 units twice daily plus correctional insulin with CF of 40 mg/dL/unit and CR of 1:10. After pharmacy was consulted for glycemic management, her Levemir and correctional insulin have been changed to reflect her NPO status to type 2 diabetic diet that she is tolerating better. Her blood sugars yesterday ranged from 80 mg/dL to 239 mg/dL. She received 124 units (84 units were Levemir) yesterday. She is on a fluid restricted diet. Her creatinine appeared to peak yesterday at 1.8 mg/dL because it is 1.5 mg/dL today which could potentially make her insulin sensitive. * Ms Garcia's Levemir was decreased yesterday to 40 units in the morning. She did receive 44 units yesterday evening. Her fasting blood sugar today was 140 mg /dL which was higher than yesterday. Since her blood sugar trended upwards yesterday and her fasting was higher today, I increased the Lantus back to the previous dose of 44 units twice daily. I believe that her daily requirement is approximately 120 units/day. Therefore I altered the carbohydrate ratio to 4 from 5 to reflect this goal. I hope that this will push the patient towards a 50 /50 split of basal-bolus. PLAN FOR INPATIENT GLYCEMIC CONTROL: * CONTINUE Lantus 44 units SQ BID * CONTINUING correction factor of 15 mg/dl/unit * TIGHTENING carb ratio to 1 unit per 4 grams CHO consumed * CONTINUING goal range of Low 110 mg/dL - High 140 mg/dL * Please note that the plan above was derived based on current level of insulin resistance and hospital stress. These recommendations are appropriate for inpatient admission only. Plan of care upon discharge will need to be reassessed to avoid potential outpatient hypo/hyperglycemia. Thank you.
[2017-01-24 15:12] VITALS: BP 131/82; PULSE 74; TEMP 36.7; O2SAT 95
[2017-01-24] MEDS ORDERED: SODIUM CHLORIDE 1 GM TAB PO SCH (21:00)
[2017-01-24 21:02] VITALS: BP 148/90; PULSE 74
[2017-01-24] MEDS: WARFARIN SOD 5 MG TAB PO SCH (21:06)
[2017-01-24] MEDS: VERAPAMIL HCL 120 MG TABCR PO SCH (21:06)
[2017-01-24 22:55] VITALS: BP 123/79; PULSE 82; TEMP 36.8; O2SAT 93
[2017-01-25] MEDS: METOCLOPRAMIDE HCL INJ 5 MG/ML 2 ML VIAL IV. SCH ×4 (02:08→20:18)
[2017-01-25 07:30] VITALS: O2SAT 96
[2017-01-25 07:41] VITALS: BP 128/88; PULSE 78; TEMP 36.8; O2SAT 96
[2017-01-25 07:56] VITALS: O2SAT 96
[2017-01-25 08:17] LABS: BUN/CREATININE RATIO 24.8 (10-20); CALCIUM 9.2 mg/dl (8.5-10.1); CREATININE 1.5 mg/dl (0.60-1.20)
[2017-01-25 08:20] LABS: POTASSIUM 5.3 mmol/L (3.5-5.1)
[2017-01-25] MEDS: CITALOPRAM 20 MG TAB PO SCH (08:33)
[2017-01-25] MEDS: CARVEDILOL 6.25 MG TAB PO SCH ×2 (08:34→20:24)
[2017-01-25] MEDS: CLOPIDOGREL BISULFATE 75 MG TAB PO SCH (08:36)
[2017-01-25] MEDS: LISINOPRIL 5 MG TAB PO SCH (08:37)
[2017-01-25] MEDS: LIDODERM (LIDOCAINE) PATCH 5% TD SCH (08:38)
[2017-01-25] MEDS: INSULIN ASPART 100 UNITS/ML 3 ML PEN SC SCH ×4 (08:50→20:30)
[2017-01-25] MEDS ORDERED: SODIUM CHLORIDE 1 GM TAB PO ONE (08:52)
[2017-01-25] MEDS: INSULIN DETEMIR FLEXPEN/FLEX TOUCH 100 UNITS/ML 3ML SQ SCH ×2 (08:52→20:33)
[2017-01-25] MEDS ORDERED: FUROSEMIDE 20 MG TAB PO ONE (08:52)
[2017-01-25] MEDS: SODIUM CHLORIDE 1 GM TAB PO SCH ×2 (09:33→20:25)
--- NOTE | 2017-01-25 10:09 | Nephrology Progress Note ---
Nephrology Progress Note Date of Service Jan 25, 2017. Chief Complaint Hyponatremia Subjective Mrs. Garcia was seen & examined in her hospital room this morning. She has persistent low back pain but was able to participate in physical therapy yesterday. She currently denies angina or dyspnea. She is tolerating her diet. Review of Systems Constitutional: No fever Cardiovascular: No chest pain Respiratory: No dyspnea at rest Abdomen: No pain, No nausea, No vomiting Extremities: No leg edema A complete review of systems was performed. Pertinent positives are noted above. All other systems are negative. Vital Signs Last 8 Hrs Date Time Temp Pulse Resp B/P (MAP) Pulse Ox O2 Delivery O2 Flow Rate FiO2 01/25/17 07:56 96 Room Air 01/25/17 07:41 36.8 78 12 128/88 (101) 96 Room Air 01/25/17 07:30 96 Room Air Last Recorded Weight Weight (Kilograms): 60.000 Physical Exam General Appearance: no apparent distress Head: normocephalic, atraumatic Eyes: PERRL Neck: no adenopathy Respiratory/Chest: lungs clear Cardiovascular: regular rate, rhythm Abdomen/GI: normal bowel sounds, non tender, soft Extremities/Musculoskelatal: no pedal edema Neurologic/Psych: alert, oriented x 3 Family History Hypertension Stroke Negative for CKD / ESRD Social History Smokeless Tobacco Use: No Alcohol Use: none Drug Use: none Marital Status: Occupation: retired . Retired. Remote h/o tobacco use. Laboratory Results Past 24 Hours 01/24/17 11:52 01/24/17 16:20 01/24/17 20:37 01/25/17 07:26 Test 01/24/17 11:52 01/24/17 12:08 01/24/17 13:50 01/24/17 16:59 Chemistry Specimen Hemolysis Bedside Glucose 174 mg/dl (70-90) 76 mg/dl (70-90) Urine Osmolality 450 mOms/kg (500-800) Test 01/24/17 20:41 01/25/17 07:26 01/25/17 08:10 Bedside Glucose 189 mg/dl (70-90) 169 mg/dl (70-90) Anion Gap 8.0 mmol/L (3-11) Est Creatinine Clear Calc Drug Dose 26.5 ml/min Estimated GFR () 38.8 Estimated GFR (Non- 33.5 BUN/Creatinine Ratio 24.8 (10-20) Calcium Level 9.2 mg/dl (8.5-10.1) Allergies Coded Allergies: Amoxicillin (Unverified Allergy, Intermediate, ITCHING/, 01/17/17) Morphine (Verified Adverse Reaction, Mild, NOSE ITCHING , 01/11/16) Nifedipine (Verified Adverse Reaction, Mild, SHAKING, 01/11/16) Medications Current Inpatient Medications Medications (Trade) Dose Ordered Sig/Estephanie Route Start Time Stop Time Status Last Admin Dose Admin Carvedilol (Coreg Tab) 6.25 mg BID PO 01/17/17 21:00 02/16/17 20:59 01/25/17 08:34 6.25 MG Citalopram Hydrobromide (celeXA TAB) 20 mg QAM PO 01/18/17 09:00 02/17/17 08:59 01/25/17 08:33 20 MG Clopidogrel Bisulfate (plAVix TAB) 75 mg QAM PO 01/18/17 09:00 02/17/17 08:59 01/25/17 08:36 75 MG Docusate Sodium (coLACE CAP) 100 mg BID PRN PO 01/17/17 19:45 02/16/17 19:44 Lisinopril (Zestril Tab) 5 mg QAM PO 01/18/17 09:00 02/17/17 08:59 01/25/17 08:37 5 MG Verapamil HCl (Calan-Sr Tab) 120 mg HS PO 01/17/17 21:00 02/16/17 20:59 01/24/17 21:06 120 MG Warfarin Sodium (Coumadin Tab) 5 mg HS PO 01/17/17 21:00 02/16/17 20:59 01/24/17 21:06 5 MG Tramadol HCl (Ultram Tab) 50 mg Q4H PRN PO 01/17/17 20:00 02/16/17 19:59 01/23/17 14:14 50 MG Acetaminophen (Tylenol Tab) 650 mg Q4H PRN PO 01/17/17 20:00 02/16/17 19:59 01/23/17 09:20 650 MG Al Hydrox/Mg Hydrox/Simethicone (Maalox Max Susp) 15 ml Q4H PRN PO 01/17/17 20:00 02/16/17 19:59 01/19/17 11:09 15 ML Magnesium Hydroxide (Milk Of Magnesia Susp) 30 ml Q6H PRN PO 01/17/17 20:00 02/16/17 19:59 Polyethylene (Miralax Powder Packet) 17 gm DAILY PRN PO 01/17/17 22:00 02/16/17 21:59 Ondansetron HCl (Zofran Inj) 4 mg Q6H PRN IV 01/17/17 20:00 02/16/17 19:59 01/22/17 05:16 4 MG Glucose (Glucose 40% Gel) 15-30 GRAMS 15 GRAMS... UD PRN PO 01/17/17 22:00 02/16/17 21:59 Glucose (Glucose Chew Tab) 4-8 Tablets 4 Tabl... UD PRN PO 01/17/17 22:00 02/16/17 21:59 Dextrose (Dextrose 50% 50ML Syringe) 25-50ML OF 50% DW IV FOR... UD PRN IV 01/17/17 22:00 02/16/17 21:59 Glucagon (Glucagon Inj) 1 mg UD PRN SQ 01/17/17 22:00 02/16/17 21:59 Miscellaneous (Iv Fluids Completed) 1 ea PRN PRN N/A 01/17/17 22:15 01/17/18 22:14 Lidocaine (Lidoderm Patch 5%) 1 patch QAM TD 01/18/17 20:00 02/17/17 19:59 01/25/17 08:38 1 PATCH Miscellaneous (Remove Lidoderm Patch) 1 ea DAILY@21 N/A 01/19/17 06:00 02/18/17 05:59 01/24/17 21:06 1 EA Miscellaneous Information (Consult Glycemic Management Pharmacy) 1 ea UD PRN N/A 01/19/17 17:55 02/18/17 17:54 Metoclopramide HCl (Reglan Inj) 10 mg Q6H IV. 01/19/17 20:00 02/18/17 18:29 01/25/17 08:53 10 MG Hydromorphone HCl (Dilaudid Inj) 0.5 mg Q4H PRN IV 01/20/17 18:00 02/03/17 17:59 01/21/17 21:15 0.5 MG Promethazine HCl 12.5 mg/Sodium Chloride 50.5 ml @ 204 mls/hr Q6H PRN IV 01/21/17 16:00 02/20/17 15:59 Insulin Aspart (novoLOG ASPART) SLIDING SCALE G... ACHS SC 01/22/17 08:00 02/21/17 07:59 01/25/17 08:50 17 UNITS Insulin Detemir (Levemir Flexpen/ FlexTouch) 48 units BID SQ 01/25/17 09:00 02/24/17 08:59 01/25/17 08:52 48 UNITS Sodium Chloride (Sodium Chloride Tab) 2 gm BID PO 01/25/17 09:00 02/24/17 08:59 01/25/17 09:33 2 GM Furosemide (Lasix Tab) 10 mg BID17 PO 01/25/17 17:00 02/24/17 16:59 Impression (1) Hypertension (2) Hyponatremia (3) Hip pain (4) Acute renal failure (ARF) Mrs. Garcia was admitted for evaluation of low back, L leg pain and KELLY. She has chronic hyponatremia w/ serum sodium 125 - 130 mmol/l while on thiazide diuretic. Kidney function has recovered with IV hydration but serum sodium has progressively dropped to 114 mmol/L. Uosm is inappropriately elevated at 245. IVF and thiazide diuretic have been stopped. Patient has been given Tolvaptan this morning. She is asymptomatic. She has no headache or visual change. Recommendations HYPONATREMIA: -- Likely due to multiple factors including thiazide diuretic, pain, SSRI. -- Uosm has been inappropriately elevated -- Recommend avoiding Thiazide diuretics -- Tolvaptan has been stopped. Uosm remains inappropriately elevated -- Will start NaCl 2 g po BID and Furosemide 10 mg po BID -- Monitor serum sodium, urine osmolality, kidney function and volume status HYPOKALEMIA: -- Corrected. Will monitor HYPERTENSION: -- Blood pressure improved. Will monitor -- Avoid thiazide diuretics OTHER: -- Continue physical therapy for strengthening
--- NOTE | 2017-01-25 11:10 | Pharmacy Progress Note ---
Glycemic Control Progress Note Date of Service Jan 25, 2017. Scope Glycemic Pharmacist consulted for glycemic control to write orders per [facility] inpatient glycemic control protocol. Objective Accuchecks BSG (last 24hrs): Test 01/24/17 12:08 01/24/17 16:59 01/24/17 20:41 01/25/17 07:26 Bedside Glucose 174 mg/dl (70-90) 76 mg/dl (70-90) 189 mg/dl (70-90) Random Glucose 168 mg/dl (70-99) Test 01/25/17 08:10 Bedside Glucose 169 mg/dl (70-90) HbA1c: Test 01/20/17 05:29 Hemoglobin A1c 10.0 % (4.5-5.6) H Recent Pertinent Medications The patient is currently receiving: * Basal insulin: Lantus 44 units every 12 hours * Correctional Insulin: Novolog Correction per scale ACHS Goal Range: Low 110 mg/dL - High 140 mg/dL Correction Factor: 15 mg/dL/unit * Prandial insulin: Per carb ratio of 1 unit per 4 grams CHO consumed Outpatient Anti-Diabetic Meds * Levemir 50 units BID + Novolog 18 units AC Assessment & Plan ASSESSMENT: * See progress note from 01/24 for more background info, in short: * Pt receiving SQ basal bolus insulin regimen for hyperglycemia secondary to baseline DM (outpatient regimen on hold) * Patient is currently receiving an average of 114 units of insulin per day * 88 units of basal insulin * BSGs ranging 76 - 189 mg/dl over the past 24hrs * Changes needed to insulin regimen: * AM Fasting BSG = 169 mg/dl. This is slightly above goal range for patient based on inpatient targets and co-morbidities. Therefore Basal insulin needs increased - will plan to do so by ~10% * Post-prandial BSGs are somewhat all over the place. She continues to have lower BSGs prior to dinner - not sure if this is the Levemir "peaking" or just too much correctional with lunch. Since I am increasing the basal secondary to elevated fasting BSGs, will plan to loosen the CF to prevent a low prior to dinner. She may eventually need more prandial insulin but I'm hesitant to do this until I see what today's changes do. PLAN FOR INPATIENT GLYCEMIC CONTROL: * Increase Levemir to 48 units SQ BID * LOOSEN correction factor to 20 mg/dl/unit * Continue carb ratio of 1 unit per 4 grams CHO consumed * Continue goal range of Low 110 mg/dL - High 140 mg/dL RECOMMENDATIONS FOR DISCHARGE: * Continue current regimen. 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
[2017-01-25 15:21] VITALS: BP 131/69; PULSE 76; TEMP 36.5; O2SAT 97
[2017-01-25 15:35] LABS: BUN/CREATININE RATIO 25.2 (10-20); CALCIUM 9.3 mg/dl (8.5-10.1); CREATININE 1.6 mg/dl (0.60-1.20)
[2017-01-25 15:41] LABS: POTASSIUM 4.1 mmol/L (3.5-5.1)
--- NOTE | 2017-01-25 16:25 | Progress Note ---
Subjective Date of Service: Jan 25, 2017. Subjective Pt evaluation today including: conversation w/ patient, physical exam, chart review, lab review, review of studies, review of inpatient medication list Resting comfortably in bed Denies any more nausea, vomiting No acute events overnight Problem List Medical Problems: (1) Acute renal failure (ARF) Status: Acute (2) Hip pain Permanent Comment: back and SI joint pain Status: Acute (3) Pacemaker malfunction Status: Acute (4) TIA (transient ischemic attack) Status: Acute Review of Systems Constitutional: No fever, No chills, No sweats, No weight loss, No weakness ENT: No hearing loss, No unusual epistaxis, No nasal symptoms, No sore throat Respiratory: No cough, No sputum, No wheezing, No shortness of breath, No dyspnea on exertion Cardiac: No chest pain, No orthopnea, No PND, No edema Abdomen: No pain, No nausea, No vomiting, No diarrhea, No constipation Musculoskeletal: No joint pain, No muscle pain, No swelling, No calf pain Female : No dysuria, No urinary frequency, No hematuria, No incontinence Neurologic: No memory loss, No paralysis, No weakness, No numbness/tingling Psychiatric: No depression symptoms, No anhedonism, No anxiety, No insomnia Endo: No see HPI, No fatigue, No excessive thirst, No excessive urination Skin: No rash, No itch, No new/changing skin lesions, No color change Objective Vital Signs Date Time Temp Pulse Resp B/P (MAP) Pulse Ox O2 Delivery O2 Flow Rate FiO2 01/25/17 15:21 36.5 76 16 131/69 (89) 97 Room Air 01/25/17 07:56 96 Room Air 01/25/17 07:41 36.8 78 12 128/88 (101) 96 Room Air 01/25/17 07:30 96 Room Air 01/24/17 23:50 Room Air 01/24/17 22:55 36.8 82 16 123/79 (94) 93 Room Air 01/24/17 21:02 74 148/90 (109) Physical Exam General Appearance: WD/WN, no apparent distress Eyes: normal inspection, PERRL, EOMI, sclerae normal Neck: supple, no adenopathy, thyroid normal, no JVD Respiratory/Chest: chest non-tender, lungs clear, normal breath sounds, no respiratory distress Cardiovascular: regular rate, rhythm, no edema, no gallop, no JVD Abdomen: normal bowel sounds, non tender, soft, no organomegaly Extremities: normal range of motion, non-tender, normal inspection, no pedal edema Neurologic/Psychiatric: no motor/sensory deficits, alert, normal mood/affect, oriented x 3 Laboratory Results Last 24 Hours Test 01/24/17 16:59 01/24/17 20:37 01/24/17 20:41 01/25/17 07:26 Bedside Glucose 76 mg/dl 189 mg/dl Sodium Level 128 mmol/L 126 mmol/L Potassium Level 5.3 mmol/L Chloride Level 98 mmol/L Carbon Dioxide Level 20 mmol/L Anion Gap 8.0 mmol/L Blood Urea Nitrogen 37 mg/dl Creatinine 1.50 mg/dl Est Creatinine Clear Calc Drug Dose 26.5 ml/min Estimated GFR () 38.8 Estimated GFR (Non- 33.5 BUN/Creatinine Ratio 24.8 Random Glucose 168 mg/dl Calcium Level 9.2 mg/dl Test 01/25/17 08:10 01/25/17 11:53 01/25/17 12:01 01/25/17 15:03 Bedside Glucose 169 mg/dl 142 mg/dl Sodium Level 129 mmol/L 129 mmol/L Potassium Level 4.1 mmol/L Chloride Level 100 mmol/L Carbon Dioxide Level 22 mmol/L Anion Gap 7.0 mmol/L Blood Urea Nitrogen 40 mg/dl Creatinine 1.60 mg/dl Est Creatinine Clear Calc Drug Dose 24.9 ml/min Estimated GFR () 35.9 Estimated GFR (Non- 31.0 BUN/Creatinine Ratio 25.2 Random Glucose 146 mg/dl Calcium Level 9.3 mg/dl Assessment and Plan (1) Hyponatremia (2) Hip pain (3) Pacemaker 76 y/o F Hx CAD - CABG 12/28, IDDM, HTN, AF, atrial pacer. Pt presents with a primary compliant of L hip pain. She states that this has been progressive over the course of 2 days and she now has difficulty walking. She denies trauma to the area. She denies CP, SOB, N/V, diarrhea, dysuria or fevers. Imaging did not reveal any acute fractures. A CT abdomen/pelvis was however suspicious for a soft tissue mass in the rectum. She did not have any related symptoms. Hip pain - having difficulty with ambulation - no evidence of fracture - orthopedics consulted, no surgical intervention required, PAIN RESOLVED Continue lidoderm patch 5% daily Patient has not needed dilaudid in last 2 days Symptomatic hyponatremia - resolving improved to 129 today IV hydration dced on 01/21 due to worsening hyponatremia Total of 3 doses of samsca 15 mg PO given during hospital course Continue to repeat serum Na q 4hrs Nephrology consulted Fluid restriction of 1000 ml daily in addition to salt tabs Would like to watch pt for one more night, likely DC in AM ARF - likely prerenal in nature - slightly worsening, hold IVF, better PO intake hold lasix and lisinopril Mass seen in rectum - surgery consulted - no related symptoms at present. No surgical intervention required HTN - Stable, cont, Coreg - can provide Hydralazine PRN if needed CAD - post CABG 12/28 - cont Coreg, statin, ASA DM - Hg A1c 10, cont levemir 44 units BID in addition to SSI, glycemic control consult appreciated Problem Qualifiers (1) Hip pain: Laterality: left Qualified Codes: M25.552 - Pain in left hip
[2017-01-25] MEDS ORDERED: FUROSEMIDE 20 MG TAB PO SCH (17:00)
[2017-01-25 20:23] VITALS: BP 132/83
[2017-01-25] MEDS: VERAPAMIL HCL 120 MG TABCR PO SCH (20:24)
[2017-01-25] MEDS: WARFARIN SOD 5 MG TAB PO SCH (20:25)
[2017-01-25 23:05] VITALS: BP 113/71; PULSE 76; TEMP 36.6; O2SAT 94
[2017-01-26] MEDS: METOCLOPRAMIDE HCL INJ 5 MG/ML 2 ML VIAL IV. SCH ×3 (02:39→14:00)
[2017-01-26 07:05] VITALS: BP 152/83; PULSE 75; TEMP 36.8; O2SAT 97
[2017-01-26 08:00] VITALS: O2SAT 97
[2017-01-26 08:13] LABS: BUN/CREATININE RATIO 26.2 (10-20); CALCIUM 9.2 mg/dl (8.5-10.1); CREATININE 1.3 mg/dl (0.60-1.20); POTASSIUM 4.4 mmol/L (3.5-5.1)
--- NOTE | 2017-01-26 09:05 | Nephrology Progress Note ---
Nephrology Progress Note Date of Service Jan 26, 2017. Chief Complaint Hyponatremia Subjective Mrs. Garcia was seen & examined in her hospital room this morning. Her back discomfort has improved. She has been able to ambulate w/ physical therapy. She is tolerating oral NaCl without GI upset. Mrs. Garcia reports that she had been on Furosemide in the past and still has some of her medication at home. Review of Systems Constitutional: No fever Cardiovascular: No chest pain Respiratory: No dyspnea at rest Abdomen: No pain, No nausea, No vomiting Extremities: No leg edema A complete review of systems was performed. Pertinent positives are noted above. All other systems are negative. Vital Signs Last 8 Hrs Date Time Temp Pulse Resp B/P (MAP) Pulse Ox O2 Delivery O2 Flow Rate FiO2 01/26/17 07:05 36.8 75 16 152/83 (106) 97 Room Air Last Recorded Weight Weight (Kilograms): 60.000 Physical Exam General Appearance: no apparent distress Head: atraumatic (temporal muscle wasting) Neck: no adenopathy, no JVD Respiratory/Chest: lungs clear Cardiovascular: regular rate, rhythm, no murmur Abdomen/GI: normal bowel sounds, non tender, soft Extremities/Musculoskelatal: no calf tenderness, no pedal edema Neurologic/Psych: alert, oriented x 3 Family History Hypertension Stroke Negative for CKD / ESRD Social History Smokeless Tobacco Use: No Alcohol Use: none Drug Use: none Marital Status: Occupation: retired . Retired. Remote h/o tobacco use. Laboratory Results Past 24 Hours 01/25/17 12:01 01/25/17 15:03 01/25/17 17:00 01/26/17 07:11 Test 01/25/17 11:53 01/25/17 15:03 01/25/17 16:47 01/25/17 20:19 Bedside Glucose 142 mg/dl (70-90) 127 mg/dl (70-90) 129 mg/dl (70-90) Anion Gap 7.0 mmol/L (3-11) Est Creatinine Clear Calc Drug Dose 24.9 ml/min Estimated GFR () 35.9 Estimated GFR (Non- 31.0 BUN/Creatinine Ratio 25.2 (10-20) Calcium Level 9.3 mg/dl (8.5-10.1) Test 01/26/17 04:15 7/15/17 07:11 Urine Osmolality 541 mOms/kg (500-800) Anion Gap 9.0 mmol/L (3-11) Est Creatinine Clear Calc Drug Dose 30.6 ml/min Estimated GFR () 46.2 Estimated GFR (Non- 39.8 BUN/Creatinine Ratio 26.2 (10-20) Calcium Level 9.2 mg/dl (8.5-10.1) Allergies Coded Allergies: Amoxicillin (Unverified Allergy, Intermediate, ITCHING/, 01/17/17) Morphine (Verified Adverse Reaction, Mild, NOSE ITCHING , 01/11/16) Nifedipine (Verified Adverse Reaction, Mild, SHAKING, 01/11/16) Medications Current Inpatient Medications Medications (Trade) Dose Ordered Sig/Estephanie Route Start Time Stop Time Status Last Admin Dose Admin Carvedilol (Coreg Tab) 6.25 mg BID PO 01/17/17 21:00 02/16/17 20:59 01/25/17 20:24 6.25 MG Citalopram Hydrobromide (celeXA TAB) 20 mg QAM PO 01/18/17 09:00 02/17/17 08:59 01/25/17 08:33 20 MG Clopidogrel Bisulfate (plAVix TAB) 75 mg QAM PO 01/18/17 09:00 02/17/17 08:59 01/25/17 08:36 75 MG Docusate Sodium (coLACE CAP) 100 mg BID PRN PO 01/17/17 19:45 02/16/17 19:44 Verapamil HCl (Calan-Sr Tab) 120 mg HS PO 01/17/17 21:00 02/16/17 20:59 01/25/17 20:24 120 MG Warfarin Sodium (Coumadin Tab) 5 mg HS PO 01/17/17 21:00 02/16/17 20:59 01/25/17 20:25 5 MG Tramadol HCl (Ultram Tab) 50 mg Q4H PRN PO 01/17/17 20:00 02/16/17 19:59 01/23/17 14:14 50 MG Acetaminophen (Tylenol Tab) 650 mg Q4H PRN PO 01/17/17 20:00 02/16/17 19:59 01/23/17 09:20 650 MG Al Hydrox/Mg Hydrox/Simethicone (Maalox Max Susp) 15 ml Q4H PRN PO 01/17/17 20:00 02/16/17 19:59 01/19/17 11:09 15 ML Magnesium Hydroxide (Milk Of Magnesia Susp) 30 ml Q6H PRN PO 01/17/17 20:00 02/16/17 19:59 Polyethylene (Miralax Powder Packet) 17 gm DAILY PRN PO 01/17/17 22:00 02/16/17 21:59 Ondansetron HCl (Zofran Inj) 4 mg Q6H PRN IV 01/17/17 20:00 02/16/17 19:59 01/22/17 05:16 4 MG Glucose (Glucose 40% Gel) 15-30 GRAMS 15 GRAMS... UD PRN PO 01/17/17 22:00 02/16/17 21:59 Glucose (Glucose Chew Tab) 4-8 Tablets 4 Tabl... UD PRN PO 01/17/17 22:00 02/16/17 21:59 Dextrose (Dextrose 50% 50ML Syringe) 25-50ML OF 50% DW IV FOR... UD PRN IV 01/17/17 22:00 02/16/17 21:59 Glucagon (Glucagon Inj) 1 mg UD PRN SQ 01/17/17 22:00 02/16/17 21:59 Miscellaneous (Iv Fluids Completed) 1 ea PRN PRN N/A 01/17/17 22:15 01/17/18 22:14 Lidocaine (Lidoderm Patch 5%) 1 patch QAM TD 01/18/17 20:00 02/17/17 19:59 01/25/17 08:38 1 PATCH Miscellaneous (Remove Lidoderm Patch) 1 ea DAILY@21 N/A 01/19/17 06:00 02/18/17 05:59 01/25/17 20:23 1 EA Miscellaneous Information (Consult Glycemic Management Pharmacy) 1 ea UD PRN N/A 01/19/17 17:55 02/18/17 17:54 Metoclopramide HCl (Reglan Inj) 10 mg Q6H IV. 01/19/17 20:00 02/18/17 18:29 01/26/17 08:13 10 MG Hydromorphone HCl (Dilaudid Inj) 0.5 mg Q4H PRN IV 01/20/17 18:00 02/03/17 17:59 01/21/17 21:15 0.5 MG Promethazine HCl 12.5 mg/Sodium Chloride 50.5 ml @ 204 mls/hr Q6H PRN IV 01/21/17 16:00 02/20/17 15:59 Insulin Aspart (novoLOG ASPART) SLIDING SCALE G... ACHS SC 01/22/17 08:00 02/21/17 07:59 01/25/17 18:21 11 UNITS Insulin Detemir (Levemir Flexpen/ FlexTouch) 48 units BID SQ 01/25/17 09:00 02/24/17 08:59 01/25/17 20:33 48 UNITS Sodium Chloride (Sodium Chloride Tab) 2 gm BID PO 01/25/17 09:00 02/24/17 08:59 01/25/17 20:25 2 GM Impression (1) Hypertension (2) Hyponatremia (3) Hip pain (4) Acute renal failure (ARF) Mrs. Garcia was admitted for evaluation of low back, L leg pain and KELLY. She has chronic hyponatremia w/ serum sodium 125 - 130 mmol/l while on thiazide diuretic. Kidney function has recovered with IV hydration but serum sodium has progressively dropped to 114 mmol/L. Uosm is inappropriately elevated at 245. IVF and thiazide diuretic have been stopped. Patient has been given Tolvaptan this morning. She is asymptomatic. She has no headache or visual change. Recommendations HYPONATREMIA: -- Likely due to multiple factors including thiazide diuretic, pain, SSRI. -- Uosm has been inappropriately elevated -- Recommend avoiding Thiazide diuretics -- Tolvaptan has been stopped. Uosm remains inappropriately elevated. Patient requires low dose loop diuretic to force free water excretion -- Continue NaCl 2 g po BID and Furosemide 10 mg po BID -- Patient lives in [place], [place] near [place]. Her PCP is Dr. Payne. If discharge is anticipated, recommend patient follow up w/ PCP within 2 weeks for ongoing monitoring of serum sodium. HYPOKALEMIA: -- Corrected. Will monitor HYPERTENSION: -- Blood pressure improved. Will monitor -- Avoid thiazide diuretics OTHER: -- Continue physical therapy for strengthening
[2017-01-26] MEDS: SODIUM CHLORIDE 1 GM TAB PO SCH (09:33)
[2017-01-26] MEDS: CARVEDILOL 6.25 MG TAB PO SCH (09:34)
[2017-01-26] MEDS: CLOPIDOGREL BISULFATE 75 MG TAB PO SCH (09:34)
[2017-01-26] MEDS: CITALOPRAM 20 MG TAB PO SCH (09:34)
[2017-01-26] MEDS: LIDODERM (LIDOCAINE) PATCH 5% TD SCH (09:37)
[2017-01-26] MEDS: INSULIN ASPART 100 UNITS/ML 3 ML PEN SC SCH ×2 (09:41→13:06)
[2017-01-26] MEDS: INSULIN DETEMIR FLEXPEN/FLEX TOUCH 100 UNITS/ML 3ML SQ SCH (09:42)
[2017-01-26 09:45] VITALS: BP 121/73; PULSE 75
[2017-01-26] MEDS ORDERED: LDDP5 TD (10:36)
[2017-01-26] MEDS ORDERED: SDMC1 PO (10:36)
[2017-01-26] MEDS ORDERED: FURO20TA PO (10:36)
--- NOTE | 2017-01-26 10:40 | Discharge Instructions ---
Discharge Instructions Date of Service Jan 26, 2017. Admission Reason for Admission: Hip Pain, Hyponatremia Discharge Discharge Diagnosis / Problem: hip pain, hyponatremia Discharge Goals Goal(s): Decrease discomfort, Improve function, Increase independence, Improve disease control, Diagnostic testing, Therapeutic intervention Activity Recommendations Activity Limitations: resume your previous activity Exercise/Sports Limitations: none Shower/Bathe: no limitations . Instructions / Follow-Up Instructions / Follow-Up Patient to be discharged home Please note changes in medication Please continue to take lidoderm patch 5% daily for pain Please continue taking salt tabs twice a day Please note to STOP taking chlorthalidone medication, please dispose of this Also added lasix medication, please take a HALF tablet twice a day Please follow up with Dr Payne in 1-2 weeks, will need further monitoring of serum sodium Current Hospital Diet Patient's current hospital diet: AHA Diet (Heart Healthy), Diabetes Type 2 Diet Discharge Diet Recommended Diet: AHA Diet (Heart Healthy), Diabetes Type 2 Diet Pending Studies Studies pending at discharge: no Laboratory Results Hemoglobin A1c Test 01/20/17 05:29 Range/Units Estimated Average Glucose 240 mg/dl Hemoglobin A1c 10.0 H 4.5-5.6 % Medical Emergencies . Who to Call and When: Medical Emergencies: If at any time you feel your situation is an emergency, please call 911 immediately. . Non-Emergent Contact Non-Emergency issues call your: Primary Care Provider Call Non-Emergent contact if: you have a fever, your pain is worsening . . "Provider Documentation" section prepared by Aman Galindo. . VTE Core Measure Inpt VTE Proph given/why not?: Unfractionated heparin SQ
[2017-01-26 11:20] VITALS: BP 121/73; PULSE 75; TEMP 36.8; O2SAT 97
[2017-01-26 12:13] VITALS: BP 121/73; PULSE 75; TEMP 36.8; O2SAT 97
--- NOTE | 2017-01-26 13:57 | Discharge Summary ---
Discharge Summary Date of Service Jan 26, 2017. Discharge Summary Admission Date: Jan 20, 2017 at 15:06 Discharge Date: Jan 26, 2017 Discharge Disposition: Home Principal Diagnosis: Hyponatremia, hip pain Immunizations: Have You Had Influenza Vaccine: Yes History of Tetanus Vaccine?: Yes History of Pneumococcal: No History of Hepatitis B Vaccine: No Consultations: Nephrology Orthopedic surgery General surgery Medication Reconciliation New Medications: Furosemide (Lasix) 20 Mg Tab 0.5 TAB PO BID for 30 Days, #30 TAB 1 Refill Lidocaine (Lidocaine) 1 Patch Tdsy 1 PATCH TD QAM, #30 PATCH Sodium Chloride (Sodium Chloride) 1 Gm Tab 2 GM PO BID, #60 TAB Continued Medications: Carvedilol (Coreg) 6.25 Mg Tab 6.25 MG PO BID Citalopram Hydrobromide (Celexa) 20 Mg Tab 20 MG PO QAM Clopidogrel (Plavix) 75 Mg Tab 75 MG PO QAM Docusate Sodium (Colace) 100 Mg Cap 1 CAP PO BID PRN for Constipation Ergocalciferol (Vitamin D 82414 Unit) 50,000 Unit Cap 31499 UNIT PO SATURDAY Fenofibrate (Tricor) 54 Mg Tab 54 MG PO QAM Insulin Aspart (Novolog Flexpen) 100 Units/Ml Inj 18 UNITS SQ AC Insulin Detemir (Levemir Flextouch) 100 Unit/Ml Inj 50 UNITS SQ BID Lisinopril (Zestril) 5 Mg Tab 5 MG PO QAM Potassium Chloride (Micro-K Ext Rel) 10 Meq Capcr 10 MEQ PO BID Verapamil Hcl (Calan Sr Ext Rel) 120 Mg Tab 120 MG PO HS Warfarin Sod (Jantoven) 5 Mg Tab 5 MG PO HS SATURDAY,SATURDAY,SATURDAY,SATURDAY Warfarin Sod (Jantoven) 5 Mg Tab 7.5 MG PO HS SATURDAY,SATURDAY,SATURDAY Discontinued Medications: Chlorthalidone (Hygroton) 25 Mg Tab 25 MG PO QAM Discharge Exam Review of Systems: Constitutional: No fever, No chills, No sweats, No weight loss, No weakness ENT: No hearing loss, No unusual epistaxis, No nasal symptoms, No sore throat, No tinnitus Respiratory: No cough, No sputum, No wheezing, No shortness of breath Cardiovascular: No chest pain, No orthopnea, No PND, No edema Abdomen: No pain, No nausea, No vomiting, No diarrhea Musculoskeletal: No joint pain, No muscle pain, No swelling, No calf pain Genitourinary - Female: No dysuria, No urinary frequency, No urinary urgency , No urinary incontinence Neurologic: No memory loss, No paralysis, No weakness, No numbness/tingling Psychiatric: No depression symptoms, No anhedonism, No anxiety, No insomnia Physical Exam: General Appearance: WD/WN, no apparent distress Eyes: normal inspection, PERRL, EOMI, sclerae normal Neck: supple, no adenopathy, thyroid normal, no JVD Respiratory/Chest: chest non-tender, lungs clear, normal breath sounds, no respiratory distress Cardiovascular: regular rate, rhythm, no edema, no gallop, no JVD Abdomen / GI: normal bowel sounds, non tender, soft, no organomegaly Extremities: normal inspection, no calf tenderness, normal capillary refill , no pedal edema Neurologic/Psychiatric: alert, normal mood/affect, normal reflexes, oriented x 3 Hospital Course (1) Hyponatremia (2) Hip pain (3) Pacemaker 76 y/o F Hx CAD - CABG 12/28, IDDM, HTN, AF, atrial pacer. Pt presents with a primary compliant of L hip pain. She states that this has been progressive over the course of 2 days and she now has difficulty walking. She denies trauma to the area. She denies CP, SOB, N/V, diarrhea, dysuria or fevers. Imaging did not reveal any acute fractures. A CT abdomen/pelvis was however suspicious for a soft tissue mass in the rectum. She did not have any related symptoms. Hip pain - having difficulty with ambulation - no evidence of fracture - orthopedics consulted, no surgical intervention required, PAIN RESOLVED Continue lidoderm patch 5% daily Patient has not needed dilaudid in last 2 days Discharge home with lidoderm patch 5% to apply daily Symptomatic hyponatremia - resolving improved to 130 on discharge IV hydration dced on 01/21 due to worsening hyponatremia Lowest serum sodium during course was 114 Total of 3 doses of samsca 15 mg PO given during hospital course Nephrology consulted Fluid restriction of 1000 ml daily in addition to salt tabs DC with salt tabs twice a day, lasix 10 mg PO BID to promote water excretion and TO STOP CHLORTHALIDONE and avoid thiazides Will need to f/u with PCP for monitoring serum sodium ARF - likely prerenal in nature - imprved, hold IVF, better PO intake Mass seen in rectum - surgery consulted - no related symptoms at present. No surgical intervention required HTN - Stable, cont, Coreg - can provide Hydralazine PRN if needed CAD - post CABG 12/28 - cont Coreg, statin, ASA DM - Hg A1c 10, cont levemir 44 units BID in addition to SSI, glycemic control consult appreciated Total Time Spent: Greater than 30 minutes This includes examination of the patient, discharge planning, medication reconciliation, and communication with other providers. Discharge Instructions Please refer to the electronic Patient Visit Report (Discharge Instructions) for additional information. Additional Copies To Shankar Payne M.D. Problem Qualifiers (1) Hip pain: Laterality: left Qualified Codes: M25.552 - Pain in left hip
== END 2017-01-26 15:53 | disposition home or self-care (01) | DRG 641 ==
LOC: C.EDB 13:39 → C.MSW 19:56 → ENRESERV 20:26 → OBSVTOIN 01-20 15:06
PROVIDERS: ADMIT Internal Medicine; ATTEND Hospitalist
DX: E87.1 Hypo-osmolality and hyponatremia (principal); N17.9 Acute kidney failure, unspecified; M25.552 Pain in left hip; I25.10 Atherosclerotic heart disease of native coronary artery without angina pectoris; Z95.1 Presence of aortocoronary bypass graft; E10.9 Type 1 diabetes mellitus without complications; I25.2 Old myocardial infarction; I10 Essential (primary) hypertension; Z95.0 Presence of cardiac pacemaker; Z82.49 Family history of ischemic heart disease and other diseases of the circulatory system; E11.9 Type 2 diabetes mellitus without complications; I48.2 Chronic atrial fibrillation; E78.5 Hyperlipidemia, unspecified; Z87.891 Personal history of nicotine dependence